=== PATIENT | male | born 1960 | race Caucasian/White ===

== ENCOUNTER 2019-11-15 11:16 | Outpatient (CLI) | payer MEDICARE, SELFPAY ==
[2019-11-15 11:28] LABS: Basophils Absolute Auto 0.01 K/mm3 (0.00-0.10); Basophils Percent Auto 0.3 % (0.0-1.0); Eosinophils Absolute Auto 0.04 K/mm3 (0.02-0.50); Hematocrit 47.8 % (40.0-54.0); Hemoglobin 16.1 g/dL (14.0-18.0); Immature Granulocyte Absolute 0.01 K/mm3 (0.00-0.00); Immature Granulocyte Percent A 0.3 % (0.0-0.0); Lymphocytes Absolute Auto 0.57 K/mm3 (1.10-4.50); Lymphocytes Percent Auto 14.4 % (18.0-42.0); Mean Corpuscular HGB Conc 33.7 g/dL (32.0-36.0); Mean Corpuscular Hemoglobin 31.4 pg (27.0-31.0); Mean Corpuscular Volume 93.4 fL (78.0-102.0); Mean Platelet Volume 9.1 fl (8.7-11.0); Monocytes Absolute Auto 0.44 K/mm3 (0.10-0.90); Monocytes Percent Auto 11.1 % (2.0-11.0); Neutrophils Absolute Auto 2.9 K/mm3 (1.7-7.2); Neutrophils Percent Auto 72.9 % (50.0-70.0); Platelet Count Result 184 K/mm3 (150-420); Red Blood Count 5.12 M/mm3 (4.70-6.10)
[2019-11-15 12:29] LABS: Alanine Aminotransferase 46 U/L (16-63); Albumin Level 3.9 g/dL (3.4-5.0); Alkaline Phosphatase 82 U/L (46-116); Anion Gap 11.2 mmol/L (7-16); Aspartate Amino Transferase 26 U/L (15-37); Bilirubin,Total 1.8 mg/dL (0.00-1.00); Blood Urea Nitrogen 11 mg/dL (7-18); Calcium 8.7 mg/dL (8.5-10.1); Carbon Dioxide 30 mmol/L (21-32); Chloride 104 mmol/L (98-108); Estimated Glomerular Filt Rate > 60; Glucose 99 mg/dL (70-99); Osmolality Calculated 291 mOsm/kg (285-295); Potassium 4.2 mmol/L (3.5-5.1); Sodium 141 mmol/L (136-145); Total Protein 6.8 g/dL (6.4-8.2)
[2019-11-18 05:27] LABS: Carcinoembryonic Antigen 0.9 ng/mL (0.0-2.4)
== END 2019-11-15 11:17 | disposition home or self-care (01) ==
LOC: CHSLAB 11:19
PROVIDERS: Visit Provider Internal Medicine Hematology & Oncology
DX: C20 Malignant neoplasm of rectum (principal)
CPT/HCPCS: 36415; 80053; 82378; 85025

== ENCOUNTER 2020-07-09 08:11 | Outpatient (CLI) | payer MEDICARE, SELFPAY ==
[2020-07-09 08:22] LABS: Basophils Absolute Auto 0.01 K/mm3 (0.00-0.10); Basophils Percent Auto 0.2 % (0.0-1.0); Eosinophils Absolute Auto 0.05 K/mm3 (0.02-0.50); Eosinophils Percent Auto 1.1 % (1.0-6.0); Hematocrit 50.9 % (40.0-54.0); Hemoglobin 17.1 g/dL (14.0-18.0); Immature Granulocyte Absolute 0.01 K/mm3 (0.00-0.00); Immature Granulocyte Percent A 0.2 % (0.0-0.0); Lymphocytes Absolute Auto 0.65 K/mm3 (1.10-4.50); Lymphocytes Percent Auto 14.1 % (18.0-42.0); Mean Corpuscular HGB Conc 33.6 g/dL (32.0-36.0); Mean Corpuscular Hemoglobin 33.1 pg (27.0-31.0); Mean Corpuscular Volume 98.5 fL (78.0-102.0); Mean Platelet Volume 9.2 fl (8.7-11.0); Monocytes Absolute Auto 0.53 K/mm3 (0.10-0.90); Monocytes Percent Auto 11.5 % (2.0-11.0); Neutrophils Absolute Auto 3.4 K/mm3 (1.7-7.2); Neutrophils Percent Auto 72.9 % (50.0-70.0); Platelet Count Result 172 K/mm3 (150-420); Red Blood Count 5.17 M/mm3 (4.70-6.10); Red Cell Distribution Width 12.6 % (11.6-14.4); White Blood Count 4.6 K/mm3 (4.8-10.8)
[2020-07-09 10:07] LABS: Alanine Aminotransferase 42 U/L (16-63); Albumin Level 4.3 g/dL (3.4-5.0); Alkaline Phosphatase 84 U/L (46-116); Anion Gap 9 mmol/L (8-16); Aspartate Amino Transferase 25 U/L (15-37); Bilirubin,Total 2.7 mg/dL (0.00-1.00); Blood Urea Nitrogen 14 mg/dL (7-18); Carbon Dioxide 31 mmol/L (21-32); Chloride 101 mmol/L (98-108); Cholesterol 186 mg/dL (0-200); Estimated Glomerular Filt Rate > 60; Glucose 100 mg/dL (70-99); HDL Direct 74 mg/dL (40-60); LDL Cholesterol Calculated 100 mg/dL (<130); Osmolality Calculated 292 mOsm/kg (285-295); Potassium 3.8 mmol/L (3.5-5.1); Sodium 141 mmol/L (136-145); Total Protein 7.5 g/dL (6.4-8.2); Triglycerides 60 mg/dL (0-150)
[2020-07-09 10:14] LABS: Prostate Specific Antigen < 0.1 ng/mL (< OR = 4.0)
[2020-07-11 12:35] LABS: Carcinoembryonic Antigen 0.8 ng/mL (0.0-2.4)
== END 2020-07-09 08:12 | disposition home or self-care (01) ==
PROVIDERS: PCP Family Medicine; Visit Provider Internal Medicine Hematology & Oncology
DX: Z13.220 Encounter for screening for lipoid disorders (principal); Z12.5 Encounter for screening for malignant neoplasm of prostate; I10 Essential (primary) hypertension; C20 Malignant neoplasm of rectum
CPT/HCPCS: 36415; 80053; 80061; 82378; 84153; 85025; G0103

== ENCOUNTER 2021-02-11 11:27 | Outpatient (CLI) | payer MEDICARE, SELFPAY ==
[2021-02-11 11:37] LABS: Basophils Absolute Auto 0.01 K/mm3 (0.00-0.10); Basophils Percent Auto 0.2 % (0.0-1.0); Eosinophils Absolute Auto 0.03 K/mm3 (0.02-0.50); Eosinophils Percent Auto 0.7 % (1.0-6.0); Hematocrit 50.9 % (40.0-54.0); Immature Granulocyte Absolute 0.01 K/mm3 (0.00-0.00); Immature Granulocyte Percent A 0.2 % (0.0-0.0); Lymphocytes Absolute Auto 0.64 K/mm3 (1.10-4.50); Mean Corpuscular HGB Conc 33.4 g/dL (32.0-36.0); Mean Corpuscular Hemoglobin 32.3 pg (27.0-31.0); Mean Corpuscular Volume 96.6 fL (78.0-102.0); Mean Platelet Volume 9.2 fl (8.7-11.0); Monocytes Absolute Auto 0.49 K/mm3 (0.10-0.90); Monocytes Percent Auto 10.7 % (2.0-11.0); Neutrophils Absolute Auto 3.4 K/mm3 (1.7-7.2); Neutrophils Percent Auto 74.2 % (50.0-70.0); Platelet Count Result 169 K/mm3 (150-420); Red Blood Count 5.27 M/mm3 (4.70-6.10); Red Cell Distribution Width 12.5 % (11.6-14.4); White Blood Count 4.6 K/mm3 (4.8-10.8)
[2021-02-11 12:16] LABS: Alanine Aminotransferase 47 U/L (16-63); Albumin Level 3.9 g/dL (3.4-5.0); Alkaline Phosphatase 94 U/L (46-116); Anion Gap 5 mmol/L (8-16); Aspartate Amino Transferase 23 U/L (15-37); Blood Urea Nitrogen 17 mg/dL (7-18); Calcium 8.8 mg/dL (8.5-10.1); Carbon Dioxide 34 mmol/L (21-32); Chloride 101 mmol/L (98-108); Estimated Glomerular Filt Rate > 60; Glucose 94 mg/dL (70-99); Osmolality Calculated 291 mOsm/kg (285-295); Potassium 4.1 mmol/L (3.5-5.1); Sodium 140 mmol/L (136-145); Total Protein 6.8 g/dL (6.4-8.2)
[2021-02-14 10:26] LABS: Carcinoembryonic Antigen 1.3 ng/mL (0.0-2.4)
== END 2021-02-11 11:28 | disposition home or self-care (01) ==
LOC: CHSLAB 11:29
PROVIDERS: PCP Family Medicine; Visit Provider Internal Medicine Hematology & Oncology
DX: C20 Malignant neoplasm of rectum (principal)
CPT/HCPCS: 36415; 80053; 82378; 85025

== ENCOUNTER 2022-12-07 11:21 | Outpatient (CLI) | payer MEDICARE, SELFPAY ==
[2022-12-07 11:42] LABS: Basophils Absolute Auto 0.01 K/mm3 (0.00-0.10); Basophils Percent Auto 0.2 % (0.0-1.0); Eosinophils Absolute Auto 0.03 K/mm3 (0.02-0.50); Eosinophils Percent Auto 0.6 % (1.0-6.0); Hematocrit 51.5 % (40.0-54.0); Hemoglobin 16.9 g/dL (14.0-18.0); Immature Granulocyte Absolute 0.01 K/mm3 (0.00-0.00); Immature Granulocyte Percent A 0.2 % (0.0-0.0); Lymphocytes Absolute Auto 0.69 K/mm3 (1.10-4.50); Lymphocytes Percent Auto 13.2 % (18.0-42.0); Mean Corpuscular HGB Conc 32.8 g/dL (32.0-36.0); Mean Corpuscular Hemoglobin 31.6 pg (27.0-31.0); Mean Corpuscular Volume 96.3 fL (78.0-102.0); Mean Platelet Volume 9.3 fl (8.7-11.0); Monocytes Absolute Auto 0.53 K/mm3 (0.10-0.90); Monocytes Percent Auto 10.2 % (2.0-11.0); Neutrophils Percent Auto 75.6 % (50.0-70.0); Platelet Count Result 181 K/mm3 (150-420); Red Blood Count 5.35 M/mm3 (4.70-6.10); Red Cell Distribution Width 12.7 % (11.6-14.4); White Blood Count 5.2 K/mm3 (4.8-10.8)
[2022-12-07 12:24] LABS: Alanine Aminotransferase 40 U/L (16-63); Albumin Level 3.9 g/dL (3.4-5.0); Alkaline Phosphatase 97 U/L (46-116); Anion Gap 5 mmol/L (8-16); Aspartate Amino Transferase 21 U/L (15-37); Bilirubin,Total 1.8 mg/dL (0.00-1.00); Blood Urea Nitrogen 13 mg/dL (7-18); Calcium 8.5 mg/dL (8.5-10.1); Carbon Dioxide 36 mmol/L (21-32); Chloride 101 mmol/L (98-108); Estimated Glomerular Filt Rate > 60; Glucose 90 mg/dL (70-99); Osmolality Calculated 294 mOsm/kg (285-295); Potassium 4.2 mmol/L (3.5-5.1); Sodium 142 mmol/L (136-145); Total Protein 6.8 g/dL (6.4-8.2)
[2022-12-10 04:37] LABS: Carcinoembryonic Antigen <2.0 ng/mL (0.0-2.4)
== END 2022-12-07 11:22 | disposition home or self-care (01) ==
LOC: CHSLAB 11:24
PROVIDERS: PCP Family Medicine; Visit Provider Internal Medicine Hematology & Oncology
DX: C20 Malignant neoplasm of rectum (principal); C77.2 Secondary and unspecified malignant neoplasm of intra-abdominal lymph nodes
CPT/HCPCS: 36415; 80053; 82378; 85025

== ENCOUNTER 2024-11-28 12:31 | Inpatient (IN) | payer MEDICARE, OTHER, SELFPAY ==
[2024-11-28] VITALS (49 sets, daily range): BP systolic 128–173; BP diastolic 67–108; PULSE 77–111; RESP 14–22; TEMP 36.1–36.9; O2SAT 85–97; BMI 32.8
--- NOTE | ~2024-11-28 | XR_ITS ---
EXAMINATION: XR chest 1V portable DATE: 11/28/2024 13:24 INDICATION: Shortness of breath TECHNIQUE: frontal view of the chest was obtained. COMPARISON: Chest radiograph dated 12/02/2017 FINDINGS: Small lung volume with increasing elevation the right hemidiaphragm. Airspace opacity medial right lo wer lung zone which could represent atelectasis or pneumonia. Linear opacity left lung base consisten t with discoid atelectasis. No pulmonary edema, pleural effusion or pneumothorax. Heart size is withi n normal limits for AP technique. Moderate cervical thoracic dextroscoliosis and thoracal lumbar levo scoliosis. Again seen is a fractured Sampson dawit along the right side of the thoracolumbar spine w ith proximal laminar hook. IMPRESSION: 1. Elevation the right hemidiaphragm with decreased right lung volume and focal opacity at the medial right lower lung zone which could represent associated atelectasis although differential includes pn eumonia. Reviewed, dictated and finalized at location A. ADER OPERATOR AUTOMATIC IMPRESSION: 1. Elevation the right hemidiaphragm with decreased right lung volume and focal opacity at the medial right lower lung zone which could represent associated a telectasis although differential includes pneumonia.
--- NOTE | ~2024-11-28 | CT_ITS ---
Non-contrast Head CT History: Confusion Technique: Axial non-contrast imaging of the brain was performed. Dose reduction technique was used on this scan by utilizing automated exposure control and iterative reconstruction technique. The dose -length product (DLP) was 681.00 mGy-cm. Findings: There is no evidence of intracranial hemorrhage, mass lesion, or acute infarct. Brain par enchyma appears normal. The ventricles and subarachnoid spaces are normal in size. The calvarium ap pears normal. The visualized paranasal sinuses and mastoid air cells are clear. Impression: No significant abnormality seen. Reviewed, dictated and finalized at location . MAKER EXPERIMENTAL Impression: No significant abnormality seen.
--- NOTE | 2024-11-28 12:35 | ED_ITS ---
HPI - SOB/Dyspnea General Chief Complaint: Shortness of Breath/Dyspnea Stated Complaint: S.O.B. Time Seen by Provider: 11/28/24 12:33 Source: patient Mode of arrival: ambulatory Limitations: no limitations History of Present Illness HPI Narrative: 64-year-old male with a history of rectal cancer status post resection with ostomy, severe kyphoscoliosis status post surgery, adult onset asthma, presents to the ED with a 2 week history of -- shortness of breath/ chest congestion. hypoxic on presentation. -- cough which is productive of mucopurulent sputum -- fever-- which is intermittent MD elicited complaint: shortness of breath and cough Pertinent past history: asthma Onset (ago): week(s) ( Two weeks) Timing: constant Severity: severe Exacerbating factors: nothing Relieving factors: nothing Known history of: asthma Associated symptoms: denies other symptoms and fever Treatment prior to arrival: none Related Data Home Medications ?Medication ?Instructions ?Recorded ?Confirmed ?Last Taken ?Type No Home Medications 11/28/24 11/28/24 Unknown History Allergies Allergy/AdvReac Type Severity Reaction Status Date / Time Sulfa (Sulfonamide Allergy Intermediate Rash Verified 11/28/24 13:08 Antibiotics) Review of Systems 2 Review of Systems: All systems reviewed & are unremarkable except as noted in HPI and below Constitutional: Constitutional: Reports as per HPI, Reports no additional constitutional complaints and Reports fever(s) Eyes: Eyes: Reports as per HPI and Reports no additional eye complaints ENT: Reports system reviewed and no additional complaints, except as documented and Reports as per HPI Cardiovascular: Cardiovascular: Reports as per HPI and Reports no additional cardiovascular complaints Respiratory: Respiratory: Reports as per HPI, Reports no additional respiratory complaints, Reports chest congestion, Reports cough, Reports dyspnea and Reports wheezing Gastrointestinal: Gastrointestinal: Reports as per HPI and Reports no additional gastrointestinal complaints Comments: ostomy is functioning Genitourinary: Genitourinary: Reports no additional male genitourinary complaints and Reports as per HPI Musculoskeletal: Musculoskeletal: Reports no additional musculoskeletal complaints and Reports as per HPI Integumentary/Breasts: Skin/Breast: Reports system reviewed and no additional complaints, except as docu and Reports as per HPI Neurologic: Reports system reviewed and no additional complaints, except as documented and Reports as per HPI Psychiatric: Psychiatric: Reports no additional psychiatric complaints and Reports as per HPI Endocrine: Endocrine: Reports no additional endocrine complaints and Reports as per HPI Hematologic/Lymphatic: Hematologic/Lymphatic: Reports no additional hematologic/lymphatic complaints and Reports as per HPI Allergic/Immunologic: Allergic/Immunologic: Reports no additional allergic/immunologic complaints and Reports as per HPI [facility] Past Medical History Medical History (Updated 11/28/24 @ 16:35 by Goyo Treviño MD) Kyphoscoliosis Asthma Family History Family History Father Family history of cardiovascular disease Social History Social History Smoking status: Former smoker Smoking end date: 10/10/86 Alcohol intake: current Exam 2 Narrative: hypoxic on presentation. Currently on 2 L of O2 with an oxygen saturation of 93% afebrile. Const: Orientation/consciousness: patient oriented x3 Limitations: no limitations HENMT: Head: normal to inspection Ears: external ears normal F itz/Nose/Sinus: Normal external nose present Face and sinus: normal facial exam Mouth: Yes Normal oral and palatal mucosa present Throat: posterior oropharynx normal Eyes: Conjunctivae: conjunctivae normal Pupils: Equal, round and reactive pupils present EOM: EOMs intact bilaterally Direct Ophthalmoscopy: no photophobia Neck: Neck: normal visual inspection, no lymphadenopathy and no meningeal signs Chest: Chest palpation & inspection: normal inspection of the chest Resp: Effort & Inspection: labored Other: Bilateral wheezing rales left base Cardio: Rate: regular rate Rhythm: regular rhythm GI: GI Palp: Yes Soft to palpation Auscultation: normal bowel sounds O ther: no tenderness/ rigidity / rebound. Ostomy is functioning : General: Yes no CVA tenderness Back/Spine/Pelvis: Back: no CVA tenderness Other: back scar from surgery for kyphoscoliosis. Skin: General skin exam: normal color Rashes: no rashes Wounds: no wounds Neuro: General: patient oriented x3, moves all extremities, no meningeal signs, no focal motor deficits and CN's II-XI intact bilaterally Cranial nerves: Yes Nystagmus not present Speech: normal speech Gait exam (Neuro): Normal gait present Extrem: General: normal to inspection and no clubbing, cyanosis or edema Psych: Mental Status: mental status grossly normal Affect: normal affect Attitude: cooperative Course Course Emergency Course: Acute hypoxic hypercarbic respiratory failure secondary to asthma exacerbation/ influenza a/ right mid lobe infiltrate/atelectasis kyphoscoliosis elevated troponin-- Troponin was noted to be 79. Repeat troponin was 85.5. EKG does not show any acute findings. Vital Signs Vital signs: Vital Signs Pulse Oximetry 85 L 11/28/24 12:31 Oxygen Delivery Room Air 11/28/24 12:31 Temperature 36.9 C 11/28/24 12:33 Pulse Rate 91 11/28/24 14:46 Respiratory Rate 16 11/28/24 14:46 Blood Pressure 132/77 11/28/24 14:46 Pulse Oximetry 92 11/28/24 14:31 Oxygen Delivery Nasal Cannula 11/28/24 14:46 Oxygen Flow Rate 2 11/28/24 14:46 MDM - SOB/Dyspnea MDM Narrative Medical decision making narrative: Acute hypoxic hypercarbic respiratory failure secondary to influenza a, asthma exacerbation, kyphoscoliosis Differential Diagnosis Differential diagnosis: Likely acute exacerbation of chronic obstructive airways disease, community acquired pneumonia and pulmonary embolism Medical Records Attestation: I reviewed the patient's medical records. Lab Data Attestation: I reviewed the patient's lab results. 11/28/24 13:12 11/28/24 13:12 Labs: Lab Results 11/28/24 11/28/24 11/28/24 Range/Units 12:56 13:12 15:29 WBC 8.3 (4.8-10.8) K/mm3 RBC 5.80 (4.70-6.10) M/mm3 Hgb 16.0 (14.0-18.0) g/dL Hct 53.1 (40.0-54.0) % MCV 91.6 (78.0-102.0) fL MCH 27.6 (27.0-31.0) pg MCHC 30.1 L (32-36) g/dL RDW 17.7 H (11.6-14.4) % Plt Count 279 (150-420) K/mm3 MPV 9.4 (8.7-11.0) fl Immature Gran % (Auto) Not Reportable Neut % (Auto) Not Reportable Lymph % (Auto) Not Reportable Rincon % (Auto) Not Reportable Eos % (Auto) Not Reportable Baso % (Auto) Not Reportable Lymph # (Auto) Not Reportable Rincon # (Auto) Not Reportable Eos # (Auto) Not Reportable Baso # (Auto) Not Reportable Abs Immat Gran (auto) Not Reportable Absolute Neuts (auto) Not Reportable Absolute Nucleated RBC Not Reportable Total Counted 100 Neutrophils % (Manual) 84 H (46-73) % Band Neutrophils % 0 (0-6) % Lymphocytes % (Manual) 8 L (18-44) % Monocytes % (Manual) 8 (3-9) % Nucleated RBC % Not Reportable Abs Neuts (Manual) 6.97 H (1.3-6.7) K/mm3 Abs Lymphs (Manual) 0.66 L (1.1-4.5) K/mm3 Abs Monocytes (Manual) 0.66 (0.1-0.90) K/mm3 Nucleated RBCs 1 % Platelet Estimate Adequate (Adequate) Schistocytes Not Reportable PT 11.7 (9.50-12.1) Seconds INR 1.1 APTT 26.7 (23.9-30.70) Sec D-Dimer 0.36 (0.19-0.50) mg/L Sodium 140 (136-145) mmol/L Potassium 4.0 (3.5-5.1) mmol/L Chloride 98 (98-108) mmol/L Carbon Dioxide 40 H (21-32) mmol/L Anion Gap 2 L (4-12) mmol/L BUN 34 H (7-18) mg/dL Creatinine 0.96 (0.70-1.30) mg/dL Estim Creat Clear Calc 75 ml/min Estimated GFR > 60 (59 - ) Glucose 114 H (70-99) mg/dL Calculated Osmolality 298 H (285-295) mOsm/kg Lactic Acid 1.5 (0.4-2.0) mmol/L Calcium 8.6 (8.5-10.1) mg/dL Total Bilirubin 1.7 H (0.00-1.00) mg/dL AST 34 (15-37) U/L ALT 75 H (16-63) U/L Alkaline Phosphatase 156 H (46-116) U/L Troponin I 78.9 H* 85.5 H* (0.00-60.4) ng/L NT-Pro-B Natriuret Pep 4042 H (0-125) pg/mL Total Protein 7.1 (6.4-8.2) g/dL Albumin 3.1 L (3.4-5.0) g/dL Lipase 37 (16-77) U/L TSH 1.95 (0.36-3.74) uIU/mL Influenza A (RT-PCR) Positive A (Negative) Influenza B (RT-PCR) Negative (Negative) RSV (RT-PCR) Negative (Negative) SARS-CoV-2 RNA (RT-PCR) Negative (Negative) ABG Data ABG results: 11/28/24 13:35 Puncture Site Right radial ABG pH 7.33 L ABG pCO2 51.8 H ABG pO2 58.5 L ABG HCO3 26.9 ABG O2 Saturation 87.8 L ABG Base Excess 0.1 Oxyhemoglobin 86.0 L O2 Delivery Device Nasal cannula O2 Liters/Min 2.0 ECG Data EKG #1: ECG completion date: 11/28/24 ECG completion time: 13:02 Interpretation: Normal sinus rhythm. Normal axis. Left ventricular hypertrophy. T inversion in inferolateral leads. No ST elevation. Discharge Plan Discharge Clinical Impression: Kyphoscoliosis Respiratory failure with hypoxia and hypercapnia Qualifiers: Chronicity: acute Qualified Code(s): J96.01 - Acute respiratory failure with hypoxia Asthma exacerbation Qualifiers: Asthma severity: moderate Asthma persistence: persistent Qualified Code(s): J 45.41 - Moderate persistent asthma with (acute) exacerbation Patient Disposition: [facility] Condition: Stable Patient Language: Fijian Prescriptions: No Action No Home Medications Follow-up/Referrals: UNKNOWN,DOCTOR [Primary Care Provider] - Time of Disposition: 16:49
--- OUTSIDE RECORDS SUMMARY | 2024-11-28 12:35 | XMS_ITS | Clinical Summary ---
Author Organization [facility] Address [address] [place] [id number] Care Team Providers Care Snack Bar Cashier Name Role Phone Celi Falk SHERLEY Primary Care Provider +1- [phone] Allergies Active Allergy Reactions Criticality Noted Date Comments Pentoxifylline Nausea Only,Dizziness 03/18/2021 Abdominal pain Sulfa Antibiotics Hives 03/18/2021 Medications No known medications Active Problems Problem Noted Date Diagnosed Date Primary hypertension 12/13/2022 Rectal cancer metastasized t o intra-abdominal lymph node ([facility]) 03/18/2021 Social History Tobacco Use Types Packs/Day Years Used Date Smoking Tobacco: Never Smokeless Tobacco: Never Tobacco Cessation:Counseling Given: Not Answered Sex and Gender Information Value Date Recorded Sex Assigned at Not on file Legal Sex Male 5:47 PM PROFESSIONAL HOUSING CONSULTANT Gender Identity Not on file Sexual Orientation Not on file Last Filed Vital Signs Vital Sign Reading Time Taken Comments Blood Pressure 198/121 12/13/2022 2:01 PM PROFESSIONAL HOUSING CONSULTANT Pulse 113 12/13/2022 2:01 PM PROFESSIONAL HOUSING CONSULTANT Temperature 36.2 C (97.2 F) 12/13/2022 2:01 PM PROFESSIONAL HOUSING CONSULTANT Respiratory Rate 22 11/18/2021 11:45 AM PROFESSIONAL HOUSING CONSULTANT Oxygen Saturation 96% 11/18/2021 11:45 AM PROFESSIONAL HOUSING CONSULTANT Inhaled Oxygen Concentration - - Weight 94.4 kg (208 lb 3.2 oz) 12/13/2022 2:01 P M PROFESSIONAL HOUSING CONSULTANT Height - - Body Mass Index - - Plan of Treatment Health Maintenance Due Date Last Done Comments Annual Physical 1963 Hepatitis C 1978 DTaP, Tdap and Td Vaccines ( 1 - Tdap) 1979 Zoster Vaccines (1 of 2) 2010 COVID-19 Vaccine (2023-2 5 season) 2024 Influenza Adult (#1) 2024 RSV Immunization or 60+ Years (1 - 1-dose 75+ series) 2035 Meningococcal B Vaccine Aged Out No l onger eligible based on patient's age to complete this topic Meningococcal Vaccine Aged Out No diane sisi eligible based on patient's age to complete this topic Pneumococcal Vaccine: Pediat rics (0 to 5 Years) and At-Risk Patients (6 to 64 Years) Aged Out No longer eligible b ased on patient's age to complete this topic RSV Immunizations Under 20 Months Aged Out No longer eligible based on patient's age to complete this topic Insurance MEDICARE [facility] COMMERCIAL PAYER Care Teams Snack Bar Cashier Relationship Specialty Start Date End Date Celi Falk FNP PCP - General NURSE PRACTITIONER 7/19/19
--- OUTSIDE RECORDS SUMMARY | 2024-11-28 12:35 | XMS_ITS | Encounter Summary ---
Author Organization [facility] Address [address] [place] [address] Care Team Providers Care Power Plant Inspector Name Role Phone Celi Falk SHERLEY Primary Care Provider +1- [phone] Reason for Referral * Imaging (Routine) - Closed Specialty Diagnoses / Procedures Referred By Contac t Referred To Contact RADIOLOGY Diagnoses Rectal cancer ([facility]/HCC [facility]/HCC) Procedures CT CHEST+ABD+PEL W CON Juliano Mustafa MD Phone: tel: fax: Referral ID Status Reason Start Date Expiration Date Visits Re quested Visits Authorized [id number] Closed 10/17/2019 11/17/2020 1 1 GRAPH REPEATER TECHNICIAN Encounter Details Date Type Department Care Team (Late st Contact Info) Description 10/17/2019 Community Orders [facility] EPICCARE LINK Juliano Mustafa MD [address] [place] [id number] Social History Tobacco Use Types Packs/Day Years Used Date Smoking Tobacco: Never Assessed Sex and Gender Information Value Date Recorded Sex Assigned at Not on file Legal Sex Male 5:47 PM TELEGRAPH REPEATER TECHNICIAN Gender Identity Not on file Sexual Orientation Not on file documented as of this encounter Plan of Treatment Not on file documented as of this encounter Results * CT CHEST+ABD+PEL W CON (11/13/2019 10:41 AM TELEGRAPH REPEATER TECHNICIAN) Anatomical Region Laterality Modality Chest, Abdomen, Pelvis Computed Tomography 11/14/2019 1:44 PM TELEGRAPH REPEATER TECHNICIAN Impressions 11/14/2019 1:55 PM TELEGRAPH REPEATER TECHNICIAN Impression: 1. Stable postsurgical changes of the colon with no definite signs of recurrent neoplasm. 2. No evidence of metastatic disease within the chest, abdomen or pelvis. 3. Stable soft tissue density in the presacral space, favored to represent posttreatment changes. Interpreted By: Obey Fierro MD, 11/14/2019 1:44 PM Narrative 11/14/2019 1:55 PM TELEGRAPH REPEATER TECHNICIAN Examination: CT chest, abdomen and pelvis with IV contrast. Clinical Information: History of rectal cancer status post resection and chemotherapy. Surveillance examination. Comparison:CT 05/09/2019 and 11/06/2018. Technique: IV contrast: 98 mL Isovue 370. Oral contrast: Oral contrast was utilized. Technical comments: Standard technique. Dose reduction: This CT exam was performed using one or more of the following dose reduction techniques: Automated exposure control, adjustment of the mA and/or kV according to patient size, and/or use of iterative reconstruction technique. Findings: MEDIASTINUM Support tubes and lines: None. Base of neck/thyroid: Negative. Heart: Normal in size. No pericardial effusion. Lymph nodes: No supraclavicular, axillary, internal mammary, mediastinal, or hilar adenopathy. LUNGS AND PLEURA Lungs: Clear without focal or diffuse abnormality. Pleura: No pleural effusion, thickening, or calcification. UPPER ABDOMEN Liver and bile ducts: No focal liver lesion. Portal vein and hepatic veins are patent. No biliary dilatation. Gallbladder: Gallbladder in situ. No gallbladder wall thickening or pericholecystic fluid. Pancreas: Normal. Spleen: Normal. RETROPERITONEUM Adrenals: Normal. Kidneys: Normal. Lymph nodes: No lymphadenopathy in the abdomen or pelvis. BOWEL AND PERITONEUM Bowel: Postsurgical changes of colon resection with left lower quadrant colostomy. Soft tissue thickening and stranding is seen in the presacral space, presumed to be related to postradiation changes. No suspicious wall thickening or definite recurrent neoplasm is identified. A few scattered colonic diverticula are noted. No wall thickening or inflammatory changes. No bowel obstruction is seen. Free air or fluid: None. VASCULATURE The abdominal aorta is normal in caliber. PELVIS The prostate seminal vesicles appear unremarkable. The urinary bladder appears unremarkable. BONES/SOFT TISSUES Severe levoscoliosis of the lumbar spine. Surgical changes of the thoracolumbar spine noted. Significant fusion of numerous lumbar vertebral bodies and spinous processes. No suspicious osseous lesion noted. Procedure Note Obey Fierro MD - 11/14/2019 Examination: CT chest, abdomen and pelvis with IV contrast. Clinical Information: History of rectal cancer status post resection andchemotherapy. Surveillance examination. Comparison:CT 05/09/2019 and 11/06/2018. Technique: IV contrast: 98 mL Isovue 370. Oral contrast: Oral contrast was utilized. Technical comments: Standard technique. Dose reduction: This CT exam was performed using one or more of thefollowing dose reduction techniques: Automated exposure control,adjustment of the mA and/or kV according to patient size, and/or use ofiterative reconstruction technique. Findings: MEDIASTINUM Support tubes and lines: None. Base of neck/thyroid: Negative. Heart: Normal in size. No pericardial effusion. Lymph nodes: No supraclavicular, axillary, internal mammary, mediastinal,or hilar adenopathy. LUNGS AND PLEURA Lungs: Clear without focal or diffuse abnormality. Pleura: No pleural effusion, thickening, or calcification. UPPER ABDOMEN Liver and bile ducts: No focal liver lesion. Portal vein and hepaticveins are patent. No biliary dilatation. Gallbladder: Gallbladder in situ. No gallbladder wall thickening orpericholecystic fluid. Pancreas: Normal. Spleen: Normal. RETROPERITONEUM Adrenals: Normal. Kidneys: Normal. Lymph nodes: No lymphadenopathy in the abdomen or pelvis. BOWEL AND PERITONEUM Bowel: Postsurgical changes of colon resection with left lower quadrantcolostomy. Soft tissue thickening and stranding is seen in the presacralspace, presumed to be related to postradiation changes. No suspiciouswall thickening or definite recurrent neoplasm is identified. A fewscattered colonic diverticula are noted. No wall thickening orinflammatory changes. No bowel obstruction is seen. Free air or fluid: None. VASCULATURE The abdominal aorta is normal in caliber. PELVIS The prostate seminal vesicles appear unremarkable. The urinary bladderappears unremarkable. BONES/SOFT TISSUES Severe levoscoliosis of the lumbar spine. Surgical changes of thethoracolumbar spine noted. Significant fusion of numerous lumbarvertebral bodies and spinous processes. No suspicious osseous lesionnoted. Impression: 1. Stable postsurgical changes of the colon with no definite signs ofrecurrent neoplasm. 2. No evidence of metastatic disease within the chest, abdomen orpelvis. 3. Stable soft tissue density in the presacral space, favored torepresent posttreatment changes. Interpreted By: Obey Fierro MD, 11/14/2019 1:44 PM Juliano Erik Mustafa MD CT Final Result documented in this encounter Visit Diagnoses Diagnosis Rectal cancer (CMS/HCC HHS/HCC)- Primary Malignant neoplasm of rectum Rectal cancer (CMS/HCC HHS/HCC) Malignant neoplasm of rectum documented in this encounter Care Teams Power Plant Inspector Relationship Specialty Start Date End Date Celi Falk FNP PCP - General NURSE PRACTITIONER 04/27/19 documented as of this encounter
--- NOTE | 2024-11-28 12:51 | ECG_ITS ---
Test Date: 2024-11-28 13:02:56 Measurements Intervals [place] Rate: 82 P: 17 NJ: 142 QRS: 81 QRSD: 101 T: -42 QT: 378 QTc: 444 Interpretive Statements SINUS RHYTHM WITH ATRIAL PREMATURE COMPLEX LEFT VENTRICULAR HYPERTROPHY WITH ST-T CHANGE BORDERLINE R WAVE PROGRESSION, ANTERIOR LEADS MINIMAL Q WAVES- INF/HIGH LAT LEADS ST-T WAVE ABNORMALITY IN INFERIOR LEADS- CONSIDER ISCHEMIA ABNORMAL ECG No previous ECG available for comparison Electronically Signed On 11-28-2024 13:36:23 [employer]REBRICK LAYER by Johnnie Lux D.O.
--- NOTE | 2024-11-28 13:03 | PC.NURSE ---
Covid Culture sent to lab
[2024-11-28] MEDS: IPRATROPIUM 0.5 MG/ALBUTEROL SULFATE 2.5 MG AMPUL.NEB 3 ML INHALATION (13:11)
[2024-11-28 13:21] LABS: Hematocrit 53.1 % (40.0-54.0); Mean Corpuscular HGB Conc 30.1 g/dL (32-36); Mean Corpuscular Hemoglobin 27.6 pg (27.0-31.0); Mean Corpuscular Volume 91.6 fL (78.0-102.0); Mean Platelet Volume 9.4 fl (8.7-11.0); Platelet Count Result 279 K/mm3 (150-420); Red Cell Distribution Width 17.7 % (11.6-14.4); White Blood Count 8.3 K/mm3 (4.8-10.8)
[2024-11-28] MEDS: methylPREDNISolone SOD SUCC 125 MG VIAL IM (13:24)
--- OUTSIDE RECORDS SUMMARY | 2024-11-28 13:24 | XMS_ITS | Encounter Summary ---
Author Organization [facility] Address [address] [place] [address] Care Team Providers Care Warehouse Delivery Manager Name Role Phone Celi Falk SHERLEY Primary Care Provider +1- [phone] Reason for Referral * Imaging (Routine) - Closed Specialty Diagnoses / Procedures Referred By Contac t Referred To Contact RADIOLOGY Diagnoses Rectal cancer ([facility]/HCC [facility]/HCC) Procedures CT CHEST+ABD+PEL W CON Juliano Mustafa MD Phone: tel: fax: Referral ID Status Reason Start Date Expiration Date Visits Re quested Visits Authorized [id number] Closed 10/17/2019 11/17/2020 1 1 SCRAPER Encounter Details Date Type Department Care Team (Late st Contact Info) Description 10/17/2019 Community Orders [facility] EPICCARE LINK Juliano Mustafa MD [address] [place] [id number] Social History Tobacco Use Types Packs/Day Years Used Date Smoking Tobacco: Never Assessed Sex and Gender Information Value Date Recorded Sex Assigned at Not on file Legal Sex Male 5:47 PM SOLE SCRAPER Gender Identity Not on file Sexual Orientation Not on file documented as of this encounter Plan of Treatment Not on file documented as of this encounter Results * CT CHEST+ABD+PEL W CON (11/13/2019 10:41 AM SOLE SCRAPER) Anatomical Region Laterality Modality Chest, Abdomen, Pelvis Computed Tomography 11/14/2019 1:44 PM SOLE SCRAPER Impressions 11/14/2019 1:55 PM SOLE SCRAPER Impression: 1. Stable postsurgical changes of the colon with no definite signs of recurrent neoplasm. 2. No evidence of metastatic disease within the chest, abdomen or pelvis. 3. Stable soft tissue density in the presacral space, favored to represent posttreatment changes. Interpreted By: Obey Fierro MD, 11/14/2019 1:44 PM Narrative 11/14/2019 1:55 PM SOLE SCRAPER Examination: CT chest, abdomen and pelvis with [...] rectum documented in this encounter Care Teams Warehouse Delivery Manager Relationship Specialty Start Date End Date Celi Falk FNP PCP - General NURSE PRACTITIONER 04/27/19 documented as of this encounter
--- OUTSIDE RECORDS SUMMARY | 2024-11-28 13:24 | XMS_ITS | Clinical Summary ---
Author Organization [facility] Address [address] [place] [id number] Care Team Providers Care Screen Examiner Name Role Phone Celi Falk SHERLEY Primary Care Provider +1- [phone] Allergies Active Allergy Reactions Criticality Noted Date Comments Pentoxifylline Nausea Only,Dizziness 03/18/2021 Abdominal pain Sulfa Antibiotics Hives 03/18/2021 Medications No known medications Active Problems Problem Noted Date Diagnosed Date Primary hypertension 12/13/2022 Rectal cancer metastasized t o intra-abdominal lymph node ([facility]) 03/18/2021 Social History Tobacco Use Types Packs/Day Years Used Date Smoking Tobacco: Never Smokeless Tobacco: Never Tobacco Cessation:Counseling Given: Not Answered Sex and Gender Information Value Date Recorded Sex Assigned at Not on file Legal Sex Male 5:47 PM TRANSPORT ASSISTANT Gender Identity Not on file Sexual Orientation Not on file Last Filed Vital Signs Vital Sign Reading Time Taken Comments Blood Pressure 198/121 12/13/2022 2:01 PM TRANSPORT ASSISTANT Pulse 113 12/13/2022 2:01 PM TRANSPORT ASSISTANT Temperature 36.2 C (97.2 F) 12/13/2022 2:01 PM TRANSPORT ASSISTANT Respiratory Rate 22 11/18/2021 11:45 AM TRANSPORT ASSISTANT Oxygen Saturation 96% 11/18/2021 11:45 AM TRANSPORT ASSISTANT Inhaled Oxygen Concentration - - Weight 94.4 kg (208 lb 3.2 oz) 12/13/2022 2:01 P M TRANSPORT ASSISTANT Height - - Body Mass Index - [...] age to complete this topic Insurance MEDICARE [facility] COMMERCIAL PAYER Care Teams Screen Examiner Relationship Specialty Start Date End Date Celi Falk FNP PCP - General NURSE PRACTITIONER 7/19/19
[2024-11-28 13:36] LABS: Band Neutrophils Percent 0 % (0-6); D Dimer 0.36 mg/L (0.19-0.50); INR 1.1; Lymphocytes Absolute Manual 0.66 K/mm3 (1.1-4.5); Lymphocytes Percent Manual 8 % (18-44); Monocytes Absolute Manual 0.66 K/mm3 (0.1-0.90); Monocytes Percent Manual 8 % (3-9); Neutrophils Absolute Manual 6.97 K/mm3 (1.3-6.7); Neutrophils Percent Manual 84 % (46-73); Nucleated Red Blood Cells 1 %; Partial Thromboplastin Time 26.7 Sec (23.9-30.70); Platelet Estimate Adequate (Adequate); Prothrombin Time 11.7 Seconds (9.50-12.1); Total Cells Counted 100
[2024-11-28 13:38] LABS: Base Excess ABG 0.1 mmol/L (0-2); HCO3 ABG 26.9 mmol/L (23-29); Oxygen Saturation ABG 87.8 % (95-97); PCO2 ABG 51.8 mmHg (35-45); PO2 ABG 58.5 mmHg (80-90); pH ABG 7.33 (7.35-7.45)
[2024-11-28 13:40] LABS: Lactic Acid Reflex 1.5 mmol/L (0.4-2.0)
[2024-11-28 13:41] LABS: Device NASAL CANNULA; Modified Allen's Test Pass; Site Drawn RIGHT RADIAL
[2024-11-28 13:41] LABS: Influenza A QL RT-PCR Positive (Negative); Influenza B QL RT-PCR Negative (Negative); RSV RNA, RT-PCR Negative (Negative); SARS-CoV-2 RNA PCR Negative (Negative)
[2024-11-28 13:47] LABS: Alanine Aminotransferase 75 U/L (16-63); Albumin Level 3.1 g/dL (3.4-5.0); Alkaline Phosphatase 156 U/L (46-116); Anion Gap 2 mmol/L (4-12); Aspartate Amino Transferase 34 U/L (15-37); Bilirubin,Total 1.7 mg/dL (0.00-1.00); Blood Urea Nitrogen 34 mg/dL (7-18); Calcium 8.6 mg/dL (8.5-10.1); Carbon Dioxide 40 mmol/L (21-32); Chloride 98 mmol/L (98-108); Estimated CRCL calculation 75 ml/min; Estimated Glomerular Filt Rate > 60; Glucose 114 mg/dL (70-99); Lipase 37 U/L (16-77); NT Pro B Type Natriuretic Pept 4042 pg/mL (0-125); Osmolality Calculated 298 mOsm/kg (285-295); Sodium 140 mmol/L (136-145); Thyroid Stimulating Hormone 1.95 uIU/mL (0.36-3.74); Total Protein 7.1 g/dL (6.4-8.2)
[2024-11-28 13:50] LABS: Troponin I 78.9 ng/L (0.00-60.4)
[2024-11-28] MEDS: OSELTAMIVIR PHOSPHATE 75 MG CAPSULE PO ×2 (14:38→21:57)
[2024-11-28] MEDS: AZITHROMYCIN 500 MG/NS 250 ML 500 MG/250 ML BAG 250 MG IVPB (14:50)
[2024-11-28 15:53] LABS: Troponin I 85.5 ng/L (0.00-60.4)
--- NOTE | 2024-11-28 17:37 | ADMGEN ---
This patient, Ricky Lovell, was admitted to 2nd Floor Room 210-1. Patient/family oriented to hospital policies and general routines including ID bracelet, bed and alarms, visiting hours, pain management, procedures, bathroom and other care routines, personal items, smoking policy, room service/diet, and visiting hours. Information on how to activate the Rapid Response Team has been discussed. Patient/Family are encouraged to report perceived risks to care and to ask questions if they do not understand what they are told or what they should do.
[2024-11-28 20:11] LABS: Troponin I 66.4 ng/L (0.00-60.4)
[2024-11-28 20:12] LABS: Thyroid Stimulating Hormone 0.77 uIU/mL (0.36-3.74)
[2024-11-28 20:34] LABS: Glucose Point of Care 138 mg/dl (65-105)
[2024-11-28] MEDS: guaiFENesin 12 HR 600 MG TABCR PO (20:34)
[2024-11-28] MEDS: ACETAMINOPHEN 325 MG TABLET 650 MG PO (20:37)
--- NOTE | 2024-11-28 22:58 | PC.NURSE ---
Zakia Roach NP, notified of patient's status. No new orders at this time.
[2024-11-29] VITALS (19 sets, daily range): BP systolic 118–206; BP diastolic 72–114; PULSE 68–96; RESP 16–24; TEMP 35.7–36.6; O2SAT 87–98
[2024-11-29] MEDS: IPRATROPIUM 0.5 MG/ALBUTEROL SULFATE 2.5 MG AMPUL.NEB 3 ML INHALATION ×4 (00:35→16:32)
--- NOTE | 2024-11-29 00:35 | PC.NURSE ---
Pt sleeping upon rounding and is hard to awaken. He awakens to verbal and touch and when awakened pt has blank stare and is unable to answer questions appropriately. He has nonsensicle speech and slightly garbled. He cannot answer place or year. Noted BP is 206/114 in Lt arm and 201/125 in Rt arm. Pt will follow simple commands when asked and is currently on 7L high flow NC w/ spo2 maintaining at 96%.
--- NOTE | 2024-11-29 00:56 | PC.NURSE ---
C all placed to ALEXIS Pike and message left to give her pt update status during rounding.
[2024-11-29 01:20] LABS: Base Excess ABG 0.6 mmol/L (0-2); HCO3 ABG 31.6 mmol/L (23-29); Oxygen Saturation ABG 89.6 % (95-97); Oxyhemoglobin 88.2 % (94-100); PO2 ABG 66.3 mmHg (80-90); pH ABG 7.21 (7.35-7.45)
[2024-11-29 01:23] LABS: Modified Allen's Test Pass; PCO2 ABG 81.5 mmHg (35-45); Site Drawn LEFT RADIAL
[2024-11-29 01:24] LABS: Device HIGH FLOW NASAL CANN
--- NOTE | 2024-11-29 01:25 | PC.NURSE ---
Zakia Roach NP notified of pt's altered mental status; New orders received and noted for CT of the head and ABG.
--- NOTE | 2024-11-29 01:40 | PC.NURSE ---
Pt back from CT scan, neuro status improving, pt still noted SOB w/ exertion SPO2 86% on high flow w/ exertion. Pt assisted back to bed, Bp starting to improve and noted 168/96. Pt allowed to rest and SPO2 will come back up to 94%. Orders received from AELXIS Pike per milk driverZO [place] to place pt on bipap.
--- NOTE | 2024-11-29 01:49 | PC.NURSE ---
Pt neuro status is improving, he is able to answer simple questions at this time and follow commands, no noted speech difficulty and A&O x2-3. Continuing to monitor and await for resp to start bipap.
--- NOTE | 2024-11-29 02:24 | PC.NURSE ---
Pt has bipap in place and resting comfortably, VSS at this time w/ SPO2 at 94%. Continuing to monitor. Pts notified per his request and updates given.
--- NOTE | 2024-11-29 02:27 | PCRCNOTE ---
I spoke to Dr. Treviño about patients ABG and changed bipap setting per [place]. RN is also aware of changes.
[2024-11-29 05:58] LABS: Hematocrit 52.3 % (40.0-54.0); Mean Corpuscular HGB Conc 28.7 g/dL (32-36); Mean Corpuscular Volume 94.1 fL (78.0-102.0); Mean Platelet Volume 9.6 fl (8.7-11.0); Platelet Count Result 285 K/mm3 (150-420); Red Blood Count 5.56 M/mm3 (4.70-6.10); Red Cell Distribution Width 17.2 % (11.6-14.4); White Blood Count 7.7 K/mm3 (4.8-10.8)
[2024-11-29 06:14] LABS: Alanine Aminotransferase 67 U/L (16-63); Albumin Level 2.9 g/dL (3.4-5.0); Alkaline Phosphatase 151 U/L (46-116); Anion Gap -2 mmol/L (4-12); Aspartate Amino Transferase 25 U/L (15-37); Blood Urea Nitrogen 27 mg/dL (7-18); Calcium 8.2 mg/dL (8.5-10.1); Carbon Dioxide 42 mmol/L (21-32); Chloride 101 mmol/L (98-108); Estimated CRCL calculation 71 ml/min; Estimated Glomerular Filt Rate > 60; Glucose 147 mg/dL (70-99); Magnesium 2.4 mg/dL (1.8-2.4); Osmolality Calculated 300 mOsm/kg (285-295); Potassium 5.1 mmol/L (3.5-5.1); Sodium 141 mmol/L (136-145); Total Protein 6.8 g/dL (6.4-8.2)
[2024-11-29 06:22] LABS: Total Cells Counted 100
[2024-11-29 06:23] LABS: Band Neutrophils Percent 2 % (0-6); Basophils Percent Manual 0 % (0-1); Eosinophils Percent Manual 0 % (1-6); Lymphocytes Absolute Manual 0.46 K/mm3 (1.1-4.5); Lymphocytes Percent Manual 6 % (18-44); Metamyelocytes Percent 1 %; Monocytes Absolute Manual 0.15 K/mm3 (0.1-0.90); Monocytes Percent Manual 2 % (3-9); Neutrophils Percent Manual 89 % (46-73); Platelet Estimate Adequate (Adequate)
[2024-11-29 06:38] LABS: Base Excess ABG 7.7 mmol/L (0-2); HCO3 ABG 39.3 mmol/L (23-29); Oxyhemoglobin 91.7 % (94-100); PO2 ABG 73.7 mmHg (80-90); pH ABG 7.25 (7.35-7.45)
[2024-11-29 06:40] LABS: Modified Allen's Test Pass; PCO2 ABG 91.4 mmHg (35-45); Site Drawn RIGHT RADIAL
[2024-11-29 06:41] LABS: Device BIPAP; Expiratory Pressure 7 cmH2O; Inspiratory Pressure 14 cmH2O
--- NOTE | 2024-11-29 06:47 | PC.NURSE ---
Pt is alert, watching TV and wanting curtain opened, he denies any pain, VS rechecked and BP noted 135/76. D/T new lab results Aliyah Cooper called Air Conditioning Manager Glendy Roach w/ results and wanted Dr Treviño ERP notified to eval pt. Dr Treviño coming up to see pt.
--- NOTE | 2024-11-29 06:50 | PC.NURSE ---
Dr. Treviño here to see patient; Adjustments were made to the Bipap by Dr. Treviño; New settings are tidal volume-300; 16/8; FIO2-25% and a rate of 24. He also requested an arterial blood gas in one hour (0800)
--- NOTE | 2024-11-29 07:02 | PC.NURSE ---
Dr Treviño up to evaluate pt. and changes made to bipap settings. Pt is alert and answers questions appropriately. New setting changed to 16/8, FiO2 25%, rate of 24 and to maintain TV over 300. ABG's need to be reordered in 1 hr around 0800. optical effects line up person Holly informed.
[2024-11-29 08:19] LABS: Base Excess ABG 10.2 mmol/L (0-2); HCO3 ABG 41.2 mmol/L (23-29); Oxygen Saturation ABG 82.4 % (95-97); Oxyhemoglobin 81.1 % (94-100); PO2 ABG 48.6 mmHg (80-90); pH ABG 7.29 (7.35-7.45)
[2024-11-29 08:26] LABS: Device BIPAP; Expiratory Pressure 8 cmH2O; Inspiratory Pressure 16 cmH2O; Modified Allen's Test Pass; PCO2 ABG 88.1 mmHg (35-45); Site Drawn RIGHT RADIAL
[2024-11-29] MEDS: AZITHROMYCIN 250 MG TABLET 500 MG PO (08:43)
[2024-11-29] MEDS: ENOXAPARIN 40 MG/0.4 ML SYRINGE SUB-Q (08:43)
[2024-11-29] MEDS: OSELTAMIVIR PHOSPHATE 75 MG CAPSULE PO ×2 (08:44→20:24)
[2024-11-29] MEDS: lisinopriL 20 MG TABLET PO (08:44)
[2024-11-29] MEDS: guaiFENesin 12 HR 600 MG TABCR PO ×2 (08:44→20:24)
[2024-11-29 11:18] LABS: Base Excess ABG 8.8 mmol/L (0-2); HCO3 ABG 38.2 mmol/L (23-29); Oxygen Saturation ABG 92.6 % (95-97); Oxyhemoglobin 91.4 % (94-100); PO2 ABG 67.4 mmHg (80-90); pH ABG 7.32 (7.35-7.45)
[2024-11-29 11:23] LABS: PCO2 ABG 75.7 mmHg (35-45)
[2024-11-29 11:24] LABS: Modified Allen's Test Pass; Site Drawn LEFT RADIAL
[2024-11-29 11:26] LABS: Device BIPAP
[2024-11-29 11:28] LABS: Expiratory Pressure 6 cmH2O; Inspiratory Pressure 16 cmH2O
--- NOTE | 2024-11-29 11:36 | PC.NURSE ---
Discussed ABG with provider, keep bipap settings at this time, no change, will evaluate and order another ABG for later today.
[2024-11-29 15:30] LABS: Base Excess ABG 9.6 mmol/L (0-2); HCO3 ABG 37.8 mmol/L (23-29); Oxygen Saturation ABG 93.5 % (95-97); Oxyhemoglobin 92.3 % (94-100); PCO2 ABG 66.5 mmHg (35-45); PO2 ABG 66.6 mmHg (80-90); pH ABG 7.37 (7.35-7.45)
[2024-11-29 15:33] LABS: Device BIPAP; Modified Allen's Test Pass; Site Drawn LEFT RADIAL
[2024-11-29 15:34] LABS: Expiratory Pressure 6 cmH2O; Inspiratory Pressure 16 cmH2O
[2024-11-29] MEDS: methylPREDNISolone SOD SUCC 125 MG VIAL 60 MG IV PUSH ×2 (17:16→23:16)
--- NOTE | 2024-11-29 17:32 | PC.NURSE ---
Patient changed to inpatient status.
--- NOTE | 2024-11-29 17:57 | P.HP_ITS ---
H&P: HPI History of Present Illness Date/Time: 11/29/24 17:57 Chief Complaint: shortness of breath/dyspnea Narrative: This is a 64 year old male with a significant past medical history with kyphoscoliosis, rectal cancer status post resection with ostomy, and adult onset asthma who presented with a 2 week history of shortness of breath and dyspnea. Work up in the hospital included a chest x-ray which shown elevation of the right hemidiaphragm with decreased right lung volume and focal opacity at the medial right lower lung zone which could represent atelectasis although differential includes pneumonia. Initial labs shown a normal WBC of 8.3, bicarb 40, BG 114-138, total bili 1.7, ALT 75, alkaline phosphatase 156, Troponin 85.8>66.4, BNP 4052, TSH 1.95. Respiratory panel was positive for Influenza A. Blood cultures obtained and pending. EKG shown NSR with atrial premature complex, rate of 82, QTc 444. Patient was started on Rocephin, Azithromycin, Tamiflu, and given a dose of Solumedrol 125mg while in the ER. . Review of Systems Review of Systems: All systems reviewed & are unremarkable except as noted in HPI and below PMFSH Past Medical History Medical History (Updated 11/29/24 @ 18:22 by Glendy Roach APRN) Kyphoscoliosis Asthma Family History Family History Father Family history of cardiovascular disease Social History Social History Smoking status: Never smoker Smoking end date: 10/10/86 Alcohol intake: current Drinks per week: 1 Substance use: current Substance use type: marijuana Last use: 2 weeks ago Do You Feel Safe in your Home?: Yes Lack of Transportation: No Lack of Food: Never True Current Housing: I Have Housing Concerned About Future Housing: No Difficulty Paying Gas/Electric Bills: No Difficulty Paying for Meds: No Currently Unemployed: No Education: Trade/Vocational Certificate Difficulty w/ Childcare or Family Care: No Spiritual care concerns: No Meds Home Medications and Allergies Home Medications ?Medication ?Instructions ?Recorded ?Confirmed ?Type lisinopril 20 mg tablet 20 mg PO DAILY 11/29/24 11/29/24 History Allergies Allergy/AdvReac Type Severity Reaction Status Date / Time Sulfa (Sulfonamide Allergy Intermediate Rash Verified 11/28/24 13:08 Antibiotics) Vital Signs Vital Signs - 24 hr 11/28/24 18:34 11/28/24 18:54 11/28/24 19:00 Temperature 97.0 F L Pulse Rate 92 92 92 Respiratory Rate 20 22 H Blood Pressure 136/82 Pulse Oximetry 90 88 L Oxygen Delivery Nasal Cannula Nasal Cannula Oxygen Flow Rate 5 5 Fraction of Inspired Oxygen 11/28/24 19:17 11/28/24 20:00 11/28/24 20:00 Temperature 97.3 F L Pulse Rate 100 98 77 Respiratory Rate 20 16 20 Blood Pressure 173/99 H Pulse Oximetry 89 L 96 97 Oxygen Delivery High Flow Nasal Cannula High Flow Nasal Cannula High Flow Nasal Cannula Oxygen Flow Rate 7 7 7 Fraction of Inspired Oxygen 11/29/24 00:35 11/29/24 00:40 11/29/24 01:14 Temperature 97.6 F Pulse Rate 96 92 Respiratory Rate 20 20 20 Blood Pressure 206/114 H Pulse Oximetry 96 96 96 Oxygen Delivery High Flow Nasal Cannula Oxygen Flow Rate 7 7 7 Fraction of Inspired Oxygen 11/29/24 02:00 11/29/24 04:00 11/29/24 04:00 Temperature 96.3 F L Pulse Rate 77 80 82 Respiratory Rate 16 16 Blood Pressure 177/112 H Pulse Oximetry 92 97 Oxygen Delivery BiPAP BiPAP Oxygen Flow Rate Fraction of Inspired Oxygen 50 11/29/24 05:45 11/29/24 05:50 11/29/24 06:09 Temperature Pulse Rate 79 79 80 Respiratory Rate 18 18 18 Blood Pressure Pulse Oximetry 94 94 98 Oxygen Delivery BiPAP Oxygen Flow Rate Fraction of Inspired Oxygen 11/29/24 06:45 11/29/24 07:27 11/29/24 08:00 Temperature Pulse Rate 84 80 Respiratory Rate 18 Blood Pressure 135/76 Pulse Oximetry 97 87 L Oxygen Delivery BiPAP BiPAP Oxygen Flow Rate Fraction of Inspired Oxygen 50 11/29/24 08:00 11/29/24 08:59 11/29/24 10:13 Temperature 97.8 F Pulse Rate 80 Respiratory Rate 22 H 24 H Blood Pressure 132/76 Pulse Oximetry 88 L 94 Oxygen Delivery BiPAP BiPAP BiPAP Oxygen Flow Rate Fraction of Inspired Oxygen 11/29/24 11:49 11/29/24 12:00 11/29/24 12:00 Temperature 97.6 F Pulse Rate 77 68 72 Respiratory Rate 24 H 18 Blood Pressure 118/74 Pulse Oximetry 91 92 Oxygen Delivery BiPAP Oxygen Flow Rate Fraction of Inspired Oxygen 11/29/24 12:03 11/29/24 14:30 11/29/24 16:35 Temperature Pulse Rate 82 78 82 Respiratory Rate 24 H 24 H 24 H Blood Pressure Pulse Oximetry 93 93 93 Oxygen Delivery BiPAP BiPAP Oxygen Flow Rate Fraction of Inspired Oxygen Exam Narrative: General: In no acute distress, well nourished Head: atraumatic, no encephalopathy Eyes: PERRLA, sclera clear ENT: moist mucous membranes, nasal passages clear Neck: supple, no JVD, no adenopathy, trachea midline Cardiac: Normal S1 and S2. No murmur, gallops or friction rubs, peripheral pulses intact. Respiratory: Wheezing bilaterally, no adventitious lung sounds, currently on continuous bipap Gastrointestinal: soft, non-distended, non-tender, normoactive bowel sounds. : voiding without difficulty. Extremities: moves all extremities well, no edema Skin: clean, dry, intact. No wounds or lesions. Neuro: Alert and oriented x4, cranial nerves intact, no neuro deficits. Psych: normal mood, normal affect, interactive H&P: Results Labs Labs: Short CBC 11/29/24 Range/Units 05:47 WBC 7.7 (4.8-10.8) K/mm3 Hgb 15.0 (14.0-18.0) g/dL Hct 52.3 (40.0-54.0) % Plt Count 285 (150-420) K/mm3 [facility] 11/29/24 05:47 Sodium 141 Potassium 5.1 Chloride 101 Carbon Dioxide 42 H BUN 27 H Creatinine 1.02 Glucose 147 H Calcium 8.2 L Cardiac Enzymes 11/28/24 Range/Units 19:39 Troponin I 66.4 H* (0.00-60.4) ng/L Liver Function 11/29/24 Range/Units 05:47 Total Bilirubin 1.0 (0.00-1.00) mg/dL AST 25 (15-37) U/L ALT 67 H (16-63) U/L Alkaline Phosphatase 151 H (46-116) U/L Albumin 2.9 L (3.4-5.0) g/dL Imaging Chest x-ray: Radiologist's impression: EXAMINATION: XR chest 1V portable DATE: 11/28/2024 13:24 INDICATION: Shortness of breath TECHNIQUE: frontal view of the chest was obtained. COMPARISON: Chest radiograph dated 12/02/2017 FINDINGS: Small lung volume with increasing elevation the right hemidiaphragm. Airspace opacity medial right lower lung zone which could represent atelectasis or pneumonia. Linear opacity left lung base consistent with discoid atelectasis. No pulmonary edema, pleural effusion or pneumothorax. Heart size is within normal limits for AP technique. Moderate cervical thoracic dextroscoliosis and thoracal lumbar levoscoliosis. Again seen is a fractured Sampson dawit along the right side of the thoracolumbar spine with proximal laminar hook. IMPRESSION: 1. Elevation the right hemidiaphragm with decreased right lung volume and focal opacity at the medial right lower lung zone which could represent associated atelectasis although differential includes pneumonia. Reviewed, dictated and finalized at location A. OR UI WEB DEVELOPER CT scan - head: Radiologist's impression: Non-contrast Head CT History: Confusion Technique: Axial non-contrast imaging of the brain was performed. Dose reduction technique was used on this scan by utilizing automated exposure control and iterative reconstruction technique. The dose-length product (DLP) was 681.00 mGy-cm. Findings: There is no evidence of intracranial hemorrhage, mass lesion, or acute infarct. Brain parenchyma appears normal. The ventricles and subarachnoid spaces are normal in size. The calvarium appears normal. The visualized paranasal sinuses and mastoid air cells are clear. Impression: No significant abnormality seen. Reviewed, dictated and finalized at location M. OR UI WEB DEVELOPER Assessment and Plan Assessment and plan (1) Respiratory failure with hypoxia and hypercapnia: Qualifiers: Chronicity: acute Qualified Code(s): J96.01 - Acute respiratory failure with hypoxia; J96.02 - Acute respiratory failure with hypercapnia Code(s): J96.91 - Respiratory failure, unspecified with hypoxia; J96.92 - Respiratory failure, unspecified with hypercapnia Status: Acute Assessment and Plan: * Overnight patient became altered and order was placed for ABG which shown a pH 7.21, pCO2 81.5, pO2 66.3, HCO3 31.6. He was started on continuous Bipap. Repeat ABG this morning shown worsening pCO2 and adjustments were made * Asthma exacerbation complicated by Influenza A and Kyphoscoliosis. * continue duonebs * Will check another ABG at 8 pm tonight * Transfer to [place] when bed IMU bed is available. * Continue solu-medrol 60 mg q6h considering worsening gas exchange * CXR- shown elevation of the right hemidiaphragm with decreased right lung volume and focal opacity at the medial right lower lung zone which could represent associated atelectasis although differential includes pneumonia * Respiratory panel positive for Influenza A * Blood cultures obtained and pending * Continue Rocephin, azithromycin, and Tamiflu * Echo ordered * Continue Guaifenesin * continue incentive spirometry (2) Pneumonia: Code(s): J18.9 - Pneumonia, unspecified organism Status: Acute Assessment and Plan: * see above (3) Asthma exacerbation: Qualifiers: Asthma persistence: persistent Asthma severity: moderate Qualified Code(s): J45.41 - Moderate persistent asthma with (acute) exacerbation Code(s): J45.901 - Unspecified asthma with (acute) exacerbation Status: Acute Assessment and Plan: * see above (4) Kyphoscoliosis: Code(s): M41.9 - Scoliosis, unspecified Status: Acute Assessment and Plan: * see above Quality VTE Prophylaxis VTE prophylaxis: pharmacologic ordered Hospitalist [facility] Advance Care Plan I have confirmed that the patient's Advanced Care Plan is present, code status is documented, or surrogate decision maker is listed in patient medical record.: Yes Medication Reconciliation I have utilized all available resources to obtain, update and review the patients current medications (includes all prescriptions, OTC, herbals, cannabis, and nutritional supplements).: Yes
--- NOTE | 2024-11-29 19:06 | PC.NURSE ---
1200 talked with toy painter. claims we are leaving setting on bi pap 16/6 and FIO2 40% and we will repeat abg at 1500. patient sleeping at this time. sr on tele. spo2 93%. at bedside. patient remains alert and orient. 1400 dozes in and out this afternoon. spo2 92-96%. aware of not aloud to to eat at this time. 1500 lab draws a new abg. 1600 toy painter aware and wants to change bipap [id number] andFIO2 50%. he can now have supper and only take bipap off for a short break. 1700 sits on side of bed for supper. o2 @ 6 lpm per nc for supper. tolerated well. denies any sob increased. sr on tele. spo2 92% at this time. 1750 done with supper bipap back on. denies any up sob. lungs remain diminished. 98% spo2. 1830 rests quietly.
[2024-11-29] MEDS: ACETAMINOPHEN 325 MG TABLET 650 MG PO (20:24)
[2024-11-29 21:01] LABS: Base Excess ABG 9.7 mmol/L (0-2); HCO3 ABG 39.8 mmol/L (23-29); Oxygen Saturation ABG 96.2 % (95-97); Oxyhemoglobin 95.4 % (94-100); PO2 ABG 92.7 mmHg (80-90); pH ABG 7.31 (7.35-7.45)
[2024-11-29 21:03] LABS: PCO2 ABG 81.2 mmHg (35-45); Site Drawn LEFT RADIAL
[2024-11-29 21:04] LABS: Device BIPAP; Modified Allen's Test Pass
--- NOTE | 2024-11-29 21:32 | PC.NURSE ---
Zakia Roach NP, notified of current ABG results. Orders to make sure mask is on tight and he has very limited time to sip fluids.
[2024-11-29 22:13] LABS: Expiratory Pressure 6 cmH2O; Inspiratory Pressure 16 cmH2O
[2024-11-30] VITALS (11 sets, daily range): BP systolic 111–143; BP diastolic 74–89; PULSE 59–90; RESP 20–24; TEMP 36.1–36.6; O2SAT 91–97
[2024-11-30] MEDS: methylPREDNISolone SOD SUCC 125 MG VIAL 60 MG IV PUSH ×2 (05:05→13:32)
[2024-11-30] MEDS: IPRATROPIUM 0.5 MG/ALBUTEROL SULFATE 2.5 MG AMPUL.NEB 3 ML INHALATION ×2 (05:34→13:15)
[2024-11-30 06:58] LABS: Base Excess ABG 8.4 mmol/L (0-2); Device BIPAP; HCO3 ABG 35.2 mmol/L (23-29); Modified Allen's Test Pass; Oxygen Saturation ABG 95.4 % (95-97); Oxyhemoglobin 94.4 % (94-100); PCO2 ABG 56.9 mmHg (35-45); PO2 ABG 75.9 mmHg (80-90); Site Drawn LEFT RADIAL; pH ABG 7.41 (7.35-7.45)
[2024-11-30 06:59] LABS: Basophils Absolute Auto 0.01 K/mm3 (0.00-0.10); Basophils Percent Auto 0.1 % (0.0-1.0); Eosinophils Absolute Auto 0.08 K/mm3 (0.02-0.50); Eosinophils Percent Auto 0.8 % (1.0-6.0); Hematocrit 49.3 % (40.0-54.0); Hemoglobin 14.4 g/dL (14.0-18.0); Immature Granulocyte Absolute 0.07 K/mm3 (0.00-0.00); Immature Granulocyte Percent A 0.7 % (0.0-0.0); Lymphocytes Absolute Auto 0.13 K/mm3 (1.10-4.50); Lymphocytes Percent Auto 1.3 % (18.0-42.0); Mean Corpuscular HGB Conc 29.2 g/dL (32-36); Mean Corpuscular Hemoglobin 26.9 pg (27.0-31.0); Mean Platelet Volume 9.5 fl (8.7-11.0); Neutrophils Absolute Auto 9.69 K/mm3 (1.70-7.20); Neutrophils Percent Auto 96.1 % (50.0-70.0); Nucleated Red Blood Cells Absolute Auto 0.05 K/mm3 (0.00-0.00); Nucleated Red Blood Cells Perc 0.5 % (0-0.0); Platelet Count Result 279 K/mm3 (150-420); Red Blood Count 5.36 M/mm3 (4.70-6.10); White Blood Count 10.1 K/mm3 (4.8-10.8)
[2024-11-30 07:00] LABS: Inspiratory Pressure 16 cmH2O
[2024-11-30 07:01] LABS: Expiratory Pressure 6 cmH2O
[2024-11-30 07:15] LABS: Alanine Aminotransferase 48 U/L (16-63); Albumin Level 2.8 g/dL (3.4-5.0); Alkaline Phosphatase 121 U/L (46-116); Anion Gap -11 mmol/L (4-12); Aspartate Amino Transferase 14 U/L (15-37); Blood Urea Nitrogen 32 mg/dL (7-18); Calcium 8.1 mg/dL (8.5-10.1); Carbon Dioxide 41 mmol/L (21-32); Chloride 91 mmol/L (98-108); Estimated CRCL calculation 74 ml/min; Estimated Glomerular Filt Rate > 60; Glucose 147 mg/dL (70-99); Magnesium 2.6 mg/dL (1.8-2.4); Osmolality Calculated 261 mOsm/kg (285-295); Potassium 4.5 mmol/L (3.5-5.1); Sodium 121 mmol/L (136-145); Total Protein 6.3 g/dL (6.4-8.2)
[2024-11-30] MEDS: ENOXAPARIN 40 MG/0.4 ML SYRINGE SUB-Q (10:13)
[2024-11-30] MEDS: lisinopriL 20 MG TABLET PO (10:14)
[2024-11-30] MEDS: guaiFENesin 12 HR 600 MG TABCR PO (10:14)
[2024-11-30] MEDS: OSELTAMIVIR PHOSPHATE 75 MG CAPSULE PO (10:14)
[2024-11-30] MEDS: AZITHROMYCIN 250 MG TABLET 500 MG PO (10:14)
--- NOTE | 2024-11-30 14:25 | P.TS_ITS ---
Transfer Discharge Sum: Prov Provider Date of admission: 11/29/24 16:28 Primary care physician: Celi Falk, GLUER Admitting clinician: Fredrick Bundy MD Attending physician on discharge: Jacoby Bundy Discharging clinician: Glendy Roach Anticipated date of transfer: 11/30/24 [facility]: Admitting Diagnosis Discharge Date 11/30/24 Admitting Diagnosis respiratory failure with hypoxia and hypercapnia pneumonia asthma influenza a kyphoscoliosis DS: Discharge Diagnosis Discharge Diagnosis (1) Respiratory failure with hypoxia and hypercapnia: Qualifiers: Chronicity: acute Qualified Code(s): J96.01 - Acute respiratory failure with hypoxia; J96.02 - Acute respiratory failure with hypercapnia Code(s): J96.91 - Respiratory failure, unspecified with hypoxia; J96.92 - Respiratory failure, unspecified with hypercapnia Status: Acute Assessment and Plan: * Overnight patient became altered and order was placed for ABG which shown a pH 7.21, pCO2 81.5, pO2 66.3, HCO3 31.6. He was started on continuous Bipap. Repeat ABG this morning shown worsening pCO2 and adjustments were made * Asthma exacerbation complicated by Influenza A and Kyphoscoliosis. * continue duonebs * Will check another ABG at 8 pm tonight * Transfer to [place] when bed IMU bed is available. * Continue solu-medrol 60 mg q6h considering worsening gas exchange * CXR- shown elevation of the right hemidiaphragm with decreased right lung volume and focal opacity at the medial right lower lung zone which could represent associated atelectasis although differential includes pneumonia * Respiratory panel positive for Influenza A * Blood cultures obtained and pending * Continue Rocephin, azithromycin, and Tamiflu * Echo ordered * Continue Guaifenesin * continue incentive spirometry (2) Pneumonia: Code(s): J18.9 - Pneumonia, unspecified organism Status: Acute Assessment and Plan: * see above (3) Asthma exacerbation: Qualifiers: Asthma persistence: persistent Asthma severity: moderate Qualified Code(s): J45.41 - Moderate persistent asthma with (acute) exacerbation Code(s): J45.901 - Unspecified asthma with (acute) exacerbation Status: Acute Assessment and Plan: * see above (4) Kyphoscoliosis: Code(s): M41.9 - Scoliosis, unspecified Status: Acute Assessment and Plan: * see above Transfer Discharge Sum: Med Medications Active and Home Medications: Home Medications lisinopril 20 mg tablet 20 mg PO DAILY 11/29/24 [History Confirmed 11/29/24] Active Medications Acetaminophen (Acetaminophen 325 Mg Tablet) 650 mg PO Q4H PRN PRN Reason: Mild Pain (1-3) or Fever Last Admin: 11/29/24 20:24 Dose: 650 mg Albuterol/Ipratropium (Ipratropium 0.5 Mg/Albuterol Sulfate 2.5 Mg Ampul.Neb 3 Ml) 3 ml INHALATION Q6HRT [facility] Last Admin: 11/30/24 13:15 Dose: 3 ml Azithromycin (Azithromycin 250 Mg Tablet) 500 mg PO DAILY [facility] Last Admin: 11/30/24 10:14 Dose: 500 mg Enoxaparin Sodium (Enoxaparin 40 Mg/0.4 Ml Syringe) 40 mg SUB-Q DAILY [facility] Last Admin: 11/30/24 10:13 Dose: 40 mg Guaifenesin (Guaifenesin 12 Hr 600 Mg Tabcr) 600 mg PO Q12HR [facility] Last Admin: 11/30/24 10:14 Dose: 600 mg Hydralazine HCl (Hydralazine Hcl 20 Mg/Ml Vial) 10 mg IV PUSH Q8H PRN PRN Reason: Blood Pressure - High Ceftriaxone Sodium (Rocephin 1 Gm/Ns 50 Ml) 1 gm in 50 mls @ 100 mls/hr IVPB Q24H [facility] Last Admin: 11/30/24 13:33 Dose: 100 mls/hr Lisinopril (Lisinopril 20 Mg Tablet) 20 mg PO DAILY [facility] Last Admin: 11/30/24 10:14 Dose: 20 mg Methylprednisolone Sodium Succinate (Methylprednisolone Sod Succ 125 Mg Vial) 60 mg IV PUSH Q6HR [facility] Last Admin: 11/30/24 13:32 Dose: 60 mg Ondansetron HCl (Ondansetron Inj 4 Mg/2 Ml Vial) 4 mg IV PUSH Q6H PRN PRN Reason: Nausea And Vomiting Oseltamivir Phosphate (Oseltamivir Phosphate 75 Mg Capsule) 75 mg PO Q12HR [facility] Stop: 12/03/24 21:59 Last Admin: 11/30/24 10:14 Dose: 75 mg Perflutren Lipid Microsphere (Perflutren Lipid Microspheres 1.5 Ml Vial Diluted To 10 Ml Total Volume) 0 ml IV PUSH ONCE PRN; Protocol PRN Reason: adequate visualization Stop: 12/01/24 18:52 Transfer Discharge Sum: Hosp Hospital Course Hospital course: This is a 64 year old male with a significant past medical history with kyphoscoliosis, rectal cancer status post resection with ostomy, and adult onset asthma who presented with a 2 week history of shortness of breath and dyspnea. Work up in the hospital included a chest x-ray which shown elevation of the right hemidiaphragm with decreased right lung volume and focal opacity at the medial right lower lung zone which could represent atelectasis although differential includes pneumonia. Initial labs shown a normal WBC of 8.3, bicarb 40, BG 114-138, total bili 1.7, ALT 75, alkaline phosphatase 156, Troponin 85.8>66.4, BNP 4052, TSH 1.95. Respiratory panel was positive for Influenza A. Blood cultures obtained and pending. EKG shown NSR with atrial premature complex, rate of 82, QTc 444. Patient was started on Rocephin, Azithromycin, Tamiflu, and given a dose of Solumedrol 125mg while in the ER. Patient was on continuous BiPAP overnight with improvement in his pH and CO2. His ABG this morning showed a pH of 7.41, pCO2 56.9, PO2 75.9, bicarb 35.2. Patient was started on Solu-Medrol 60 mg q.6 hours yesterday Considering his history of asthma. The use of steroids was discussed with Dr. Bundy and he agrees with its use in this situation. Patient states that he is feeling much better today. Labs today showed sodium of 121, chloride 91. This is likely due to him not being able to eat and drink on continuous BiPAP. He was switched to 2 hours on and 2 hours off of BiPAP therapy today considering we now are back to his baseline. His CO2 levels at baseline are 56.9-66.5. we did initiate transfer on him yesterday however there were new beds at [place] or at [facility]. Today we are able to get him transferred to [facility] and he will be admitted to IMU. He will need a pulmonology consult and an echocardiogram. He is stable for transfer at this time. Vital signs are stable, he is afebrile, he is currently on 4 L nasal cannula when off of the BiPAP. final diagnosis: acute respiratory failure with hypoxia and hypercapnia, pneumonia, influenza A, kyphoscoliosis condition: serious Time Spent with Patient Time attestation: Total time spent providing and/or coordinating transfer services: Exam Narrative: General: In no acute distress, well nourished Cardiac: Normal S1 and S2. No murmur, gallops or friction rubs, peripheral pulses intact. Respiratory: Wheezing right > left, no adventitious lung sounds, currently on BiPAP Gastrointestinal: soft, non-distended, non-tender, normoactive bowel sounds. : voiding without difficulty. Extremities: moves all extremities well, no edema Skin: bridge of nose red, blanchable-- Band-Aid in place Neuro: Alert and oriented x4 DS: Data Data Completed and Pending Completed studies during hospitalization: head CT chest x-ray Pending studies at discharge: blood cultures Labs on day of discharge: Labs from last 24 hours 11/30/24 11/30/24 11/29/24 06:52 06:46 20:58 WBC 10.1 RBC 5.36 Hgb 14.4 Hct 49.3 MCV 92.0 MCH 26.9 L MCHC 29.2 L RDW 17.0 H Plt Count 279 MPV 9.5 Immature Gran % (Auto) 0.7 H Neut % (Auto) 96.1 H Lymph % (Auto) 1.3 L [place] % (Auto) 1.0 L Eos % (Auto) 0.8 L Baso % (Auto) 0.1 Lymph # (Auto) 0.13 L [place] # (Auto) 0.10 Eos # (Auto) 0.08 Baso # (Auto) 0.01 Abs Immat Gran (auto) 0.07 H Absolute Neuts (auto) 9.69 H Absolute Nucleated RBC 0.05 H Nucleated RBC % 0.5 H Puncture Site Left radial Left radial ABG pH 7.41 7.31 L ABG pCO2 56.9 H 81.2 H* ABG pO2 75.9 L 92.7 H ABG HCO3 35.2 H 39.8 H ABG O2 Saturation 95.4 96.2 ABG Base Excess 8.4 H 9.7 H Oxyhemoglobin 94.4 95.4 O2 Delivery Device Bipap Bipap O2 Liters/Min 40.0 40.0 Expiratory Pressure 6 6 Inspiratory Pressure 16 16 Sodium 121 L Potassium 4.5 Chloride 91 L Carbon Dioxide 41 H Anion Gap -11 L BUN 32 H Creatinine 0.98 Estim Creat Clear Calc 74 Estimated GFR > 60 Glucose 147 H Calculated Osmolality 261 L Calcium 8.1 L Magnesium 2.6 H Total Bilirubin 1.0 AST 14 L ALT 48 Alkaline Phosphatase 121 H Total Protein 6.3 L Albumin 2.8 L 11/29/24 11/29/24 15:26 11:13 WBC RBC Hgb Hct MCV MCH MCHC RDW Plt Count MPV Immature Gran % (Auto) Neut % (Auto) Lymph % (Auto) [place] % (Auto) Eos % (Auto) Baso % (Auto) Lymph # (Auto) [place] # (Auto) Eos # (Auto) Baso # (Auto) Abs Immat Gran (auto) Absolute Neuts (auto) Absolute Nucleated RBC Nucleated RBC % Puncture Site Left radial ABG pH 7.37 ABG pCO2 66.5 H ABG pO2 66.6 L ABG HCO3 37.8 H ABG O2 Saturation 93.5 L ABG Base Excess 9.6 H Oxyhemoglobin 92.3 L O2 Delivery Device Bipap O2 Liters/Min 40.0 40.0 Expiratory Pressure 6 Inspiratory Pressure 16 Sodium Potassium Chloride Carbon Dioxide Anion Gap BUN Creatinine Estim Creat Clear Calc Estimated GFR Glucose Calculated Osmolality Calcium Magnesium Total Bilirubin AST ALT Alkaline Phosphatase Total Protein Albumin Preliminary micro results at discharge 11/28/24 17:17 Blood Culture - Preliminary Blood 11/28/24 17:13 Blood Culture - Preliminary Blood Procedures/Treatments: none
--- NOTE | 2024-11-30 20:02 | PC.NURSE ---
0840 bipap off per flare stitcher and o2 per nc @ 6l. 1000 bipap returned at this time per flare stitcher. wants it off for 2 hr spans. tolerated well. denies any up sob. spo2 remains 92-94%. bipap setting are 16/6 and FIO2 40%. 1200 dozed off and on this am. her. no c/o. O2 changed over to nc @ 6lpm. sits on side of bed tolerating well. 1400 tolerated nc but as flare stitcher wanting bipap back on every two hours. reapplied and setting 16/6. FIO2 40%. in and out. 1500 reported given to [facility]. saas aware of transfer need and als. 1545 saas here. patient loaded, report given to emt, and care turned over.
== END 2024-11-30 15:45 | disposition short-term general hospital (02) | DRG 189 ==
LOC: CHSED 16:49 → CHS2ND 17:11
PROVIDERS: Nurse Practitioner Acute Care; Admitting Provider Internal Medicine; Emergency Provider Internal Medicine Critical Care Medicine; PCP Nurse Practitioner; Visit Provider Internal Medicine
DX: J96.01 Acute respiratory failure with hypoxia (principal); J18.9 Pneumonia, unspecified organism; J45.41 Moderate persistent asthma with (acute) exacerbation; J96.02 Acute respiratory failure with hypercapnia; J10.1 Influenza due to other identified influenza virus with other respiratory manifestations; M41.9 Scoliosis, unspecified; Z85.048 Personal history of other malignant neoplasm of rectum, rectosigmoid junction, and anus; Z87.891 Personal history of nicotine dependence
CPT/HCPCS: 36415; 36600; 70450; 71045; 80053; 82805; 82948; 83605; 83690; 83735; 83880; 84443; 84484; 85025; 85380; 85610; 85730; 87040; 87637; 93005; 94640; 94667; 96365; 96368; 96372; 96375; 96376; 99285; A9270; G0378; J0456; J0696; J1650; J2919

== ENCOUNTER 2024-11-30 16:36 | Inpatient (IN) | payer MEDICARE, SELFPAY ==
[2024-11-30] VITALS (9 sets, daily range): BP systolic 130–159; BP diastolic 71–80; PULSE 63–109; RESP 20–24; TEMP 36.9; O2SAT 90–96; BMI 32.1
--- NOTE | ~2024-11-30 | XR_ITS ---
Portable chest x-ray Comparison: 11/28/2024 Clinical History: Pneumonia Findings: There are probable small to moderate bilateral pleural effusions with moderate pulmonary e shaji pattern. Cardiomediastinal silhouette is stable. Stable scoliosis. Impression: [id number] bilateral pleural effusions with moderate pulmonary edema pattern. Correlate clinic ally for infection. Reviewed, dictated and finalized at [facility]. E PRODUCTS MAKER Impression: [id number] bilateral pleural effusions with moderate pulmonary edema pat tern. Correlate clinically for infection.
--- NOTE | ~2024-11-30 | XR_ITS ---
Clinical Indication: Pleural effusions, atelectasis PA and lateral views of the chest: Comparison: 12/03/2024 Findings: There is central congestive change and probable minimal bibasilar pulmonary edema. Low lung volumes are present.. Cardiomediastinal silhouette is within normal limits. There is severe scolios is with spinal fixation dawit present. Suspected fracture of the dawit.. Impression: Central congestive change and mild bibasilar pulmonary edema. Reviewed, dictated and finalized at location M. [employer] JOU[employer] Impression: Central congestive change and mild bibasilar pulmonary edema.
--- NOTE | ~2024-11-30 | CT_ITS ---
EXAMINATION: CT diagnostic chest wo con DATE: 12/03/2024 11:08 INDICATION: Pleural effusions, ? pneumonia, kyphoscoliosis TECHNIQUE: Computed tomography (CT) of the chest was performed without intravenous contrast. Addition al 3D reconstructions utilizing coronal maximum intensity projection (MIP) were performed. Automated exposure control and iterative reconstruction technique were employed. The dose-length product was 39 7.59 mGy-cm. COMPARISON: None FINDINGS: Complete collapse of the right middle and lower lobes. Partial left lower lobar collapse. Trace bilat eral pleural effusions. No evident pneumonia, pulmonary edema or other pulmonary infarct in the aerat ed portions the lungs. Heart size is normal. No pericardial effusion. Thoracic aorta is normal in teressa iber. There is enlargement of the central pulmonary arteries consistent with pulmonary arterial hyper tension. Calcified left upper lobe nodule and calcified left hilar lymph nodes consistent with old gr anulomatous disease. No pathologically enlarged thoracic lymphadenopathy. Multiple small hepatic and splenic calcifications consistent with old granulomatous disease. There ar e segmentation anomalies in the thoracic spine with left-sided hemivertebrae fuse between C7 and T1, a right-sided T2 hemivertebrae fuse between T1 and T3, a left-sided T6 hemivertebra pleural fused to T5. There is severe kyphosis and levorotoscoliosis centered at the upper lumbar spine. This is spanne d by a partially visualized Sampson dawit with laminar hook on the right at the level of T9 and whic h extends beyond the inferior margin of the field of imaging. There is a chronic fracture of the Erasmo ington dawit. There is anterior and posterior spinal fusion in the visualized mid to upper lumbar spine . IMPRESSION: 1. Complete collapse of the right middle and lower lobes and partial collapse of the left lower lobe without evident obstructing lesions. 2. Trace bilateral pleural effusions. 3. Enlargement of the central pulmonary arteries consistent with pulmonary arterial hypertension. 4. 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 Chronic fracture of a right-sided Sampson dawit for fixation of a partial ly visualized thoracolumbar posterior spinal fusion. Reviewed, dictated and finalized at location B. [employer] SU[employer] SPECIALIST IMPRESSION: 1. Complete collapse of the right middle and lower lobes and partial collapse o f the left lower lobe without evident obstructing lesions. 2. Trace bilateral pleural effusions. 3. Enlargement of the central pulmonary arteries consistent with pulmonary yadira rial hypertension. 4. 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 Chronic fracture of a right-si ded Sampson dawit for fixation of a partially visualized thoracolumbar posteri or spinal fusion.
--- OUTSIDE RECORDS SUMMARY | 2024-11-30 16:39 | XMS_ITS | Clinical Summary ---
Author Organization [facility] Address [address] [place] [id number] Care Team Providers Care Medart Operator Name Role Phone Celi Falk SHERLEY Primary Care Provider [phone]- [phone] Allergies Active Allergy Reactions Criticality Noted Date Comments Pentoxifylline Nausea Only,Dizziness 03/18/2021 Abdominal pain Sulfa Antibiotics Hives 03/18/2021 Medications No known medications Active Problems Problem Noted Date Diagnosed Date Primary hypertension 12/13/2022 Rectal cancer metastasized t o intra-abdominal lymph node ([facility]) 03/18/2021 Social History Tobacco Use Types Packs/Day Years Used Date Smoking Tobacco: Never Smokeless Tobacco: Never Tobacco Cessation:Counseling Given: Not Answered Sex and Gender Information Value Date Recorded Sex Assigned at Not on file Legal Sex 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 Gender Identity Not on file Sexual Orientation Not on file Last Filed Vital Signs Vital Sign Reading Time Taken Comments Blood Pressure 198/121 12/13/2022 2:01 PM FUR BLOWING MACHINE ATTENDANT Pulse 113 12/13/2022 2:01 PM FUR BLOWING MACHINE ATTENDANT Temperature 36.2 C (97.2 F) 12/13/2022 2:01 PM FUR BLOWING MACHINE ATTENDANT Respiratory Rate 22 11/18/2021 11:45 AM FUR BLOWING MACHINE ATTENDANT Oxygen Saturation 96% 11/18/2021 11:45 AM FUR BLOWING MACHINE ATTENDANT Inhaled Oxygen Concentration - - Weight 94.4 kg (208 lb 3.2 oz) 12/13/2022 2:01 P M FUR BLOWING MACHINE ATTENDANT Height - - Body Mass Index - [...] age to complete this topic Insurance MEDICARE [facility] [employer] Care Teams Medart Operator Relationship Specialty Start Date End Date Celi Falk FNP PCP - General NURSE PRACTITIONER 7/19/19
--- OUTSIDE RECORDS SUMMARY | 2024-11-30 16:39 | XMS_ITS | Encounter Summary ---
Author Organization [facility] Address [address] [place] [address] Care Team Providers Care Breakfast Manager Name Role Phone Celi Falk SHERLEY Primary Care Provider [phone]- [phone] Reason for Referral * Imaging (Routine) - Closed Specialty Diagnoses / Procedures Referred By Contac t Referred To Contact RADIOLOGY Diagnoses Rectal cancer ([facility]) Procedures CT CHEST+ABD+PEL W CON Juliano Mustafa MD Phone: tel: fax: Referral ID Status Reason Start Date Expiration Date Visits Re quested Visits Authorized [id number] Closed 10/17/2019 11/17/2020 1 1 R INSTALLER Encounter Details Date Type Department Care Team (Late st Contact Info) Description 10/17/2019 Community Orders [facility] Juliano Mustafa MD [address] [place] [id number] Social History Tobacco Use Types Packs/Day Years Used Date Smoking Tobacco: Never Assessed Sex and Gender Information Value Date Recorded Sex Assigned at Not on file Legal Sex Male 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 Stable postsurgical changes of the colon with no definite signs of recurrent neoplasm. 2. No evidence of metastatic disease within the chest, abdomen or pelvis. 3. Stable soft tissue density in the presacral space, favored to represent posttreatment changes. Interpreted By: Obey Fierro MD, 11/14/2019 1:44 PM Narrative 11/14/2019 1:55 PM MOTOR INSTALLER Examination: CT chest, abdomen and pelvis with [...] rectum documented in this encounter Care Teams Breakfast Manager Relationship Specialty Start Date End Date Celi Falk FNP PCP - General NURSE PRACTITIONER 04/27/19 documented as of this encounter
--- NOTE | 2024-11-30 16:44 | P.HP_ITS ---
H&P: HPI History of Present Illness Date/Time: 11/30/24 16:44 Chief Complaint: Shortness of Breath Narrative: 64 y/o M originally presented with shortness of breath with PMH of kyphosis, rectal cancer s/p resection with ostomy creation, and asthma. The patient presented to [place] [facility] on 11/28/24 for further evaluation of shortness of breath, chest congestion, fever and a productive cough that had been ongoing for 2 weeks.? He was found to be hypoxic at 85% on room air.? Initial chest x-ray showed elevation of the right hemidiaphragm and focal opacity in the medial right lower lung zone.? The patient tested positive for influenza A. ?He was admitted for further treatment of influenza and pneumonia with Tamiflu, Ceftriaxone, and Azithromycin. ?Post admission to the floor, the patient became altered on 11/29 which prompted an ABG and head CT.? ABG showed a CO2 of 81.[address] showed no significant abnormality. ?He was started on continuous BiPAP and repeat ABG showed worsening hypercapnia.? This prompted a transfer to [place] and the patient was started on Solu-Medrol.? He reports history of asthma. Denies hx of COPD or smoking. Initial VS at presentation: ?98.4? F, HR 111, R 22, 156/84, and 85% on room air.? Initially placed on NC with increase to 90-92% ED workup showed:? No leukocytosis, no anemia, normal coags, D-dimer 0.36, initial ABG showed a pH of 7.33/CO2 51.05/250.5/O2 saturation 97.8% on 2L, creatinine 0.96 and GFR >60, high sensitivity troponin 78.9-> 85.5-> 66.4, TSH 1.95, and patient tested positive for flu A.? CXR showed elevation of the right hemidiaphragm with decreased right lung volume an focal opacity in the medial right lower lung zone. Review of Systems Review of Systems: All systems reviewed & are unremarkable except as noted in HPI and below PMFSH Past Medical History Medical History Rectal cancer Kyphoscoliosis Asthma Surgical History Surgical History History of colostomy History of colectomy Family History Family History Father Family history of cardiovascular disease Social History Social History Smoking status: Never smoker Smoking end date: 10/10/86 Alcohol intake: current Drinks per week: 1 Substance use: current Substance use type: marijuana Last use: 2 weeks ago Do You Feel Safe in your Home?: Yes Lack of Transportation: No Lack of Food: Never True Current Housing: I Have Housing Concerned About Future Housing: No Difficulty Paying Gas/Electric Bills: No Difficulty Paying for Meds: No Currently Unemployed: No Education: Trade/Vocational Certificate Difficulty w/ Childcare or Family Care: No Spiritual care concerns: No Meds Home Medications and Allergies Home Medications ?Medication ?Instructions ?Recorded ?Confirmed ?Type lisinopril 20 mg tablet 20 mg PO DAILY 11/29/24 11/29/24 History Allergies Allergy/AdvReac Type Severity Reaction Status Date / Time Sulfa (Sulfonamide Allergy Intermediate Rash Verified 11/28/24 13:08 Antibiotics) Exam Const: General: comfortable and no acute distress Other: , male, mildly ill-appearing HENMT: Face/Nose/Sinus: Normal nares present Mouth: Yes dry mucous membranes Other: BiPAP in place Eyes: General: appearance normal, both eyes and all related structures Sclera: sclerae normal Pupils: Equal, round and reactive pupils present EOM: EOMs intact bilaterally Resp: Other: absent lung sounds in the right lower lobe, faint crackles in the left lower lobe. faint intermittent exp wheeze. Cardio: Rate: regular rate Rhythm: regular rhythm Other: +murmur and frequent ectopy. Skin: General skin exam: normal color and no rashes or lesions noted Wounds: no wounds Neuro: Speech: normal speech Motor exam (neuro): 5/5 motor strength present throughout Sensory Exam: normal sensation Other: A&O x4 Extrem: General: normal to inspection Psych: Mental Status: mental status grossly normal Affect: normal affect Other: Good insight and judgment, pleasant Assessment and Plan Assessment and plan (1) Respiratory failure with hypoxia and hypercapnia: Qualifiers: Chronicity: acute Qualified Code(s): J96.01 - Acute respiratory failure with hypoxia; J96.02 - Acute respiratory failure with hypercapnia Code(s): J96.91 - Respiratory failure, unspecified with hypoxia; J96.92 - Respiratory failure, unspecified with hypercapnia Status: Acute Assessment and Plan: - CXR: Elevation the right hemidiaphragm with decreased right lung volume and focal opacity at the medial right lower lung zone which could represent associated atelectasis although differential includes pneumonia. - EKG, initial:? Sinus rhythm with PACs, LVH with ST-T change, borderline R-wave progression anterior leads, minimal Q-waves inferior/high lateral leads, ST-T-wave abnormality in inferior leads consider ischemia. - flu A positive on 11/28 - ABG, most recent (11/30 at 0700):? pH 7.41, pCO2 56.9, pO2 75.9, HCO3 35.2, O2 sat 95.4 % on BiPAP. ? Peak CO2 at 91.4 on 11/29 ? Repeat this evening and in AM - pulmonary consulted - continue BiPAP, settings adjusted for this evening - DuoNeb and Solu-Medrol maría - continue Ceftriaxone, Azithromycin (2) Pneumonia: Qualifiers: Pneumonia type: due to influenza A virus Qualified Code(s): J10.00 - Influenza due to other identified influenza virus with unspecified type of pneumonia Code(s): J18.9 - Pneumonia, unspecified organism Status: Acute Assessment and Plan: - CXR c/f focal opacity of the medial right lower lung zone - risk factors and complicating factors:? Hypercapnia, Flu A, Kyphoscoliosis - started on CAP tx: ?ceftriaxone and azithromycin on 11/29 - MRSA PCR and sputum culture - currently requiring BiPAP for hypercapnia - supportive care (3) Hyponatremia: Code(s): E87.1 - Hypo-osmolality and hyponatremia Status: Acute Assessment and Plan: - Na 121, previously 141 on 11/29/24. - add serum osmolality, urine osmolality, urine sodium, protein to creatinine ratio, urine creatinine - repeat bmp now to verify, if accurate -> BMP and neurochecks Q2H - d/c Tamiflu, known rare SE of hyponatremia - trend (4) Elevated troponin: Code(s): R79.89 - Other specified abnormal findings of blood chemistry Status: Acute Assessment and Plan: - EKG, initial: Sinus rhythm with PACs, LVH with ST-T change, borderline R-wave progression anterior leads, minimal Q-waves inferior/high lateral leads, ST-T-wave abnormality in inferior leads consider ischemia. - Troponin, high sensitivity: 78.9-> 85.5-> 66.4, repeat troponin this evening. - BNP 4042 - SL nitro PRN - no echo or stress test on file, echo ordered - telemetry monitoring - DDx: elevated troponin secondary to hypoxia v new CHF v NSTEMI (5) Influenza A: Code(s): J10.1 - Influenza due to other identified influenza virus with other respiratory manifestations Status: Acute Assessment and Plan: - tested positive for influenza A on 11/28, however had symptoms since 11/21 - Tamiflu 75 mg BID, started on 11/28. d/c'd. - supportive care: ? Tylenol p.r.n. ? Mucinex maría ? DuoNeb p.r.n. ? Tessalon Perles p.r.n. ? Lozenge p.r.n - monitor WBC/CBC (6) Asthma: Qualifiers: Asthma complication type: with acute exacerbation Asthma persistence: intermittent Asthma severity: mild Qualified Code(s): J45.21 - Mild intermittent asthma with (acute) exacerbation Code(s): J45.909 - Unspecified asthma, uncomplicated Status: Acute Assessment and Plan: - longstanding history of very mild intermittent asthma with acute exacerbation secondary to influenza/pneumonia - pulmonology consulted - DuoNeb scheduled - Solu-Medrol 60 mg IV q.6 Plan Diet:? Heart healthy GI Prophylaxis: ?Not currently indicated DVT Prophylaxis: ?Lovenox SQ Lines: ?Peripheral Code Status:? Full code Quality VTE Prophylaxis VTE prophylaxis: pharmacologic ordered Hospitalist MIPS Advance Care Plan I have confirmed that the patient's Advanced Care Plan is present, code status is documented, or surrogate decision maker is listed in patient medical record.: Yes Medication Reconciliation I have utilized all available resources to obtain, update and review the patients current medications (includes all prescriptions, OTC, herbals, cannabis, and nutritional supplements).: Yes
[2024-11-30 17:33] LABS: Blood Urea Nitrogen 37 mg/dL (9-20); Calcium 8.2 mg/dL (8.4-10.2); Carbon Dioxide > 40 mmol/L (22-30); Chloride 92 mmol/L (98-107); Estimated CRCL calculation 94 ml/min; Estimated Glomerular Filt Rate > 60; Glucose 119 mg/dL (65-110); Potassium 4.4 mmol/L (3.4-5.0); Sodium 136 mmol/L (137-145)
[2024-11-30 18:15] LABS: Troponin I 0.019 ng/mL (0.000-0.034)
[2024-11-30 18:21] LABS: Alveolar/Arterial O2 Gradient 153.7 mmHg; Fractional Inspired Oxygen 40 %; HCO3 ABG 39.4 mEq/l (22.0-26.0); Oxygen Content ABG 19.6 %vol (16.0-22.0); Oxyhemoglobin 91.2 % THb (90.0-100.0); PO2 ABG 60.5 mmHg (80.0-100.0); PO2 FiO2 Ratio Arterial Blood 1.51 %; Total Hemoglobin 15.3 g/dL (12.0-18.0); pH ABG 7.423 (7.350-7.450)
[2024-11-30 18:33] LABS: Device BIPAP; Modified Allen's Test Pass; PCO2 ABG 61.7 mmHg (35.0-45.0); Site Drawn LEFT RADIAL
[2024-11-30 18:34] LABS: Expiratory Pressure 6 cmH2O; Inspiratory Pressure 16 cmH2O
[2024-11-30] MEDS: AZITHROMYCIN 500 MG/NS 250 ML 500 MG/250 ML BAG 250 MG IVPB (18:36)
[2024-11-30] MEDS: methylPREDNISolone SOD SUCC 125 MG VIAL 60 MG IV PUSH (18:38)
[2024-11-30 19:56] LABS: MRSA (PCR) NOT DETECTED (NOT DETECTE)
[2024-11-30] MEDS: IPRATROPIUM 0.5 MG/ALBUTEROL SULFATE 2.5 MG AMPUL.NEB 3 ML INHALATION (21:49)
[2024-11-30] MEDS: guaiFENesin 12 HR 600 MG TABCR PO (22:17)
[2024-12-01] VITALS (26 sets, daily range): BP systolic 131–159; BP diastolic 71–86; PULSE 63–89; RESP 18–28; TEMP 36.4–36.9; O2SAT 92–98
--- NOTE | 2024-12-01 | ECHO_ITS ---
Patient Info Name: Ricky Lovell Age: 64 years : 1960 Gender: Male Ht: 67 in Wt: 207 lbs BSA: 2.14 m2 HR: 81 bpm BP: 135 / 73 mmHg Technical Quality: Good Exam Date: 12/01/2024 12:11 PM Exam Location: Echo Lab Exam Room: [facility] Patient Status: Inpatient Admit Date: 11/30/2024 Staff Ordering Physician: Jayshree Merrill APRN Mill Machinist: Mary Jane Brandon RDCS Attending Provider: Héctor Cruz MD Referring Physician: Garfield FRANCO; Exam Type: CA echo doppler color flow Study Info Indications - Elevated troponin, BNP and SOB Complete two-dimensional, color flow and Doppler transthoracic echocardiogram is performed. Summary 1. Complete two-dimensional, color flow and Doppler transthoracic echocardiogram is performed. 2. Left ventricular chamber dimension is normal. 3. Left ventricular systolic function is normal, estimated at 60-65%. 4. There is mild concentric increased left ventricular wall thickness. 5. The left ventricular diastolic function is grade I diastolic dysfunction. 6. E/e' 10 is mildly elevated. 7. Left atrial chamber dimension is mildly enlarged. 8. There is trace mitral valve regurgitation. 9. No pulmonary hypertension, estimated pulmonary arterial systolic pressure is 29 mmHg. 10. There is trace pulmonic regurgitation. Left Ventricle E/e' 10 is mildly elevated. Left ventricular chamber dimension is normal. Left ventricular systolic function is normal, estimated at 60-65%. There is mild concentric increased left ventricular wall thickness. The left ventricular diastolic function is grade I diastolic dysfunction. Right Ventricle Right ventricular systolic function is normal and with normal TAPSE 2.7 cm. Right ventricular chamber dimension is normal. Left Atria Left atrial chamber dimension is mildly enlarged. Right Atria Right atrial chamber dimension is normal. Aortic Valve The aortic valve is trileaflet. There is no aortic valve stenosis. There is no aortic valve regurgitation. Pulmonic Valve There is trace pulmonic regurgitation. Mitral Valve There is no mitral valve stenosis. There is trace mitral valve regurgitation. Tricuspid Valve There is no tricuspid valve regurgitation. No pulmonary hypertension, estimated pulmonary arterial systolic pressure is 29 mmHg. Pericardium/Pleural There is no pericardial effusion. Inferior Vena Cava Normal inferior vena cava with >50% collapse upon inspiration consistent with normal right atrial pressure, 5 mmHg. Aorta The aortic root size at the sinus of Valsalva is normal. Left Ventricular Outflow Tract Name Value Normal LVOT 2D LVOT Diameter 2.4 cm LVOT Doppler LVOT Peak Gradient 8 mmHg LVOT Mean Gradient 4 mmHg LVOT VTI 30 cm LVOT VTI/AV VTI Ratio 0.9 LVOT Stroke Volume 135 ml LVOT CO 12.3 l/min LVOT CI 5.8 l/min/m2 Pulmonic Valve Name Value Normal PV Doppler PV Peak Gradient 6 mmHg Mitral Valve Name Value Normal MV Doppler MV Peak Gradient 11 mmHg MV Mean Gradient 4 mmHg MV Decel Mckenzie 563 cm/s2 MV PHT 49 ms MV Area (PHT) 4.5 cm2 4.0-5.0 MV Area (Cont Eq VTI) 3.8 cm2 MV Regurgitation Doppler MR Peak Gradient 94 mmHg MV Diastolic Function MV E Peak Velocity 95 cm/s MV A Peak Velocity 136 cm/s MV E/A 0.7 MV Decel Time 168 ms MV Annular TDI MV E/e' (Septal) 14.9 <=8.0 MV E/e' (Lateral) 8.7 <=8.0 MV E/e' (Average) 11.8 Tricuspid Valve Name Value Normal TV Regurgitation Doppler TR Peak Velocity 244 cm/s TR Peak Gradient 24 mmHg Estimated PAP/RSVP RA Pressure 5 mmHg <=5 PA Systolic Pressure 29 mmHg <36 RV Systolic Pressure 29 mmHg <36 Aortic Valve Name Value Normal AV Doppler AV Peak Velocity 194 cm/s AV Peak Gradient 12 mmHg AV Mean Gradient 7 mmHg AV VTI 34 cm AV Area (Cont Eq VTI) 4.0 cm2 >=3.0 AV Area (Cont Eq Russ) 3.3 cm2 AV Regurgitation 2D LVOT Area 4.5 cm2 Ventricles Name Value Normal LV Dimensions 2D/MM IVS Diastolic Thickness (2D) 1.3 cm 0.6-1.0 LVID Diastole (2D) 5.7 cm 4.2-5.8 LVIW Diastolic Thickness (2D) 1.2 cm 0.6-1.0 LVID Systole (2D) 3.7 cm 2.5-4.0 LVOT Diameter 2.4 cm LV Mass (2D Cubed) 304.27 g 88.00-224.00 LV Mass Index (2D Cubed) 142 g/m2 49-115 Relative Wall Thickness (2D) 0.44 LV Fractional Shortening/Ejection Fraction 2D/MM LV Fractional Shortening (2D) 34 % 25-43 LV EF (2D Teicholz) 62 % 52-72 LV Diastolic Volume (4C MOD) 142 ml LV EF (4C MOD) 60 % LV Diastolic Volume (2C MOD) 142 ml LV EF (2C MOD) 65 % LV Diastolic Volume (BP MOD) 144 ml 62-150 LV Diastolic Volume Index (BP MOD) 68 ml/m2 34-74 LV Systolic Volume (BP MOD) 55 ml 21-61 LV Systolic Volume Index (BP MOD) 26 ml/m2 11-31 LV EF (BP MOD) 62 % 52-72 LV Diastolic Length (4C) 8.7 cm LV Systolic Length (4C) 7.6 cm LV Stroke Volume (4C MOD) 85 ml Atria Name Value Normal LA Dimensions LA Volume (4C A-L) 47 ml LA Volume (BP A-L) 52 ml Report Signatures
[2024-12-01] MEDS: methylPREDNISolone SOD SUCC 125 MG VIAL 60 MG IV PUSH ×5 (00:15→23:55)
[2024-12-01] MEDS: IPRATROPIUM 0.5 MG/ALBUTEROL SULFATE 2.5 MG AMPUL.NEB 3 ML INHALATION ×4 (02:31→21:16)
[2024-12-01 05:47] LABS: Base Excess ABG 8.3 mEq/l (+/-2.0); Fractional Inspired Oxygen 35 %; HCO3 ABG 34.4 mEq/l (22.0-26.0); Oxygen Content ABG 19.1 %vol (16.0-22.0); Oxygen Saturation ABG 90.5 % (95.0-100.0); Oxyhemoglobin 91.4 % THb (90.0-100.0); PCO2 ABG 52.8 mmHg (35.0-45.0); PO2 ABG 58.2 mmHg (80.0-100.0); PO2 FiO2 Ratio Arterial Blood 1.66 %; Total Hemoglobin 14.9 g/dL (12.0-18.0); pH ABG 7.432 (7.350-7.450)
[2024-12-01 05:48] LABS: Basophils Percent Auto 0.1 % (0.2-1.2); Hematocrit 47.1 % (42.0-52.0); Hemoglobin 14.2 g/dL (14.0-18.0); Immature Granulocyte Absolute 0.06 K/mm3 (0.00-0.031); Immature Granulocyte Percent A 0.6 % (0-0.5); Lymphocytes Absolute Auto 0.11 K/mm3 (0.9-3.2); Lymphocytes Percent Auto 1.1 % (18.3-44.2); Mean Corpuscular HGB Conc 30.1 g/dl (32-36); Mean Corpuscular Hemoglobin 27.6 pg (26-34); Mean Corpuscular Volume 91.6 fl (80-100); Mean Platelet Volume 9.7 fl (7.4-10.4); Monocytes Absolute Auto 0.2 K/mm3 (0.1-0.6); Monocytes Percent Auto 1.6 % (2.6-8.5); Neutrophils Absolute Auto 9.3 K/mm3 (1.3-6.7); Neutrophils Percent Auto 96.6 % (45.5-73.1); Nucleated Red Blood Cells Perc 0.4 % (0.0-0.2); Platelet Count Result 246 k/mm3 (150-375); Red Blood Count 5.14 M/mm3 (4.6-6.20); Red Cell Distribution Width 16.8 % (11.5-14.5); White Blood Count 9.6 K/mm3 (4.5-10.0)
[2024-12-01 05:51] LABS: Device NON-INVASIVE VENT; Modified Allen's Test Pass; Site Drawn LEFT RADIAL
[2024-12-01 05:52] LABS: Non-Invasive Expiratory Pressure 6 CMH2O; Non-Invasive Inspiratory Pressure 16 CMH2O; Non-Invasive Vent Rate 24 /MIN
[2024-12-01 05:56] LABS: Alanine Aminotransferase 47 U/L (6-50); Albumin Level 3.2 g/dL (3.5-5.1); Alkaline Phosphatase 95 U/L (38-126); Anion Gap 7 mmol/L (4-12); Aspartate Amino Transferase 22 U/L (17-59); Bilirubin,Total 1.2 mg/dL (0.2-1.3); Blood Urea Nitrogen 36 mg/dL (9-20); Calcium 8.1 mg/dL (8.4-10.2); Carbon Dioxide 39 mmol/L (22-30); Chloride 90 mmol/L (98-107); Estimated CRCL calculation 84 ml/min; Estimated Glomerular Filt Rate > 60; Glucose 145 mg/dL (65-110); Magnesium 2.7 mg/dL (1.6-2.3); Phosphorus 3.4 mg/dL (2.5-4.5); Potassium 4.2 mmol/L (3.4-5.0); Sodium 136 mmol/L (137-145)
--- NOTE | 2024-12-01 08:34 | P.PNIM_ITS ---
Progress Note: A&P Assessment and Plan (1) Respiratory failure with hypoxia and hypercapnia: Qualifiers: Chronicity: acute Qualified Code(s): J96.01 - Acute respiratory failure with hypoxia; J96.02 - Acute respiratory failure with hypercapnia Code(s): J96.91 - Respiratory failure, unspecified with hypoxia; J96.92 - Respiratory failure, unspecified with hypercapnia Status: Acute Assessment and Plan: - CXR: Elevation the right hemidiaphragm with decreased right lung volume and focal opacity at the medial right lower lung zone which could represent associated atelectasis although differential includes pneumonia. - EKG, initial:? Sinus rhythm with PACs, LVH with ST-T change, borderline R-wave progression anterior leads, minimal Q-waves inferior/high lateral leads, ST-T-wave abnormality in inferior leads consider ischemia. - flu A positive on 11/28 - ABG, most recent (11/30 at 0700):? pH 7.41, pCO2 56.9, pO2 75.9, HCO3 35.2, O2 sat 95.4 % on BiPAP. ? Peak CO2 at 91.4 on 11/29 ? Repeat this evening and in AM - pulmonary consulted - continue BiPAP, settings adjusted. Repeat ABG 11/29 2:7.4 //34 - DuoNeb and Solu-Medrol maría - continue Ceftriaxone, Azithromycin Continue BiPAP at night (2) Pneumonia: Qualifiers: Pneumonia type: due to influenza A virus Qualified Code(s): J10.00 - Influenza due to other identified influenza virus with unspecified type of pneumonia Code(s): J18.9 - Pneumonia, unspecified organism Status: Acute Assessment and Plan: - CXR c/f focal opacity of the medial right lower lung zone - risk factors and complicating factors:? Hypercapnia, Flu A, Kyphoscoliosis - started on CAP tx: ?ceftriaxone and azithromycin on 11/29 - MRSA PCR negative and sputum culture pending - currently requiring BiPAP for hypercapnia - supportive care Pulmonary consulted (3) Hyponatremia: Code(s): E87.1 - Hypo-osmolality and hyponatremia Status: Acute Assessment and Plan: - Na 121, previously 141 on 11/29/24. - add serum osmolality, urine osmolality, urine sodium, protein to creatinine ratio, urine creatinine - repeat bmp was 136 unclear reason for 1 record of hyponatremia. - d/c Tamiflu, known rare SE of hyponatremia -sodium level continues to remain stable May resume Tamiflu and monitor (4) Elevated troponin: Code(s): R79.89 - Other specified abnormal findings of blood chemistry Status: Acute Assessment and Plan: - EKG, initial: Sinus rhythm with PACs, LVH with ST-T change, borderline R-wave progression anterior leads, minimal Q-waves inferior/high lateral leads, ST-T- wave abnormality in inferior leads consider ischemia. - Troponin, high sensitivity: 78.9-> 85.5-> 66.4, repeat troponin negative - BNP 4042 - SL nitro PRN - no echo or stress test on file, echo ordered - telemetry monitoring - DDx: elevated troponin secondary to hypoxia v new CHF v NSTEMI (5) Influenza A: Code(s): J10.1 - Influenza due to other identified influenza virus with other respiratory manifestations Status: Acute Assessment and Plan: - tested positive for influenza A on 11/28, however had symptoms since 11/21 - Tamiflu 75 mg BID, started on 11/28. d/c'd due to acute hyponatremia??. - supportive care: ? Tylenol p.r.n. ? Mucinex maría ? DuoNeb p.r.n. ? Lourdes Swannes p.r.n. ? Lozenge p.r.n - monitor WBC/CBC (6) Asthma: Qualifiers: Asthma complication type: with acute exacerbation Asthma persistence: intermittent Asthma severity: mild Qualified Code(s): J45.21 - Mild intermittent asthma with (acute) exacerbation Code(s): J45.909 - Unspecified asthma, uncomplicated Status: Acute Assessment and Plan: - longstanding history of very mild intermittent asthma with acute exacerbation secondary to influenza/pneumonia - pulmonology consulted - DuoNeb scheduled - Solu-Medrol 60 mg IV q.6 Plan Diet:? Heart healthy GI Prophylaxis: ?Not currently indicated DVT Prophylaxis: ?Lovenox SQ Lines: ?Peripheral Code Status:? Full code Subjective Date/time seen: 12/01/24 08:34 Interval history: HPI: 64 y/o M originally presented with shortness of breath with PMH of kyphosis, rectal cancer s/p resection with ostomy creation, and asthma. The patient presented to [place] [facility] on 11/28/24 for further evaluation of shortness of breath, chest congestion, fever and a productive cough that had been ongoing for 2 weeks.? He was found to be hypoxic at 85% on room air.? Initial chest x-ray showed elevation of the right hemidiaphragm and focal opacity in the medial right lower lung zone.? The patient tested positive for influenza A. ?He was admitted for further treatment of influenza and pneumonia with Tamiflu, Ceftriaxone, and Azithromycin. ?Post admission to the floor, the patient became altered on 11/29 which prompted an ABG and head CT.? ABG showed a CO2 of 81.[address] showed no significant abnormality. ?He was started on continuous BiPAP and repeat ABG showed worsening hypercapnia.? This prompted a transfer to [place] and the patient was started on Solu-Medrol.? He reports history of asthma. Denies hx of COPD or smoking. Initial VS at presentation: ?98.4? F, HR 111, R 22, 156/84, and 85% on room air.? Initially placed on NC with increase to 90-92% ED workup showed:? No leukocytosis, no anemia, normal coags, D-dimer 0.36, initial ABG showed a pH of 7.33/CO2 51.05/250.5/O2 saturation 97.8% on 2L, creatinine 0.96 and GFR >60, high sensitivity troponin 78.9-> 85.5-> 66.4, TSH 1.95, and patient tested positive for flu A.? CXR showed elevation of the right hemidiaphragm with decreased right lung volume an focal opacity in the medial right lower lung zone. Repeat ABG this a.m. 7.43/52/58/34. Nasal MRSA swab is negative No overnight events. Feels well. Used BiPAP overnight. Review of Systems Review of Systems: All systems reviewed & are unremarkable except as noted in HPI and below Exam Narrative: General: In no acute distress, well nourished alert and oriented x3 Cardiac: Normal S1 and S2. No murmur, gallops or friction rubs, peripheral pulses intact. Respiratory: Coarse breath sounds bilaterally no adventitious lung sounds Gastrointestinal: soft, non-distended, non-tender, normoactive bowel sounds. : voiding without difficulty. Extremities: moves all extremities well, no edema Skin: bridge of nose red, blanchable-- Band-Aid in place Neuro: Alert and oriented x4 Objective Data Vital Signs Vital Signs: Vital Signs - 24 hr 11/30/24 16:40 11/30/24 17:12 11/30/24 18:00 Temperature 98.4 F Pulse Rate 72 77 77 Respiratory Rate 24 H 22 H Blood Pressure 130/80 Pulse Oximetry 96 96 Oxygen Delivery BiPAP Oxygen Flow Rate Fraction of Inspired Oxygen 11/30/24 18:22 11/30/24 18:22 11/30/24 20:45 Temperature 98.4 F Pulse Rate 77 77 109 H Respiratory Rate 22 H 22 H Blood Pressure 155/76 H Pulse Oximetry 96 90 Oxygen Delivery BiPAP Oxygen Flow Rate Fraction of Inspired Oxygen 11/30/24 21:54 11/30/24 22:04 11/30/24 23:11 Temperature Pulse Rate 73 76 63 Respiratory Rate 20 20 22 H Blood Pressure Pulse Oximetry 95 Oxygen Delivery BiPAP Oxygen Flow Rate Fraction of Inspired Oxygen 40 11/30/24 23:33 12/01/24 00:00 12/01/24 00:00 Temperature 98.5 F Pulse Rate 68 68 63 Respiratory Rate 22 H 22 H Blood Pressure 159/71 H Pulse Oximetry 93 93 Oxygen Delivery BiPAP Oxygen Flow Rate Fraction of Inspired Oxygen 40 12/01/24 00:30 12/01/24 02:00 12/01/24 02:32 Temperature Pulse Rate 66 71 65 Respiratory Rate 24 H 24 H Blood Pressure Pulse Oximetry 98 Oxygen Delivery BiPAP Oxygen Flow Rate Fraction of Inspired Oxygen 12/01/24 04:00 12/01/24 04:00 12/01/24 04:23 Temperature 98.5 F Pulse Rate 63 63 67 Respiratory Rate 22 H 22 H Blood Pressure 140/73 Pulse Oximetry 92 92 Oxygen Delivery BiPAP Oxygen Flow Rate Fraction of Inspired Oxygen 40 12/01/24 04:35 12/01/24 05:52 12/01/24 05:52 Temperature Pulse Rate 68 74 67 Respiratory Rate 28 H 22 H Blood Pressure Pulse Oximetry 93 92 Oxygen Delivery BiPAP Nasal Cannula Oxygen Flow Rate 3 Fraction of Inspired Oxygen 12/01/24 08:14 Temperature 98.4 F Pulse Rate 74 Respiratory Rate 20 Blood Pressure 135/73 Pulse Oximetry 98 Oxygen Delivery Oxygen Flow Rate Fraction of Inspired Oxygen Intake/Output Intake/Output: Intake & Output 11/28/24 11/29/24 11/30/24 12/01/24 23:59 23:59 23:59 23:59 Intake Total 50 350 Output Total 400 Balance 50 -50 Meds/Results Medications: Active Medications Generic Name Dose Route Start Last Admin Trade Name Freq PRN Reason Stop Dose Admin Acetaminophen 650 mg 11/30/24 16:50 Acetaminophen 325 Mg Tablet PO Q4H PRN Mild Pain (1-3) or Fever Albuterol/Ipratropium 3 ml 11/30/24 20:00 12/01/24 02:31 Ipratropium 0.5 Mg/Albuterol Sulfate 2.5 Mg Ampul.Neb 3 Ml INHALATION 3 ml Q6HRT MARÍA Administration Benzocaine 1 lozenge 11/30/24 16:53 Benzocaine/Menthol (*Bkc) 18 Ea Lozenge PO PRN PRN Sore Throat Benzonatate 100 mg 11/30/24 16:53 Benzonatate 100 Mg Capsule PO TID PRN Cough Enoxaparin Sodium 40 mg 12/01/24 09:00 Enoxaparin 40 Mg/0.4 Ml Syringe SUB-Q DAILY MARÍA Guaifenesin 600 mg 11/30/24 21:00 11/30/24 22:17 Guaifenesin 12 Hr 600 Mg Tabcr PO 600 mg Q12HR MARÍA Administration Azithromycin 500 mg in 250 mls @ 250 mls/hr 11/30/24 17:00 11/30/24 18:36 Zithromax IVPB 250 mls/hr Q24H MARÍA Administration Ceftriaxone Sodium 1 gm in 50 mls @ 100 mls/hr 11/30/24 18:00 11/30/24 19:00 Rocephin 1 Gm/Ns 50 Ml IVPB Infused Q24H MARÍA Infusion Methylprednisolone Sodium Succinate 60 mg 11/30/24 18:00 12/01/24 06:59 Methylprednisolone Sod Succ 125 Mg Vial IV PUSH 12/04/24 17:59 60 mg Q6HR MARÍA Administration Nitroglycerin 0.4 mg 11/30/24 16:53 Nitroglycerin Sl 0.4 Mg Tablet SUBLINGUAL Q5MIN PRN Chest Pain Perflutren Lipid Microsphere 0 ml 11/30/24 16:53 Perflutren Lipid Microspheres 1.5 Ml Vial Diluted To 10 Ml Total Volume IV PUSH 12/03/24 16:54 ONCE PRN adequate visualization Protocol Labs Labs: Laboratory Results - last 24 hr 11/30/24 11/30/24 11/30/24 17:05 17:14 17:58 WBC RBC Hgb Hct MCV MCH MCHC RDW Plt Count MPV Immature Gran % (Auto) Neut % (Auto) Lymph % (Auto) [place] % (Auto) Eos % (Auto) Baso % (Auto) Lymph # (Auto) [place] # (Auto) Eos # (Auto) Baso # (Auto) Abs Immat Gran (auto) Absolute Neuts (auto) Absolute Nucleated RBC Nucleated RBC % Puncture Site ABG pH ABG pCO2 ABG pO2 ABG PO2/FiO2 Ratio ABG HCO3 ABG O2 Saturation ABG O2 Content ABG Base Excess A-a Gradient Oxyhemoglobin Total Hemoglobin O2 Delivery Device O2 Liters/Min Vent Rate FiO2 Expiratory Pressure Inspiratory Pressure Sodium 136 L Potassium 4.4 Chloride 92 L Carbon Dioxide > 40 H Anion Gap BUN 37 H Creatinine 0.75 Estim Creat Clear Calc 94 Estimated GFR > 60 Glucose 119 H Calcium 8.2 L Phosphorus Magnesium Total Bilirubin AST ALT Alkaline Phosphatase Troponin I 0.019 Total Protein Albumin Nasal MRSA (PCR) Not detected 11/30/24 12/01/24 12/01/24 18:10 05:13 05:30 WBC 9.6 RBC 5.14 Hgb 14.2 Hct 47.1 MCV 91.6 MCH 27.6 MCHC 30.1 L RDW 16.8 H Plt Count 246 MPV 9.7 Immature Gran % (Auto) 0.6 H Neut % (Auto) 96.6 H Lymph % (Auto) 1.1 L [place] % (Auto) 1.6 L Eos % (Auto) 0.0 Baso % (Auto) 0.1 L Lymph # (Auto) 0.11 L [place] # (Auto) 0.2 Eos # (Auto) 0.0 Baso # (Auto) 0.0 Abs Immat Gran (auto) 0.06 H Absolute Neuts (auto) 9.3 H Absolute Nucleated RBC 0.040 H Nucleated RBC % 0.4 H Puncture Site Left radial Left radial ABG pH 7.423 7.432 ABG pCO2 61.7 H* 52.8 H ABG pO2 60.5 L 58.2 L ABG PO2/FiO2 Ratio 1.51 1.66 ABG HCO3 39.4 H 34.4 H ABG O2 Saturation 91.0 L 90.5 L ABG O2 Content 19.6 19.1 ABG Base Excess 12.0 8.3 A-a Gradient 153.7 130.0 Oxyhemoglobin 91.2 91.4 Total Hemoglobin 15.3 14.9 O2 Delivery Device Bipap Non-invasive vent O2 Liters/Min Not Reportable Not Reportable Vent Rate 24 FiO2 40 35 Expiratory Pressure 6 6 Inspiratory Pressure 16 16 Sodium 136 L Potassium 4.2 Chloride 90 L Carbon Dioxide 39 H Anion Gap 7 BUN 36 H Creatinine 0.85 Estim Creat Clear Calc 84 Estimated GFR > 60 Glucose 145 H Calcium 8.1 L Phosphorus 3.4 Magnesium 2.7 H Total Bilirubin 1.2 AST 22 ALT 47 Alkaline Phosphatase 95 Troponin I Total Protein 6.0 L Albumin 3.2 L Nasal MRSA (PCR)
[2024-12-01] MEDS: guaiFENesin 12 HR 600 MG TABCR PO ×2 (09:21→20:26)
[2024-12-01] MEDS: ENOXAPARIN 40 MG/0.4 ML SYRINGE SUB-Q (09:21)
[2024-12-01] MEDS: AZITHROMYCIN 500 MG/NS 250 ML 500 MG/250 ML BAG 250 MG IVPB (18:07)
[2024-12-02] VITALS (23 sets, daily range): BP systolic 140–159; BP diastolic 69–89; PULSE 55–109; RESP 16–22; TEMP 36.4–36.8; O2SAT 94–99
[2024-12-02] MEDS: IPRATROPIUM 0.5 MG/ALBUTEROL SULFATE 2.5 MG AMPUL.NEB 3 ML INHALATION ×4 (02:39→20:53)
[2024-12-02 05:10] LABS: Basophils Percent Auto 0.1 % (0.2-1.2); Hematocrit 46.2 % (42.0-52.0); Hemoglobin 14.1 g/dL (14.0-18.0); Immature Granulocyte Absolute 0.07 K/mm3 (0.00-0.031); Immature Granulocyte Percent A 0.8 % (0-0.5); Lymphocytes Absolute Auto 0.14 K/mm3 (0.9-3.2); Lymphocytes Percent Auto 1.7 % (18.3-44.2); Mean Corpuscular HGB Conc 30.5 g/dl (32-36); Mean Corpuscular Hemoglobin 27.3 pg (26-34); Mean Corpuscular Volume 89.4 fl (80-100); Mean Platelet Volume 9.6 fl (7.4-10.4); Monocytes Absolute Auto 0.2 K/mm3 (0.1-0.6); Neutrophils Percent Auto 95.4 % (45.5-73.1); Nucleated Red Blood Cells Perc 0.2 % (0.0-0.2); Platelet Count Result 235 k/mm3 (150-375); Red Blood Count 5.17 M/mm3 (4.6-6.20); Red Cell Distribution Width 16.8 % (11.5-14.5); White Blood Count 8.4 K/mm3 (4.5-10.0)
[2024-12-02 05:34] LABS: Alanine Aminotransferase 50 U/L (6-50); Albumin Level 3.3 g/dL (3.5-5.1); Alkaline Phosphatase 82 U/L (38-126); Anion Gap 5 mmol/L (4-12); Aspartate Amino Transferase 26 U/L (17-59); Bilirubin,Total 1.6 mg/dL (0.2-1.3); Blood Urea Nitrogen 29 mg/dL (9-20); Calcium 8.3 mg/dL (8.4-10.2); Carbon Dioxide 38 mmol/L (22-30); Chloride 92 mmol/L (98-107); Estimated CRCL calculation 102 ml/min; Estimated Glomerular Filt Rate > 60; Glucose 145 mg/dL (65-110); Magnesium 2.6 mg/dL (1.6-2.3); Potassium 4.7 mmol/L (3.4-5.0); Sodium 135 mmol/L (137-145)
[2024-12-02] MEDS: methylPREDNISolone SOD SUCC 125 MG VIAL 60 MG IV PUSH (05:58)
[2024-12-02] MEDS: BENZONATATE 100 MG CAPSULE PO ×2 (09:34→20:46)
[2024-12-02] MEDS: guaiFENesin 12 HR 600 MG TABCR PO ×2 (09:35→20:47)
[2024-12-02] MEDS: ENOXAPARIN 40 MG/0.4 ML SYRINGE SUB-Q (09:35)
[2024-12-02] MEDS: BENZOCAINE/MENTHOL (*BKC) 18 EA LOZENGE 1 LOZENGE PO (09:35)
--- NOTE | 2024-12-02 11:55 | PM.IMPN ---
Progress Note: A&P Assessment and Plan (1) Respiratory failure with hypoxia and hypercapnia: Qualifiers: Chronicity: acute Qualified Code(s): J96.01 - Acute respiratory failure with hypoxia; J96.02 - Acute respiratory failure with hypercapnia Code(s): J96.91 - Respiratory failure, unspecified with hypoxia; J96.92 - Respiratory failure, unspecified with hypercapnia Status: Acute Assessment and Plan: - CXR: Elevation the right hemidiaphragm with decreased right lung volume and focal opacity at the medial right lower lung zone which could represent associated atelectasis although differential includes pneumonia. - EKG, initial:? Sinus rhythm with PACs, LVH with ST-T change, borderline R-wave progression anterior leads, minimal Q-waves inferior/high lateral leads, ST-T-wave abnormality in inferior leads consider ischemia. - flu A positive on 11/28 - ABG, most recent (11/30 at 0700):? pH 7.41, pCO2 56.9, pO2 75.9, HCO3 35.2, O2 sat 95.4 % on BiPAP. ? Peak CO2 at 91.4 on 11/29 ? Repeat this evening and in AM - pulmonary consulted - continue BiPAP, settings adjusted. Repeat ABG 11/29 2:7.4 //34 - DuoNeb and Solu-Medrol maría - continue Ceftriaxone, Azithromycin Continue BiPAP at night Recheck ABG in a.m. Lower steroid to once a day (2) Pneumonia: Qualifiers: Pneumonia type: due to influenza A virus Qualified Code(s): J10.00 - Influenza due to other identified influenza virus with unspecified type of pneumonia Code(s): J18.9 - Pneumonia, unspecified organism Status: Acute Assessment and Plan: - CXR c/f focal opacity of the medial right lower lung zone - risk factors and complicating factors:? Hypercapnia, Flu A, Kyphoscoliosis - started on CAP tx: ?ceftriaxone and azithromycin on 11/29 - MRSA PCR negative and sputum culture pending - currently requiring BiPAP for hypercapnia at night - supportive care Pulmonary consulted (3) Hyponatremia: Code(s): E87.1 - Hypo-osmolality and hyponatremia Status: Acute Assessment and Plan: - Na 121, previously 141 on 11/29/24. - add serum osmolality, urine osmolality, urine sodium, protein to creatinine ratio, urine creatinine - repeat bmp was 136 unclear reason for 1 record of hyponatremia. - d/c Tamiflu, known rare SE of hyponatremia -sodium level continues to remain stable Discussed resuming Tamiflu and patient agreeable (4) Elevated troponin: Code(s): R79.89 - Other specified abnormal findings of blood chemistry Status: Acute Assessment and Plan: - EKG, initial: Sinus rhythm with PACs, LVH with ST-T change, borderline R-wave progression anterior leads, minimal Q-waves inferior/high lateral leads, ST-T-wave abnormality in inferior leads consider ischemia. - Troponin, high sensitivity: 78.9-> 85.5-> 66.4, repeat troponin negative - BNP 4042 - SL nitro PRN - no echo or stress test on file, echo ordered - telemetry monitoring - DDx: elevated troponin secondary to hypoxia v new CHF v NSTEMI (5) Influenza A: Code(s): J10.1 - Influenza due to other identified influenza virus with other respiratory manifestations Status: Acute Assessment and Plan: - tested positive for influenza A on 11/28, however had symptoms since 11/21 - Tamiflu 75 mg BID, started on 11/28. d/c'd due to acute hyponatremia??. - supportive care: ? Tylenol p.r.n. ? Mucinex maría ? DuoNeb p.r.n. ? Lourdes Strickland p.r.n. ? Lozenge p.r.n - monitor WBC/CBC Restart Tamiflu will continue to monitor sodium level (6) Asthma: Qualifiers: Asthma severity: mild Asthma persistence: intermittent Asthma complication type: with acute exacerbation Qualified Code(s): J45.21 - Mild intermittent asthma with (acute) exacerbation Code(s): J45.909 - Unspecified asthma, uncomplicated Status: Acute Assessment and Plan: - longstanding history of very mild intermittent asthma with acute exacerbation secondary to influenza/pneumonia - pulmonology consulted - DuoNeb scheduled - Solu-Medrol 60 mg IV q.6 Lower steroid once a day Plan Diet:? Heart healthy GI Prophylaxis: ?Not currently indicated DVT Prophylaxis: ?Lovenox SQ Lines: ?Peripheral Code Status:? Full code Subjective Date/time seen: 12/02/24 11:55 Interval history: Feels well. Coughing up mucus now. Breathing is better no chest pain Review of Systems Review of Systems: All systems reviewed & are unremarkable except as noted in HPI and below Exam Narrative: General: In no acute distress, well nourished alert and oriented x3 Cardiac: Normal S1 and S2. No murmur, gallops or friction rubs, peripheral pulses intact. Respiratory: Coarse breath sounds bilaterally no adventitious lung sounds Gastrointestinal: soft, non-distended, non-tender, normoactive bowel sounds. : voiding without difficulty. Extremities: moves all extremities well, no edema Skin: bridge of nose red, blanchable-- Band-Aid in place Neuro: Alert and oriented x4 Objective Data Vital Signs Vital Signs: Vital Signs - 24 hr 12/01/24 12:00 12/01/24 12:00 12/01/24 12:42 Temperature Pulse Rate 87 87 87 Respiratory Rate 18 Blood Pressure Pulse Oximetry 94 Oxygen Delivery Nasal Cannula Oxygen Flow Rate 4 Fraction of Inspired Oxygen 40 12/01/24 13:10 12/01/24 14:35 12/01/24 14:35 Temperature Pulse Rate 84 84 84 Respiratory Rate 20 20 Blood Pressure Pulse Oximetry 94 Oxygen Delivery Nasal Cannula Oxygen Flow Rate 3 Fraction of Inspired Oxygen 12/01/24 15:12 12/01/24 18:00 12/01/24 19:32 Temperature 97.6 F 98.1 F Pulse Rate 89 89 81 Respiratory Rate 20 18 Blood Pressure 151/79 H 159/86 H Pulse Oximetry 97 96 Oxygen Delivery Oxygen Flow Rate Fraction of Inspired Oxygen 12/01/24 20:00 12/01/24 20:00 12/01/24 21:16 Temperature Pulse Rate 79 75 Respiratory Rate 20 Blood Pressure Pulse Oximetry 95 Oxygen Delivery Nasal Cannula Oxygen Flow Rate 3 Fraction of Inspired Oxygen 12/01/24 21:20 12/01/24 21:28 12/01/24 22:00 Temperature Pulse Rate 83 72 Respiratory Rate 20 Blood Pressure Pulse Oximetry 95 Oxygen Delivery Nasal Cannula Oxygen Flow Rate 3 Fraction of Inspired Oxygen 12/01/24 22:10 12/02/24 00:00 12/02/24 00:00 Temperature 97.6 F Pulse Rate 76 73 Respiratory Rate 27 H 18 Blood Pressure 149/89 H Pulse Oximetry 95 99 95 Oxygen Delivery BiPAP Nasal Cannula Oxygen Flow Rate 3 Fraction of Inspired Oxygen 12/02/24 00:00 12/02/24 02:00 12/02/24 02:40 Temperature Pulse Rate 86 80 55 L Respiratory Rate 20 Blood Pressure Pulse Oximetry Oxygen Delivery Oxygen Flow Rate Fraction of Inspired Oxygen 12/02/24 04:00 12/02/24 04:00 12/02/24 04:00 Temperature 98.0 F Pulse Rate 94 64 Respiratory Rate 18 Blood Pressure 140/77 Pulse Oximetry 96 96 Oxygen Delivery Nasal Cannula Oxygen Flow Rate 3 Fraction of Inspired Oxygen 12/02/24 06:00 12/02/24 07:05 12/02/24 07:05 Temperature Pulse Rate 62 87 87 Respiratory Rate 18 18 Blood Pressure Pulse Oximetry 96 Oxygen Delivery Nasal Cannula Oxygen Flow Rate 3 Fraction of Inspired Oxygen 12/02/24 07:15 12/02/24 07:37 12/02/24 08:00 Temperature 97.9 F Pulse Rate 84 72 Respiratory Rate 18 18 Blood Pressure 147/73 H Pulse Oximetry 94 96 Oxygen Delivery Nasal Cannula Oxygen Flow Rate 3 Fraction of Inspired Oxygen 12/02/24 08:00 12/02/24 10:00 Temperature Pulse Rate 98 88 Respiratory Rate Blood Pressure Pulse Oximetry Oxygen Delivery Oxygen Flow Rate Fraction of Inspired Oxygen Intake/Output Intake/Output: Intake & Output 11/29/24 11/30/24 12/01/24 12/02/24 23:59 23:59 23:59 23:59 Intake Total 300 1910 356 Output Total 700 375 Balance 300 1210 -19 Meds/Results Medications: Active Medications Generic Name Dose Route Start Last Admin Trade Name Freq PRN Reason Stop Dose Admin Acetaminophen 650 mg 11/30/24 16:50 Acetaminophen 325 Mg Tablet PO Q4H PRN Mild Pain (1-3) or Fever Albuterol/Ipratropium 3 ml 11/30/24 20:00 12/02/24 07:07 Ipratropium 0.5 Mg/Albuterol Sulfate 2.5 Mg Ampul.Neb 3 Ml INHALATION 3 ml Q6HRT MARÍA Administration Benzocaine 1 lozenge 11/30/24 16:53 12/02/24 09:35 Benzocaine/Menthol (*Bkc) 18 Ea Lozenge PO 1 lozenge PRN PRN Administration Sore Throat Benzonatate 100 mg 11/30/24 16:53 12/02/24 09:34 Benzonatate 100 Mg Capsule PO 100 mg TID PRN Administration Cough Enoxaparin Sodium 40 mg 12/01/24 09:00 12/02/24 09:35 Enoxaparin 40 Mg/0.4 Ml Syringe SUB-Q 40 mg DAILY MARÍA Administration Guaifenesin 600 mg 11/30/24 21:00 12/02/24 09:35 Guaifenesin 12 Hr 600 Mg Tabcr PO 600 mg Q12HR MARÍA Administration Azithromycin 500 mg in 250 mls @ 250 mls/hr 11/30/24 17:00 12/01/24 19:07 Zithromax IVPB Infused Q24H MARÍA Infusion Ceftriaxone Sodium 1 gm in 50 mls @ 100 mls/hr 11/30/24 18:00 12/01/24 18:07 Rocephin 1 Gm/Ns 50 Ml IVPB 100 mls/hr Q24H MARÍA Administration Methylprednisolone Sodium Succinate 60 mg 12/03/24 06:30 Methylprednisolone Sod Succ 125 Mg Vial IV PUSH DAILY@0630 MARÍA Nitroglycerin 0.4 mg 11/30/24 16:53 Nitroglycerin Sl 0.4 Mg Tablet SUBLINGUAL Q5MIN PRN Chest Pain Perflutren Lipid Microsphere 0 ml 11/30/24 16:53 Perflutren Lipid Microspheres 1.5 Ml Vial Diluted To 10 Ml Total Volume IV PUSH 12/03/24 16:54 ONCE PRN adequate visualization Protocol Labs Labs: Laboratory Results - last 24 hr 11/30/24 11/30/24 12/02/24 17:58 17:58 04:51 WBC RBC Hgb Hct MCV MCH MCHC RDW Plt Count MPV Immature Gran % (Auto) Neut % (Auto) Lymph % (Auto) [place] % (Auto) Eos % (Auto) Baso % (Auto) Lymph # (Auto) [place] # (Auto) Eos # (Auto) Baso # (Auto) Abs Immat Gran (auto) Absolute Neuts (auto) Absolute Nucleated RBC Nucleated RBC % Sodium 135 L Potassium 4.7 Chloride 92 L Carbon Dioxide 38 H Anion Gap 5 BUN 29 H Creatinine 0.69 L Estim Creat Clear Calc 102 Estimated GFR > 60 Glucose 145 H Calcium 8.3 L Magnesium 2.6 H Total Bilirubin 1.6 H AST 26 ALT 50 Alkaline Phosphatase 82 Total Protein 6.0 L Albumin 3.3 L Urine Osmolality Cancelled U Random Total Protein Cancelled Ur Random Sodium Cancelled Urine Creatinine Cancelled Cancelled Protein/Creat Ratio 2 Cancelled 12/02/24 04:58 WBC 8.4 RBC 5.17 Hgb 14.1 Hct 46.2 MCV 89.4 MCH 27.3 MCHC 30.5 L RDW 16.8 H Plt Count 235 MPV 9.6 Immature Gran % (Auto) 0.8 H Neut % (Auto) 95.4 H Lymph % (Auto) 1.7 L [place] % (Auto) 2.0 L Eos % (Auto) 0.0 Baso % (Auto) 0.1 L Lymph # (Auto) 0.14 L [place] # (Auto) 0.2 Eos # (Auto) 0.0 Baso # (Auto) 0.0 Abs Immat Gran (auto) 0.07 H Absolute Neuts (auto) 8.0 H Absolute Nucleated RBC 0.020 H Nucleated RBC % 0.2 Sodium Potassium Chloride Carbon Dioxide Anion Gap BUN Creatinine Estim Creat Clear Calc Estimated GFR Glucose Calcium Magnesium Total Bilirubin AST ALT Alkaline Phosphatase Total Protein Albumin Urine Osmolality U Random Total Protein Ur Random Sodium Urine Creatinine Protein/Creat Ratio 2
[2024-12-02] MEDS: AZITHROMYCIN 500 MG/NS 250 ML 500 MG/250 ML BAG 250 MG IVPB (17:20)
[2024-12-02] MEDS: ACETAMINOPHEN 325 MG TABLET 650 MG PO ×2 (17:31→23:56)
--- NOTE | 2024-12-02 18:02 | PM.CNPUL ---
Assessment and Plan Assessment and plan (1) Respiratory failure with hypoxia and hypercapnia: Qualifiers: Chronicity: acute Qualified Code(s): J96.01 - Acute respiratory failure with hypoxia; J96.02 - Acute respiratory failure with hypercapnia Code(s): J96.91 - Respiratory failure, unspecified with hypoxia; J96.92 - Respiratory failure, unspecified with hypercapnia Status: Acute Assessment and Plan: This patient, with a history of scoliosis and previous spinal corrective surgery involving dawit insertion, presented with shortness of breath due to an influenza A infection. He also experienced acute on chronic hypercapnic respiratory failure, which has responded well to noninvasive ventilatory support using BiPAP at pressures of 20/8, along with supplemental oxygen. An X-ray revealed small lungs bilaterally, with a possible right hemidiaphragm paralysis. However, the physical examination showed clear lungs. In addition to managing hypercapnic respiratory failure, the patient has been treated with steroids, likely for bronchitis or a possible asthma exacerbation. Plan: I agree with the current antibiotic regimen. We will hold Solu-Medrol for now, as there is no wheezing noted on physical examination, but may restart it if wheezing develops. A chest X-ray will be conducted in the morning to further assess the suspected right hemidiaphragm paralysis, despite both lungs appearing small on the initial X-ray. Continue with DVT prophylaxis and short-acting bronchodilator. I have adjusted the BiPAP pressures to improve the patient?s comfort during sleep, since his hypercapnia has been corrected. 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 I will continue to monitor the patient alongside you. (2) Influenza A: Code(s): J10.1 - Influenza due to other identified influenza virus with other respiratory manifestations Status: Acute (3) Kyphoscoliosis: Code(s): M41.9 - Scoliosis, unspecified Status: Acute (4) Asthma exacerbation: Qualifiers: Asthma persistence: persistent Asthma severity: moderate Qualified Code(s): J45.41 - Moderate persistent asthma with (acute) exacerbation Code(s): J45.901 - Unspecified asthma with (acute) exacerbation Status: Acute History of Present Illness History of Present Illness Consult date: 12/02/24 Chief complaint: asthma,flu a Narrative: This 64-year-old gentleman presented to [facility] five days ago with symptoms of shortness of breath and chest congestion. His medical history is notable for asthma and kyphoscoliosis, for which he underwent spinal corrective surgery in the past. He reported that he was in his usual state of health until several days before admission, when he began experiencing shortness of breath, chest congestion, and wheezing. He tested positive for influenza A. Two days following his admission to [facility], he was transferred to [facility], where he was diagnosed with acute on chronic hypercapnic respiratory failure, and imaging suggested a possible elevation of the right hemidiaphragm. The patient has been receiving treatment with BiPAP support at high pressures, supplemental oxygen, nebulized short-acting bronchodilators, and antibiotics for potential bacterial pneumonia. Currently, he is showing improvement; he has a mild cough with clear sputum but no wheezing. Upon further inquiry, the patient disclosed a history of chronic lower extremity edema but denied experiencing morning headaches or daytime somnolence. Although he has a history of kyphoscoliosis, he has not been evaluated for possible sleep-disordered breathing. Diagnosed with asthma, he uses a nebulizer no more than once or twice a month. He was a light smoker but quit many years ago. Additionally, his medical history includes rectal cancer, for which he underwent resection and now has a permanent ostomy. Review of Systems Review of Systems: All systems reviewed & are unremarkable except as noted in HPI and below (HPI and below) PMFSH Past Medical History Medical History Rectal cancer Kyphoscoliosis Asthma Surgical History Surgical History History of colostomy History of colectomy Family History Family History Father Family history of cardiovascular disease Social History Social History Smoking status: Never smoker Smoking end date: 10/10/86 Alcohol intake: current Drinks per week: 1 Substance use: current Substance use type: marijuana Last use: 2 weeks ago Do You Feel Safe in your Home?: Yes Lack of Transportation: No Lack of Food: Never True Current Housing: I Have Housing Concerned About Future Housing: No Difficulty Paying Gas/Electric Bills: No Difficulty Paying for Meds: No Currently Unemployed: No Education: Trade/Vocational Certificate Difficulty w/ Childcare or Family Care: No Spiritual care concerns: No Meds Home Medications and Allergies Home Medications ?Medication ?Instructions ?Recorded ?Confirmed ?Type lisinopril 20 mg tablet 20 mg PO DAILY 11/29/24 11/29/24 History Allergies Allergy/AdvReac Type Severity Reaction Status Date / Time Sulfa (Sulfonamide Allergy Intermediate Rash Verified 11/28/24 13:08 Antibiotics) Vital Signs Vital Signs - 24 hr 12/01/24 19:32 12/01/24 20:00 12/01/24 20:00 Temperature 36.7 C Pulse Rate 81 79 Respiratory Rate 18 Blood Pressure 159/86 H Pulse Oximetry 96 95 Oxygen Delivery Nasal Cannula Oxygen Flow Rate 3 12/01/24 21:16 12/01/24 21:20 12/01/24 21:28 Temperature Pulse Rate 75 83 Respiratory Rate 20 20 Blood Pressure Pulse Oximetry 95 Oxygen Delivery Nasal Cannula Oxygen Flow Rate 3 12/01/24 22:00 12/01/24 22:10 12/02/24 00:00 Temperature 36.4 C Pulse Rate 72 76 73 Respiratory Rate 27 H 18 Blood Pressure 149/89 H Pulse Oximetry 95 99 Oxygen Delivery BiPAP Oxygen Flow Rate 12/02/24 00:00 12/02/24 00:00 12/02/24 02:00 Temperature Pulse Rate 86 80 Respiratory Rate Blood Pressure Pulse Oximetry 95 Oxygen Delivery Nasal Cannula Oxygen Flow Rate 3 12/02/24 02:40 12/02/24 04:00 12/02/24 04:00 Temperature 36.7 C Pulse Rate 55 L 94 Respiratory Rate 20 18 Blood Pressure 140/77 Pulse Oximetry 96 96 Oxygen Delivery Nasal Cannula Oxygen Flow Rate 3 12/02/24 04:00 12/02/24 06:00 12/02/24 07:05 Temperature Pulse Rate 64 62 87 Respiratory Rate 18 Blood Pressure Pulse Oximetry 96 Oxygen Delivery Nasal Cannula Oxygen Flow Rate 3 12/02/24 07:05 12/02/24 07:15 12/02/24 07:37 Temperature 36.6 C Pulse Rate 87 84 72 Respiratory Rate 18 18 18 Blood Pressure 147/73 H Pulse Oximetry 94 Oxygen Delivery Oxygen Flow Rate 12/02/24 08:00 12/02/24 08:00 12/02/24 10:00 Temperature Pulse Rate 98 88 Respiratory Rate Blood Pressure Pulse Oximetry 96 Oxygen Delivery Nasal Cannula Oxygen Flow Rate 3 12/02/24 12:00 12/02/24 12:00 12/02/24 12:00 Temperature 36.8 C Pulse Rate 75 90 Respiratory Rate 16 Blood Pressure 159/83 H Pulse Oximetry 96 95 Oxygen Delivery Nasal Cannula Oxygen Flow Rate 3 12/02/24 13:10 12/02/24 13:20 12/02/24 14:00 Temperature Pulse Rate 92 91 109 H Respiratory Rate 20 20 Blood Pressure Pulse Oximetry Oxygen Delivery Oxygen Flow Rate 12/02/24 16:00 12/02/24 16:11 Temperature 36.7 C Pulse Rate 78 Respiratory Rate 20 Blood Pressure 150/77 H Pulse Oximetry 94 94 Oxygen Delivery Nasal Cannula Oxygen Flow Rate 3 Exam Narrative: GENERAL APPEARANCE: Well developed, well nourished, alert and cooperative, obese and appears to be in no acute distress while on supplemental oxygen via nasal cannula SKIN: Inspection of the skin reveals no rashes, ulcerations or petechiae. HEENT: Sclerae anicteric and conjunctivae pink and moist. Extraocular movements were intact and pupils were equal, round, and reactive to light. The oral mucosa, hard and soft palate, tongue and posterior pharynx were normal. NECK: Supple. JVD present There was no thyroid enlargement, and no tenderness, or masses were felt. CHEST: Posterior surgical wound scar for spinal corrective surgery LUNGS: Clear lungs bilaterally CARDIAC: There was a regular rate and rhythm without any murmurs, gallops, rubs. ABDOMEN: Soft and nontender with normal bowel sounds. There was no organomegaly. LYMPH NODES: No lymphadenopathy was appreciated in the neck. EXTREMITIES: No cyanosis, clubbing. Trace pedal edema some a whole is stasis dermatitis changes. NEUROLOGIC: Alert and oriented x 3. Normal affect. Results Laboratory Findings 12/02/24 04:58 12/02/24 04:51 ABG, PT/INR, D-dimer: ABG ABG pH 7.432 (7.350-7.450) 12/01/24 05:30 ABG pCO2 52.8 mmHg (35.0-45.0) H 12/01/24 05:30 ABG pO2 58.2 mmHg (80.0-100.0) L 12/01/24 05:30 ABG O2 Saturation 90.5 % (95.0-100.0) L 12/01/24 05:30 Abnormal lab findings: Abnormal Labs 11/30/24 11/30/24 12/01/24 17:14 18:10 05:13 MCHC 30.1 L RDW 16.8 H Immature Gran % (Auto) 0.6 H Neut % (Auto) 96.6 H Lymph % (Auto) 1.1 L [place] % (Auto) 1.6 L Baso % (Auto) 0.1 L Lymph # (Auto) 0.11 L Abs Immat Gran (auto) 0.06 H Absolute Neuts (auto) 9.3 H Absolute Nucleated RBC 0.040 H Nucleated RBC % 0.4 H ABG pCO2 61.7 H* ABG pO2 60.5 L ABG HCO3 39.4 H ABG O2 Saturation 91.0 L Sodium 136 L 136 L Chloride 92 L 90 L Carbon Dioxide > 40 H 39 H BUN 37 H 36 H Creatinine Glucose 119 H 145 H Calcium 8.2 L 8.1 L Magnesium 2.7 H Total Bilirubin Total Protein 6.0 L Albumin 3.2 L 12/01/24 12/02/24 12/02/24 05:30 04:51 04:58 MCHC 30.5 L RDW 16.8 H Immature Gran % (Auto) 0.8 H Neut % (Auto) 95.4 H Lymph % (Auto) 1.7 L [place] % (Auto) 2.0 L Baso % (Auto) 0.1 L Lymph # (Auto) 0.14 L Abs Immat Gran (auto) 0.07 H Absolute Neuts (auto) 8.0 H Absolute Nucleated RBC 0.020 H Nucleated RBC % ABG pCO2 52.8 H ABG pO2 58.2 L ABG HCO3 34.4 H ABG O2 Saturation 90.5 L Sodium 135 L Chloride 92 L Carbon Dioxide 38 H BUN 29 H Creatinine 0.69 L Glucose 145 H Calcium 8.3 L Magnesium 2.6 H Total Bilirubin 1.6 H Total Protein 6.0 L Albumin 3.3 L
[2024-12-03] VITALS (15 sets, daily range): BP systolic 150–169; BP diastolic 73–97; PULSE 57–94; RESP 14–20; TEMP 36.4–36.8; O2SAT 92–100
[2024-12-03] MEDS: IPRATROPIUM 0.5 MG/ALBUTEROL SULFATE 2.5 MG AMPUL.NEB 3 ML INHALATION ×3 (02:48→23:00)
[2024-12-03 04:54] LABS: Basophils Percent Auto 0.1 % (0.2-1.2); Hematocrit 48.4 % (42.0-52.0); Hemoglobin 14.5 g/dL (14.0-18.0); Immature Granulocyte Absolute 0.05 K/mm3 (0.00-0.031); Immature Granulocyte Percent A 0.6 % (0-0.5); Lymphocytes Absolute Auto 0.23 K/mm3 (0.9-3.2); Lymphocytes Percent Auto 2.5 % (18.3-44.2); Mean Corpuscular Hemoglobin 27.2 pg (26-34); Mean Corpuscular Volume 90.8 fl (80-100); Mean Platelet Volume 9.7 fl (7.4-10.4); Monocytes Absolute Auto 0.5 K/mm3 (0.1-0.6); Neutrophils Absolute Auto 8.2 K/mm3 (1.3-6.7); Neutrophils Percent Auto 90.8 % (45.5-73.1); Platelet Count Result 250 k/mm3 (150-375); Red Blood Count 5.33 M/mm3 (4.6-6.20); Red Cell Distribution Width 16.9 % (11.5-14.5)
[2024-12-03 05:05] LABS: Alanine Aminotransferase 74 U/L (6-50); Albumin Level 3.3 g/dL (3.5-5.1); Alkaline Phosphatase 79 U/L (38-126); Anion Gap 5 mmol/L (4-12); Aspartate Amino Transferase 38 U/L (17-59); Bilirubin,Total 1.5 mg/dL (0.2-1.3); Blood Urea Nitrogen 27 mg/dL (9-20); Calcium 8.2 mg/dL (8.4-10.2); Carbon Dioxide 36 mmol/L (22-30); Chloride 94 mmol/L (98-107); Estimated CRCL calculation 109 ml/min; Estimated Glomerular Filt Rate > 60; Glucose 115 mg/dL (65-110); Magnesium 2.7 mg/dL (1.6-2.3); Potassium 4.5 mmol/L (3.4-5.0); Sodium 135 mmol/L (137-145)
[2024-12-03 05:20] LABS: Alveolar/Arterial O2 Gradient 207.8 mmHg; Fractional Inspired Oxygen 50 %; HCO3 ABG 37.4 mEq/l (22.0-26.0); Oxygen Content ABG 19.5 %vol (16.0-22.0); Oxygen Saturation ABG 95.4 % (95.0-100.0); Oxyhemoglobin 94.4 % THb (90.0-100.0); PO2 ABG 79.1 mmHg (80.0-100.0); PO2 FiO2 Ratio Arterial Blood 1.58 %; Total Hemoglobin 14.7 g/dL (12.0-18.0); pH ABG 7.399 (7.350-7.450)
[2024-12-03 05:23] LABS: PCO2 ABG 61.9 mmHg (35.0-45.0)
[2024-12-03 05:24] LABS: Device NON-INVASIVE VENT; Modified Allen's Test Pass; Non-Invasive Vent Rate 14 /MIN; Site Drawn RIGHT RADIAL
[2024-12-03 05:25] LABS: Non-Invasive Expiratory Pressure 8 CMH2O; Non-Invasive Inspiratory Pressure 14 CMH2O
[2024-12-03] MEDS: guaiFENesin 12 HR 600 MG TABCR PO ×2 (08:49→22:08)
[2024-12-03] MEDS: ACETAMINOPHEN 325 MG TABLET 650 MG PO (08:50)
[2024-12-03] MEDS: ENOXAPARIN 40 MG/0.4 ML SYRINGE SUB-Q (08:50)
--- NOTE | 2024-12-03 10:10 | P.PNPL_ITS ---
Progress Note: A&P Assessment and Plan (1) Respiratory failure with hypoxia and hypercapnia: Qualifiers: Chronicity: acute Qualified Code(s): J96.01 - Acute respiratory failure with hypoxia; J96.02 - Acute respiratory failure with hypercapnia Code(s): J96.91 - Respiratory failure, unspecified with hypoxia; J96.92 - Respiratory failure, unspecified with hypercapnia Status: Acute Assessment and Plan: The patient's respiratory status has remained stable over the past 24 hours. He is tolerating BiPAP support with reduced pressure settings and maintains high alertness during the day with just supplemental oxygen via nasal cannula. A chest X-ray revealed bilateral effusions and scoliosis. The patient has a history of lower extremity edema, exertional dyspnea, and increasing somnolence for weeks to months prior to his hospitalization for a viral respiratory illness, suggesting chronic nocturnal hypoventilation related to his kyphoscoliosis. On physical examination, a loud P2 is noted, possibly indicative of elevated pulmonary artery systolic pressure. The presence of bilateral pleural effusions on the new chest X-ray also suggests chronic right ventricular dysfunction. Plan: Proceed with a chest CT to evaluate the extent of pleural effusions, potential pulmonary infiltrates, and the degree of kyphoscoliosis. Conduct an echocardiogram to assess for pulmonary hypertension. After these evaluations, record [facility] as the patient will likely need home ventilatory support for chronic hypercapnic respiratory failure related to his restrictive chest wall disease. Monitor cough and other respiratory symptoms. (2) Asthma exacerbation: Qualifiers: Asthma persistence: persistent Asthma severity: moderate Qualified Code(s): J45.41 - Moderate persistent asthma with (acute) exacerbation Code(s): J45.901 - Unspecified asthma with (acute) exacerbation Status: Acute (3) Influenza A: Code(s): J10.1 - Influenza due to other identified influenza virus with other respiratory manifestations Status: Acute (4) Kyphoscoliosis: Code(s): M41.9 - Scoliosis, unspecified Status: Acute Subjective Date/time seen: 12/03/24 10:10 Interval history: Patient has no new respiratory symptoms. He slept well last night while on BiPAP with a lower blood pressures. He has no wheezing or chest pain. Currently on supplemental oxygen via nasal cannula. Upon further questioning the patient admitted having some somnolence for the last few months especially the afternoon, taking naps more frequently than before. Also notice increasing shortness of breath with activities prior to influenza a viral infection. Review of Systems Review of Systems: All systems reviewed & are unremarkable except as noted in HPI and below (HPI and below) Exam Narrative: GENERAL APPEARANCE: Well developed, well nourished, alert and cooperative, obese and appears to be in no acute distress while on supplemental oxygen via nasal cannula SKIN: Inspection of the skin reveals no rashes, ulcerations or petechiae. HEENT: Sclerae anicteric and conjunctivae pink and moist. Extraocular movements were intact and pupils were equal, round, and reactive to light. The oral mucosa, hard and soft palate, tongue and posterior pharynx were normal. NECK: Supple. JVD present There was no thyroid enlargement, and no tenderness, or masses were felt. CHEST: Posterior surgical wound scar for spinal corrective surgery LUNGS: Clear lungs bilaterally CARDIAC: There was a regular rate and rhythm without any murmurs, gallops, rubs. ABDOMEN: Soft and nontender with normal bowel sounds. There was no organomegaly. LYMPH NODES: No lymphadenopathy was appreciated in the neck. EXTREMITIES: No cyanosis, clubbing. Trace pedal edema some a whole is stasis dermatitis changes. NEUROLOGIC: Alert and oriented x 3. Normal affect. Objective Data Vital Signs Vital Signs: Vital Signs - 24 hr 12/02/24 12:00 12/02/24 12:00 12/02/24 12:00 Temperature 36.8 C Pulse Rate 75 90 Respiratory Rate 16 Blood Pressure 159/83 H Pulse Oximetry 96 95 Oxygen Delivery Nasal Cannula Oxygen Flow Rate 3 Fraction of Inspired Oxygen 12/02/24 13:10 12/02/24 13:20 12/02/24 14:00 Temperature Pulse Rate 92 91 109 H Respiratory Rate 20 20 Blood Pressure Pulse Oximetry Oxygen Delivery Oxygen Flow Rate Fraction of Inspired Oxygen 12/02/24 16:00 12/02/24 16:00 12/02/24 16:11 Temperature 36.7 C Pulse Rate 70 78 Respiratory Rate 20 Blood Pressure 150/77 H Pulse Oximetry 94 94 Oxygen Delivery Nasal Cannula Oxygen Flow Rate 3 Fraction of Inspired Oxygen 12/02/24 18:00 12/02/24 20:00 12/02/24 20:00 Temperature 36.8 C Pulse Rate 69 80 Respiratory Rate 18 Blood Pressure 149/69 H Pulse Oximetry 94 96 Oxygen Delivery Nasal Cannula Oxygen Flow Rate 3 Fraction of Inspired Oxygen 12/02/24 20:00 12/02/24 20:54 12/02/24 20:55 Temperature Pulse Rate 74 84 Respiratory Rate 20 Blood Pressure Pulse Oximetry 96 Oxygen Delivery Nasal Cannula Oxygen Flow Rate 3 Fraction of Inspired Oxygen 12/02/24 21:07 12/02/24 22:00 12/02/24 23:24 Temperature Pulse Rate 91 76 86 Respiratory Rate 20 22 H Blood Pressure Pulse Oximetry 97 Oxygen Delivery BiPAP Oxygen Flow Rate Fraction of Inspired Oxygen 12/03/24 00:00 12/03/24 00:00 12/03/24 00:00 Temperature 36.4 C Pulse Rate 58 L 71 Respiratory Rate 18 Blood Pressure 152/97 H Pulse Oximetry 99 96 Oxygen Delivery BiPAP Oxygen Flow Rate Fraction of Inspired Oxygen 40 12/03/24 02:00 12/03/24 02:48 12/03/24 02:50 Temperature Pulse Rate 61 70 70 Respiratory Rate 18 18 Blood Pressure Pulse Oximetry 97 Oxygen Delivery BiPAP Oxygen Flow Rate Fraction of Inspired Oxygen 12/03/24 03:52 12/03/24 04:00 12/03/24 04:00 Temperature 36.4 C L Pulse Rate 65 74 Respiratory Rate 18 Blood Pressure 150/78 H Pulse Oximetry 96 96 Oxygen Delivery BiPAP Oxygen Flow Rate Fraction of Inspired Oxygen 40 12/03/24 05:53 12/03/24 07:45 12/03/24 08:21 Temperature 36.4 C Pulse Rate 57 L 81 Respiratory Rate 20 Blood Pressure 156/73 H Pulse Oximetry 100 96 Oxygen Delivery Nasal Cannula Oxygen Flow Rate 3 Fraction of Inspired Oxygen 12/03/24 08:21 Temperature Pulse Rate 73 Respiratory Rate 18 Blood Pressure Pulse Oximetry Oxygen Delivery Oxygen Flow Rate Fraction of Inspired Oxygen Intake/Output Intake/Output: Intake & Output 11/30/24 12/01/24 12/02/24 12/03/24 23:59 23:59 23:59 23:59 Intake Total 300 1960 1473 788 Output Total 700 1150 300 Balance 300 1260 758 488 Meds/Results Medications: Active Medications Generic Name Dose Route Start Last Admin Trade Name Freq PRN Reason Stop Dose Admin Acetaminophen 650 mg 11/30/24 16:50 12/03/24 08:50 Acetaminophen 325 Mg Tablet PO 650 mg Q4H PRN Administration Mild Pain (1-3) or Fever Albuterol/Ipratropium 3 ml 11/30/24 20:00 12/03/24 08:20 Ipratropium 0.5 Mg/Albuterol Sulfate 2.5 Mg Ampul.Neb 3 Ml INHALATION 3 ml Q6HRT JUAN ANTONIO Administration Benzocaine 1 lozenge 11/30/24 16:53 12/02/24 09:35 Benzocaine/Menthol (*Bkc) 18 Ea Lozenge PO 1 lozenge PRN PRN Administration Sore Throat Benzonatate 100 mg 11/30/24 16:53 12/02/24 20:46 Benzonatate 100 Mg Capsule PO 100 mg TID PRN Administration Cough Enoxaparin Sodium 40 mg 12/01/24 09:00 12/03/24 08:50 Enoxaparin 40 Mg/0.4 Ml Syringe SUB-Q 40 mg DAILY JUAN ANTONIO Administration Guaifenesin 600 mg 11/30/24 21:00 12/03/24 08:49 Guaifenesin 12 Hr 600 Mg Tabcr PO 600 mg Q12HR JUAN ANTONIO Administration Azithromycin 500 mg in 250 mls @ 250 mls/hr 11/30/24 17:00 12/02/24 18:20 Zithromax IVPB Infused Q24H JUAN ANTONIO Infusion Ceftriaxone Sodium 1 gm in 50 mls @ 100 mls/hr 11/30/24 18:00 12/02/24 17:50 Rocephin 1 Gm/Ns 50 Ml IVPB Infused Q24H JUAN ANTONIO Infusion Nitroglycerin 0.4 mg 11/30/24 16:53 Nitroglycerin Sl 0.4 Mg Tablet SUBLINGUAL Q5MIN PRN Chest Pain Perflutren Lipid Microsphere 0 ml 11/30/24 16:53 Perflutren Lipid Microspheres 1.5 Ml Vial Diluted To 10 Ml Total Volume IV PUSH 12/03/24 16:54 ONCE PRN adequate visualization Protocol Radiology Results: ITS Impressions Chest X-Ray 12/03/24 06:51 Impression: [id number] bilateral pleural effusions with moderate pulmonary edema pattern. Correlate clinically for infection. Labs Labs: Laboratory Results - last 24 hr 12/03/24 12/03/24 04:19 05:06 WBC 9.0 RBC 5.33 Hgb 14.5 Hct 48.4 MCV 90.8 MCH 27.2 MCHC 30.0 L RDW 16.9 H Plt Count 250 MPV 9.7 Immature Gran % (Auto) 0.6 H Neut % (Auto) 90.8 H Lymph % (Auto) 2.5 L [place] % (Auto) 6.0 Eos % (Auto) 0.0 Baso % (Auto) 0.1 L Lymph # (Auto) 0.23 L [place] # (Auto) 0.5 Eos # (Auto) 0.0 Baso # (Auto) 0.0 Abs Immat Gran (auto) 0.05 H Absolute Neuts (auto) 8.2 H Absolute Nucleated RBC 0.000 Nucleated RBC % 0.0 Puncture Site Right radial ABG pH 7.399 ABG pCO2 61.9 H* ABG pO2 79.1 L ABG PO2/FiO2 Ratio 1.58 ABG HCO3 37.4 H ABG O2 Saturation 95.4 ABG O2 Content 19.5 ABG Base Excess 10.0 A-a Gradient 207.8 Oxyhemoglobin 94.4 Total Hemoglobin 14.7 O2 Delivery Device Non-invasive vent O2 Liters/Min Not Reportable Vent Rate 14 FiO2 50 Expiratory Pressure 8 Inspiratory Pressure 14 Sodium 135 L Potassium 4.5 Chloride 94 L Carbon Dioxide 36 H Anion Gap 5 BUN 27 H Creatinine 0.64 L Estim Creat Clear Calc 109 Estimated GFR > 60 Glucose 115 H Calcium 8.2 L Magnesium 2.7 H Total Bilirubin 1.5 H AST 38 ALT 74 H Alkaline Phosphatase 79 Total Protein 6.0 L Albumin 3.3 L
--- NOTE | 2024-12-03 12:05 | PM.IMPN ---
Progress Note: A&P Assessment and Plan (1) Respiratory failure with hypoxia and hypercapnia: Qualifiers: Chronicity: acute Qualified Code(s): J96.01 - Acute respiratory failure with hypoxia; J96.02 - Acute respiratory failure with hypercapnia Code(s): J96.91 - Respiratory failure, unspecified with hypoxia; J96.92 - Respiratory failure, unspecified with hypercapnia Status: Acute Assessment and Plan: - CXR: Elevation the right hemidiaphragm with decreased right lung volume and focal opacity at the medial right lower lung zone which could represent associated atelectasis although differential includes pneumonia. - EKG, initial:? Sinus rhythm with PACs, LVH with ST-T change, borderline R-wave progression anterior leads, minimal Q-waves inferior/high lateral leads, ST-T-wave abnormality in inferior leads consider ischemia. - flu A positive on 11/28 - ABG, most recent (11/30 at 0700):? pH 7.41, pCO2 56.9, pO2 75.9, HCO3 35.2, O2 sat 95.4 % on BiPAP. ? Peak CO2 at 91.4 on 11/29 - pulmonary consulted - continue BiPAP, settings adjusted. Repeat ABG 11/29 2:7.4 3//34 - DuoNeb and Solu-Medrol maría - continue Ceftriaxone, Azithromycin Continue BiPAP at night Recheck ABG with pCO2 in 61 Lower steroid to once daily 12/02/2024 Stop steroid today as recommended by Pulmonary Suspected related to underlying restrictive lung disease from history of scoliosis (2) Pneumonia: Qualifiers: Pneumonia type: due to influenza A virus Qualified Code(s): J10.00 - Influenza due to other identified influenza virus with unspecified type of pneumonia Code(s): J18.9 - Pneumonia, unspecified organism Status: Acute Assessment and Plan: - CXR c/f focal opacity of the medial right lower lung zone - risk factors and complicating factors:? Hypercapnia, Flu A, Kyphoscoliosis - started on CAP tx: ?ceftriaxone and azithromycin on 11/29 - MRSA PCR negative and sputum culture pending - currently requiring BiPAP for hypercapnia at night - supportive care Pulmonary consulted Switch antibiotics to oral CT chest has been ordered (3) Hyponatremia: Code(s): E87.1 - Hypo-osmolality and hyponatremia Status: Acute Assessment and Plan: - Na 121, previously 141 on 11/29/24. - add serum osmolality, urine osmolality, urine sodium, protein to creatinine ratio, urine creatinine - repeat bmp was 136 unclear reason for 1 record of hyponatremia. - d/c Tamiflu, known rare SE of hyponatremia -sodium level continues to remain stable Discussed resuming Tamiflu and patient agreeable however later refused (4) Elevated troponin: Code(s): R79.89 - Other specified abnormal findings of blood chemistry Status: Acute Assessment and Plan: - EKG, initial: Sinus rhythm with PACs, LVH with ST-T change, borderline R-wave progression anterior leads, minimal Q-waves inferior/high lateral leads, ST-T-wave abnormality in inferior leads consider ischemia. - Troponin, high sensitivity: 78.9-> 85.5-> 66.4, repeat troponin negative - BNP 4042 - SL nitro PRN - no echo or stress test on file, echo ordered - telemetry monitoring - DDx: elevated troponin secondary to hypoxia v new CHF v NSTEMI (5) Influenza A: Code(s): J10.1 - Influenza due to other identified influenza virus with other respiratory manifestations Status: Acute Assessment and Plan: - tested positive for influenza A on 11/28, however had symptoms since 11/21 - Tamiflu 75 mg BID, started on 11/28. d/c'd due to acute hyponatremia??. - supportive care: ? Tylenol p.r.n. ? Mucinex maría ? DuoNeb p.r.n. ? [place] Perles p.r.n. ? Lozenge p.r.n - monitor WBC/CBC Restart Tamiflu will continue to monitor sodium level however patient refused (6) Asthma: Qualifiers: Asthma severity: mild Asthma persistence: intermittent Asthma complication type: with acute exacerbation Qualified Code(s): J45.21 - Mild intermittent asthma with (acute) exacerbation Code(s): J45.909 - Unspecified asthma, uncomplicated Status: Acute Assessment and Plan: - longstanding history of very mild intermittent asthma with acute exacerbation secondary to influenza/pneumonia - pulmonology consulted - Rachel scheduled - Solu-Medrol 60 mg IV q.6 Lower steroid once a day and now will be stopped Plan Diet:? Heart healthy GI Prophylaxis: ?Not currently indicated DVT Prophylaxis: ?Lovenox SQ Lines: ?Peripheral Code Status:? Full code Subjective Date/time seen: 12/03/24 12:05 Interval history: Seen by Pulmonary last night. BiPAP setting was changed. ABG reviewed. Discussed with Pulmonary. Not much cough. Breathing has improved. Review of Systems Review of Systems: All systems reviewed & are unremarkable except as noted in HPI and below Exam Narrative: General: In no acute distress, well nourished alert and oriented x3 Cardiac: Normal S1 and S2. No murmur, gallops or friction rubs, peripheral pulses intact. Respiratory: Coarse breath sounds bilaterally no adventitious lung sounds Gastrointestinal: soft, non-distended, non-tender, normoactive bowel sounds. : voiding without difficulty. Extremities: moves all extremities well, no edema Skin: bridge of nose red, blanchable-- Band-Aid in place Neuro: Alert and oriented x4 Objective Data Vital Signs Vital Signs: Vital Signs - 24 hr 12/02/24 13:10 12/02/24 13:20 12/02/24 14:00 Temperature Pulse Rate 92 91 109 H Respiratory Rate 20 20 Blood Pressure Pulse Oximetry Oxygen Delivery Oxygen Flow Rate Fraction of Inspired Oxygen 12/02/24 16:00 12/02/24 16:00 12/02/24 16:11 Temperature 98.1 F Pulse Rate 70 78 Respiratory Rate 20 Blood Pressure 150/77 H Pulse Oximetry 94 94 Oxygen Delivery Nasal Cannula Oxygen Flow Rate 3 Fraction of Inspired Oxygen 12/02/24 18:00 12/02/24 20:00 12/02/24 20:00 Temperature 98.3 F Pulse Rate 69 80 Respiratory Rate 18 Blood Pressure 149/69 H Pulse Oximetry 94 96 Oxygen Delivery Nasal Cannula Oxygen Flow Rate 3 Fraction of Inspired Oxygen 12/02/24 20:00 12/02/24 20:54 12/02/24 20:55 Temperature Pulse Rate 74 84 Respiratory Rate 20 Blood Pressure Pulse Oximetry 96 Oxygen Delivery Nasal Cannula Oxygen Flow Rate 3 Fraction of Inspired Oxygen 12/02/24 21:07 12/02/24 22:00 12/02/24 23:24 Temperature Pulse Rate 91 76 86 Respiratory Rate 20 22 H Blood Pressure Pulse Oximetry 97 Oxygen Delivery BiPAP Oxygen Flow Rate Fraction of Inspired Oxygen 12/03/24 00:00 12/03/24 00:00 12/03/24 00:00 Temperature 97.6 F Pulse Rate 58 L 71 Respiratory Rate 18 Blood Pressure 152/97 H Pulse Oximetry 99 96 Oxygen Delivery BiPAP Oxygen Flow Rate Fraction of Inspired Oxygen 40 12/03/24 02:00 12/03/24 02:48 12/03/24 02:50 Temperature Pulse Rate 61 70 70 Respiratory Rate 18 18 Blood Pressure Pulse Oximetry 97 Oxygen Delivery BiPAP Oxygen Flow Rate Fraction of Inspired Oxygen 12/03/24 03:52 12/03/24 04:00 12/03/24 04:00 Temperature 97.5 F L Pulse Rate 65 74 Respiratory Rate 18 Blood Pressure 150/78 H Pulse Oximetry 96 96 Oxygen Delivery BiPAP Oxygen Flow Rate Fraction of Inspired Oxygen 40 12/03/24 05:53 12/03/24 07:45 12/03/24 08:00 Temperature 97.6 F Pulse Rate 57 L 81 Respiratory Rate 20 Blood Pressure 156/73 H Pulse Oximetry 100 98 Oxygen Delivery Nasal Cannula Oxygen Flow Rate 3 Fraction of Inspired Oxygen 12/03/24 08:00 12/03/24 08:21 12/03/24 08:21 Temperature Pulse Rate 94 73 Respiratory Rate 18 Blood Pressure Pulse Oximetry 96 Oxygen Delivery Nasal Cannula Oxygen Flow Rate 3 Fraction of Inspired Oxygen 12/03/24 10:00 Temperature Pulse Rate 79 Respiratory Rate Blood Pressure Pulse Oximetry Oxygen Delivery Oxygen Flow Rate Fraction of Inspired Oxygen Intake/Output Intake/Output: Intake & Output 11/30/24 12/01/24 12/02/24 12/03/24 23:59 23:59 23:59 23:59 Intake Total 300 1960 1473 788 Output Total 700 1150 300 Balance 300 1260 323 488 Meds/Results Medications: Active Medications Generic Name Dose Route Start Last Admin Trade Name Freq PRN Reason Stop Dose Admin Acetaminophen 650 mg 11/30/24 16:50 12/03/24 08:50 Acetaminophen 325 Mg Tablet PO 650 mg Q4H PRN Administration Mild Pain (1-3) or Fever Albuterol/Ipratropium 3 ml 11/30/24 20:00 12/03/24 08:20 Ipratropium 0.5 Mg/Albuterol Sulfate 2.5 Mg Ampul.Neb 3 Ml INHALATION 3 ml Q6HRT MARÍA Administration Amoxicillin/Clavulanate Potassium 1 tablet 12/03/24 19:00 Amoxicillin/Clavulanate K 875-125 Mg Tab PO 12/05/24 09:01 Q12HR MARÍA Benzocaine 1 lozenge 11/30/24 16:53 12/02/24 09:35 Benzocaine/Menthol (*Bkc) 18 Ea Lozenge PO 1 lozenge PRN PRN Administration Sore Throat Benzonatate 100 mg 11/30/24 16:53 12/02/24 20:46 Benzonatate 100 Mg Capsule PO 100 mg TID PRN Administration Cough Enoxaparin Sodium 40 mg 12/01/24 09:00 12/03/24 08:50 Enoxaparin 40 Mg/0.4 Ml Syringe SUB-Q 40 mg DAILY MARÍA Administration Guaifenesin 600 mg 11/30/24 21:00 12/03/24 08:49 Guaifenesin 12 Hr 600 Mg Tabcr PO 600 mg Q12HR MARÍA Administration Nitroglycerin 0.4 mg 11/30/24 16:53 Nitroglycerin Sl 0.4 Mg Tablet SUBLINGUAL Q5MIN PRN Chest Pain Perflutren Lipid Microsphere 0 ml 11/30/24 16:53 Perflutren Lipid Microspheres 1.5 Ml Vial Diluted To 10 Ml Total Volume IV PUSH 12/03/24 16:54 ONCE PRN adequate visualization Protocol Perflutren Lipid Microsphere 0 ml 12/03/24 10:18 Perflutren Lipid Microspheres 1.5 Ml Vial Diluted To 10 Ml Total Volume IV PUSH 12/06/24 10:18 ONCE PRN adequate visualization Protocol Radiology Results: ITS Impressions Chest X-Ray 12/03/24 06:51 Impression: [id number] bilateral pleural effusions with moderate pulmonary edema pattern. Correlate clinically for infection. Labs Labs: Laboratory Results - last 24 hr 12/03/24 12/03/24 04:19 05:06 WBC 9.0 RBC 5.33 Hgb 14.5 Hct 48.4 MCV 90.8 MCH 27.2 MCHC 30.0 L RDW 16.9 H Plt Count 250 MPV 9.7 Immature Gran % (Auto) 0.6 H Neut % (Auto) 90.8 H Lymph % (Auto) 2.5 L [place] % (Auto) 6.0 Eos % (Auto) 0.0 Baso % (Auto) 0.1 L Lymph # (Auto) 0.23 L [place] # (Auto) 0.5 Eos # (Auto) 0.0 Baso # (Auto) 0.0 Abs Immat Gran (auto) 0.05 H Absolute Neuts (auto) 8.2 H Absolute Nucleated RBC 0.000 Nucleated RBC % 0.0 Puncture Site Right radial ABG pH 7.399 ABG pCO2 61.9 H* ABG pO2 79.1 L ABG PO2/FiO2 Ratio 1.58 ABG HCO3 37.4 H ABG O2 Saturation 95.4 ABG O2 Content 19.5 ABG Base Excess 10.0 A-a Gradient 207.8 Oxyhemoglobin 94.4 Total Hemoglobin 14.7 O2 Delivery Device Non-invasive vent O2 Liters/Min Not Reportable Vent Rate 14 FiO2 50 Expiratory Pressure 8 Inspiratory Pressure 14 Sodium 135 L Potassium 4.5 Chloride 94 L Carbon Dioxide 36 H Anion Gap 5 BUN 27 H Creatinine 0.64 L Estim Creat Clear Calc 109 Estimated GFR > 60 Glucose 115 H Calcium 8.2 L Magnesium 2.7 H Total Bilirubin 1.5 H AST 38 ALT 74 H Alkaline Phosphatase 79 Total Protein 6.0 L Albumin 3.3 L
--- NOTE | 2024-12-03 12:40 | PC.NURSE ---
This patient, Ricky Lovell, was received from [[id number]] on 12/03/24 at 1235. Patient/family oriented to unit policies and routines
--- NOTE | 2024-12-03 13:25 | PC.NURSE ---
Report given and patient transferred at approximately 1228 via bed. 3L NC, IV Saline locked. Personal belongings brought to new room and left at bedside.
--- NOTE | 2024-12-03 14:11 | PCRCNOTE ---
Home NIV order and paperwork faxed to [facility]. Dr. Ward would like the patient to be set-up in the hospital prior to discharge.
--- NOTE | 2024-12-03 15:29 | PCRCNOTE ---
Window of time for administration has passed. See next scheduled administration.
[2024-12-03] MEDS: AMOXICILLIN/CLAVULANATE K 875-125 MG TAB 1 TABLET PO (17:27)
[2024-12-03] MEDS: lisinopriL 20 MG TABLET PO (22:09)
[2024-12-03] MEDS: ACETYLCYSTEINE 20% INHAL SOLN 800 MG/4 ML VIAL 200 MG INHALATION (23:00)
[2024-12-04] VITALS (13 sets, daily range): BP systolic 152–163; BP diastolic 74–96; PULSE 79–114; RESP 14–20; TEMP 35.9–36.9; O2SAT 88–99
[2024-12-04] MEDS: IPRATROPIUM 0.5 MG/ALBUTEROL SULFATE 2.5 MG AMPUL.NEB 3 ML INHALATION ×4 (02:46→20:13)
[2024-12-04] MEDS: ACETYLCYSTEINE 20% INHAL SOLN 800 MG/4 ML VIAL 200 MG INHALATION ×4 (02:46→20:13)
[2024-12-04] MEDS: guaiFENesin 12 HR 600 MG TABCR PO ×2 (08:11→21:32)
[2024-12-04] MEDS: ENOXAPARIN 40 MG/0.4 ML SYRINGE SUB-Q (08:11)
[2024-12-04] MEDS: lisinopriL 20 MG TABLET PO (08:11)
[2024-12-04] MEDS: AMOXICILLIN/CLAVULANATE K 875-125 MG TAB 1 TABLET PO ×2 (08:11→21:32)
--- NOTE | 2024-12-04 09:23 | P.PNPL_ITS ---
Progress Note: A&P Assessment and Plan (1) Respiratory failure with hypoxia and hypercapnia: Qualifiers: Chronicity: acute Qualified Code(s): J96.01 - Acute respiratory failure with hypoxia; J96.02 - Acute respiratory failure with hypercapnia Code(s): J96.91 - Respiratory failure, unspecified with hypoxia; J96.92 - Respiratory failure, unspecified with hypercapnia Status: Acute Assessment and Plan: The patient's respiratory status has remained stable over the past 24 hours. He is tolerating BiPAP support with reduced pressure settings and maintains high alertness during the day with just supplemental oxygen via nasal cannula. A chest X-ray revealed bilateral effusions and scoliosis. Chest CT in addition to small pleural effusions and marked scoliosis showed lower lobe atelectasis bilaterally. The patient has a history of lower extremity edema, exertional dyspnea, and increasing somnolence for weeks to months prior to his hospitalization , suggesting chronic nocturnal hypoventilation related to his kyphoscoliosis. On physical examination, a loud P2 is noted, but recent echocardiogram showed no evidence of elevated pulmonary artery systolic pressure. The patient will benefit from home ventilatory support for his restrictive chest wall disease. He has exhibited signs indicative of chronic nocturnal hypoventilation, including somnolence, particularly in the early afternoon, fatigue, and lower extremity edema for several months prior to his current hospitalization. Although he responded well to BiPAP support for acute on chronic hypercapnic respiratory failure, he will require a home ventilator instead of BiPAP for ongoing home care. Home ventilators provide more comprehensive settings, allowing precise control over tidal volume, respiratory rate, and inspiratory/expiratory pressures. This level of control is especially beneficial for patients with restrictive chest wall disease who need finely tuned ventilation support to effectively manage chronic hypercapnia. Additionally, home ventilators offer higher levels of support and are often more suitable for patients with severe respiratory insufficiency who may not receive adequate support from BiPAP alone. Ideally, we would like to set up the ventilator while the patient is still in the hospital to conduct overnight oximetry measurements before discharging the patient home. The need for supplemental oxygen will also be evaluated prior to discharge. (2) Asthma exacerbation: Qualifiers: Asthma persistence: persistent Asthma severity: moderate Qualified Code(s): J45.41 - Moderate persistent asthma with (acute) exacerbation Code(s): J45.901 - Unspecified asthma with (acute) exacerbation Status: Acute (3) Influenza A: Code(s): J10.1 - Influenza due to other identified influenza virus with other respiratory manifestations Status: Acute (4) Kyphoscoliosis: Code(s): M41.9 - Scoliosis, unspecified Status: Acute Subjective Date/time seen: 12/04/24 09:23 Interval history: Patient stated he is doing better. He has no shortness of breath at rest and has been using incentive spirometry for lower lobe atelectasis. He is not febrile. Tolerating BiPAP support at night well. Review of Systems Review of Systems: All systems reviewed & are unremarkable except as noted in HPI and below (HPI and below) Exam Narrative: GENERAL APPEARANCE: Well developed, well nourished, alert and cooperative, obese and appears to be in no acute distress while on supplemental oxygen via nasal cannula SKIN: Inspection of the skin reveals no rashes, ulcerations or petechiae. HEENT: Sclerae anicteric and conjunctivae pink and moist. Extraocular movements were intact and pupils were equal, round, and reactive to light. The oral mucosa, hard and soft palate, tongue and posterior pharynx were normal. NECK: Supple. JVD present There was no thyroid enlargement, and no tenderness, or masses were felt. CHEST: Posterior surgical wound scar for spinal corrective surgery LUNGS: Clear lungs bilaterally CARDIAC: There was a regular rate and rhythm without any murmurs, gallops, rubs. ABDOMEN: Soft and nontender with normal bowel sounds. There was no organomegaly. LYMPH NODES: No lymphadenopathy was appreciated in the neck. EXTREMITIES: No cyanosis, clubbing. Trace pedal edema some a whole is stasis dermatitis changes. NEUROLOGIC: Alert and oriented x 3. Normal affect. Objective Data Vital Signs Vital Signs: Vital Signs - 24 hr 12/03/24 10:00 12/03/24 12:42 12/03/24 14:00 Temperature 36.8 C Pulse Rate 79 80 Respiratory Rate 16 Blood Pressure 156/83 H Pulse Oximetry 96 92 Oxygen Delivery Nasal Cannula Oxygen Flow Rate 3 12/03/24 20:00 12/03/24 20:00 12/03/24 23:04 Temperature 36.6 C Pulse Rate 71 Respiratory Rate 14 Blood Pressure 169/90 H Pulse Oximetry 92 94 94 Oxygen Delivery Nasal Cannula Nasal Cannula Oxygen Flow Rate 3 3 12/03/24 23:04 12/04/24 03:04 12/04/24 06:00 Temperature 36.3 C L Pulse Rate 72 79 101 H Respiratory Rate 18 14 18 Blood Pressure 163/96 H Pulse Oximetry 90 Oxygen Delivery Oxygen Flow Rate 12/04/24 08:00 Temperature Pulse Rate Respiratory Rate Blood Pressure Pulse Oximetry 90 Oxygen Delivery Nasal Cannula Oxygen Flow Rate 3 Intake/Output Intake/Output: Intake & Output 12/01/24 12/02/24 12/03/24 12/04/24 23:59 23:59 23:59 23:59 Intake Total 1960 1473 1148 240 Output Total 700 1150 525 Balance 1260 323 623 240 Meds/Results Medications: Active Medications Generic Name Dose Route Start Last Admin Trade Name Freq PRN Reason Stop Dose Admin Acetaminophen 650 mg 11/30/24 16:50 12/03/24 08:50 Acetaminophen 325 Mg Tablet PO 650 mg Q4H PRN Administration Mild Pain (1-3) or Fever Acetylcysteine 200 mg 12/03/24 14:00 12/04/24 09:22 Acetylcysteine 20% Inhal Soln 800 Mg/4 Ml Vial INHALATION 200 mg Q6HRT JUAN ANTONIO Administration Albuterol/Ipratropium 3 ml 11/30/24 20:00 12/04/24 09:22 Ipratropium 0.5 Mg/Albuterol Sulfate 2.5 Mg Ampul.Neb 3 Ml INHALATION 3 ml Q6HRT JUAN ANTONIO Administration Amoxicillin/Clavulanate Potassium 1 tablet 12/03/24 19:00 12/04/24 08:11 Amoxicillin/Clavulanate K 875-125 Mg Tab PO 12/05/24 09:01 1 tablet Q12HR JUAN ANTONIO Administration Benzocaine 1 lozenge 11/30/24 16:53 12/02/24 09:35 Benzocaine/Menthol (*Bkc) 18 Ea Lozenge PO 1 lozenge PRN PRN Administration Sore Throat Benzonatate 100 mg 11/30/24 16:53 12/02/24 20:46 Benzonatate 100 Mg Capsule PO 100 mg TID PRN Administration Cough Enoxaparin Sodium 40 mg 12/01/24 09:00 12/04/24 08:11 Enoxaparin 40 Mg/0.4 Ml Syringe SUB-Q 40 mg DAILY JUAN ANTONIO Administration Guaifenesin 600 mg 11/30/24 21:00 12/04/24 08:11 Guaifenesin 12 Hr 600 Mg Tabcr PO 600 mg Q12HR JUAN ANTONIO Administration Lisinopril 20 mg 12/04/24 09:00 12/04/24 08:11 Lisinopril 20 Mg Tablet PO 20 mg QAM JUAN ANTONIO Administration Nitroglycerin 0.4 mg 11/30/24 16:53 Nitroglycerin Sl 0.4 Mg Tablet SUBLINGUAL Q5MIN PRN Chest Pain Perflutren Lipid Microsphere 0 ml 12/03/24 10:18 Perflutren Lipid Microspheres 1.5 Ml Vial Diluted To 10 Ml Total Volume IV PUSH 12/06/24 10:18 ONCE PRN adequate visualization Protocol Radiology Results: ITS Impressions Chest X-Ray 12/03/24 06:51 Impression: [id number] bilateral pleural effusions with moderate pulmonary edema pattern. Correlate clinically for infection. Chest CT 12/03/24 12:08 IMPRESSION: 1. Complete collapse of the right middle and lower lobes and partial collapse of the left lower lobe without evident obstructing lesions. 2. Trace bilateral pleural effusions. 3. Enlargement of the central pulmonary arteries consistent with pulmonary arterial hypertension. 4. 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 Chronic fracture of a right- sided Sampson dawit for fixation of a partially visualized thoracolumbar posterior spinal fusion.
--- NOTE | 2024-12-04 12:54 | P.PNIM_ITS ---
Progress Note: A&P Assessment and Plan (1) Respiratory failure with hypoxia and hypercapnia: Qualifiers: Chronicity: acute Qualified Code(s): J96.01 - Acute respiratory failure with hypoxia; J96.02 - Acute respiratory failure with hypercapnia Code(s): J96.91 - Respiratory failure, unspecified with hypoxia; J96.92 - Respiratory failure, unspecified with hypercapnia Status: Acute Assessment and Plan: - CXR: Elevation the right hemidiaphragm with decreased right lung volume and focal opacity at the medial right lower lung zone which could represent associated atelectasis although differential includes pneumonia. - EKG, initial:? Sinus rhythm with PACs, LVH with ST-T change, borderline R-wave progression anterior leads, minimal Q-waves inferior/high lateral leads, ST-T-wave abnormality in inferior leads consider ischemia. - flu A positive on 11/28 - ABG, most recent (11/30 at 0700):? pH 7.41, pCO2 56.9, pO2 75.9, HCO3 35.2, O2 sat 95.4 % on BiPAP. ? Peak CO2 at 91.4 on 11/29 - pulmonary consulted - continue BiPAP, settings adjusted. Repeat ABG 11/29 2:7.4 3/58/34 - DuoNeb and Solu-Medrol maría - continue Ceftriaxone, Azithromycin Continue BiPAP at night Recheck ABG with pCO2 in 61 Lower steroid to once daily 12/02/2024 and now stopped Suspected related to underlying restrictive lung disease from history of scoliosis CT chest 12/03/2024 with complete collapse of the right middle and lower lobes and partial collapse of the left lower lobe without evident obstructing lesions. Trace bilateral pleural effusions. Plan for trilogy at discharge per Pulmonary (2) Pneumonia: Qualifiers: Pneumonia type: due to influenza A virus Qualified Code(s): J10.00 - Influenza due to other identified influenza virus with unspecified type of pneumonia Code(s): J18.9 - Pneumonia, unspecified organism Status: Acute Assessment and Plan: - CXR c/f focal opacity of the medial right lower lung zone - risk factors and complicating factors:? Hypercapnia, Flu A, Kyphoscoliosis - started on CAP tx: ?ceftriaxone and azithromycin on 11/29 - MRSA PCR negative and sputum culture pending - currently requiring BiPAP for hypercapnia at night - supportive care Pulmonary consulted Switch antibiotics to oral CT chest 12/03/2024 with complete collapse of the right middle and lower lobes and partial collapse of the left lower lobe without evident obstructing lesions. Trace bilateral (3) Hyponatremia: Code(s): E87.1 - Hypo-osmolality and hyponatremia Status: Acute Assessment and Plan: - Na 121, previously 141 on 11/29/24. - add serum osmolality, urine osmolality, urine sodium, protein to creatinine ratio, urine creatinine - repeat bmp was 136 unclear reason for 1 record of hyponatremia. - d/c Tamiflu, known rare SE of hyponatremia -sodium level continues to remain stable Discussed resuming Tamiflu and patient agreeable however later refused (4) Elevated troponin: Code(s): R79.89 - Other specified abnormal findings of blood chemistry Status: Acute Assessment and Plan: - EKG, initial: Sinus rhythm with PACs, LVH with ST-T change, borderline R-wave progression anterior leads, minimal Q-waves inferior/high lateral leads, ST-T-wave abnormality in inferior leads consider ischemia. - Troponin, high sensitivity: 78.9-> 85.5-> 66.4, repeat troponin negative - BNP 4042 - SL nitro PRN - no echo or stress test on file, echo ordered - telemetry monitoring - DDx: elevated troponin secondary to hypoxia v new CHF v NSTEMI (5) Influenza A: Code(s): J10.1 - Influenza due to other identified influenza virus with other respiratory manifestations Status: Acute Assessment and Plan: - tested positive for influenza A on 11/28, however had symptoms since 11/21 - Tamiflu 75 mg BID, started on 11/28. d/c'd due to acute hyponatremia??. - supportive care: ? Tylenol p.r.n. ? Mucinex maría ? DuoNeb p.r.n. ? Tessalon Perles p.r.n. ? Lozenge p.r.n - monitor WBC/CBC Restart Tamiflu will continue to monitor sodium level however patient refused (6) Asthma: Qualifiers: Asthma severity: mild Asthma persistence: intermittent Asthma complication type: with acute exacerbation Qualified Code(s): J45.21 - Mild intermittent asthma with (acute) exacerbation Code(s): J45.909 - Unspecified asthma, uncomplicated Status: Acute Assessment and Plan: - longstanding history of very mild intermittent asthma with acute exacerbation secondary to influenza/pneumonia - pulmonology consulted - Rachel scheduled - Solu-Medrol 60 mg IV q.6 Lower steroid once a day and now stopped Plan Diet:? Heart healthy GI Prophylaxis: ?Not currently indicated DVT Prophylaxis: ?Lovenox SQ Lines: ?Peripheral Code Status:? Full code Subjective Date/time seen: 12/04/24 12:54 Interval history: No new complaints. Discussed with Pulmonary. Denies any shortness of breath or chest pain. Still on 3 L oxygen. Review of Systems Review of Systems: All systems reviewed & are unremarkable except as noted in HPI and below Exam Narrative: General: In no acute distress, well nourished alert and oriented x3 Cardiac: Normal S1 and S2. No murmur, gallops or friction rubs, peripheral pulses intact. Respiratory: Coarse breath sounds bilaterally no adventitious lung sounds Gastrointestinal: soft, non-distended, non-tender, normoactive bowel sounds. : voiding without difficulty. Extremities: moves all extremities well, no edema Skin: No rash Neuro: Alert and oriented x4 Objective Data Vital Signs Vital Signs: Vital Signs - 24 hr 12/03/24 14:00 12/03/24 20:00 12/03/24 20:00 Temperature 98.3 F 97.8 F Pulse Rate 80 71 Respiratory Rate 16 14 Blood Pressure 156/83 H 169/90 H Pulse Oximetry 92 92 94 Oxygen Delivery Nasal Cannula Oxygen Flow Rate 3 12/03/24 23:04 12/03/24 23:04 12/04/24 03:04 Temperature Pulse Rate 72 79 Respiratory Rate 18 14 Blood Pressure Pulse Oximetry 94 Oxygen Delivery Nasal Cannula Oxygen Flow Rate 12/04/24 06:00 12/04/24 08:00 12/04/24 09:23 Temperature 97.4 F L Pulse Rate 101 H 109 H Respiratory Rate 18 20 Blood Pressure 163/96 H Pulse Oximetry 90 90 88 L Oxygen Delivery Nasal Cannula Room Air Oxygen Flow Rate 3 12/04/24 09:23 12/04/24 09:37 Temperature Pulse Rate 109 H 114 H Respiratory Rate 20 20 Blood Pressure Pulse Oximetry Oxygen Delivery Oxygen Flow Rate Intake/Output Intake/Output: Intake & Output 12/01/24 12/02/24 12/03/24 12/04/24 23:59 23:59 23:59 23:59 Intake Total 1960 1473 1148 480 Output Total 700 1150 525 Balance 1260 323 623 480 Meds/Results Medications: Active Medications Generic Name Dose Route Start Last Admin Trade Name Freq PRN Reason Stop Dose Admin Acetaminophen 650 mg 11/30/24 16:50 12/03/24 08:50 Acetaminophen 325 Mg Tablet PO 650 mg Q4H PRN Administration Mild Pain (1-3) or Fever Acetylcysteine 200 mg 12/03/24 14:00 12/04/24 09:22 Acetylcysteine 20% Inhal Soln 800 Mg/4 Ml Vial INHALATION 200 mg Q6HRT MARÍA Administration Albuterol/Ipratropium 3 ml 11/30/24 20:00 12/04/24 09:22 Ipratropium 0.5 Mg/Albuterol Sulfate 2.5 Mg Ampul.Neb 3 Ml INHALATION 3 ml Q6HRT MARÍA Administration Amoxicillin/Clavulanate Potassium 1 tablet 12/03/24 19:00 12/04/24 08:11 Amoxicillin/Clavulanate K 875-125 Mg Tab PO 12/05/24 09:01 1 tablet Q12HR MARÍA Administration Benzocaine 1 lozenge 11/30/24 16:53 12/02/24 09:35 Benzocaine/Menthol (*Bkc) 18 Ea Lozenge PO 1 lozenge PRN PRN Administration Sore Throat Benzonatate 100 mg 11/30/24 16:53 12/02/24 20:46 Benzonatate 100 Mg Capsule PO 100 mg TID PRN Administration Cough Enoxaparin Sodium 40 mg 12/01/24 09:00 12/04/24 08:11 Enoxaparin 40 Mg/0.4 Ml Syringe SUB-Q 40 mg DAILY MARÍA Administration Guaifenesin 600 mg 11/30/24 21:00 12/04/24 08:11 Guaifenesin 12 Hr 600 Mg Tabcr PO 600 mg Q12HR MARÍA Administration Lisinopril 20 mg 12/04/24 09:00 12/04/24 08:11 Lisinopril 20 Mg Tablet PO 20 mg QAM MARÍA Administration Nitroglycerin 0.4 mg 11/30/24 16:53 Nitroglycerin Sl 0.4 Mg Tablet SUBLINGUAL Q5MIN PRN Chest Pain Perflutren Lipid Microsphere 0 ml 12/03/24 10:18 Perflutren Lipid Microspheres 1.5 Ml Vial Diluted To 10 Ml Total Volume IV PUSH 12/06/24 10:18 ONCE PRN adequate visualization Protocol Radiology Results: ITS Impressions Chest X-Ray 12/03/24 06:51 Impression: [id number] bilateral pleural effusions with moderate pulmonary edema pattern. Correlate clinically for infection. Chest CT 12/03/24 12:08 IMPRESSION: 1. Complete collapse of the right middle and lower lobes and partial collapse of the left lower lobe without evident obstructing lesions. 2. Trace bilateral pleural effusions. 3. Enlargement of the central pulmonary arteries consistent with pulmonary arterial hypertension. 4. 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 Chronic fracture of a right- sided Sampson dawit for fixation of a partially visualized thoracolumbar posterior spinal fusion.
[2024-12-05] VITALS (13 sets, daily range): BP systolic 130–140; BP diastolic 80–90; PULSE 78–103; RESP 14–18; TEMP 36.3–36.5; O2SAT 87–97
--- NOTE | 2024-12-05 02:02 | PCRCNOTE ---
0200 neb tx was omitted due to oximetry study on home cpap unit
[2024-12-05] MEDS: ACETYLCYSTEINE 20% INHAL SOLN 800 MG/4 ML VIAL 200 MG INHALATION ×2 (06:45→12:45)
[2024-12-05] MEDS: IPRATROPIUM 0.5 MG/ALBUTEROL SULFATE 2.5 MG AMPUL.NEB 3 ML INHALATION ×2 (06:45→12:45)
[2024-12-05] MEDS: AMOXICILLIN/CLAVULANATE K 875-125 MG TAB 1 TABLET PO (07:55)
[2024-12-05] MEDS: guaiFENesin 12 HR 600 MG TABCR PO (07:55)
[2024-12-05] MEDS: ENOXAPARIN 40 MG/0.4 ML SYRINGE SUB-Q (07:55)
[2024-12-05] MEDS: lisinopriL 20 MG TABLET PO (07:55)
--- NOTE | 2024-12-05 08:16 | P.PNPL_ITS ---
Progress Note: A&P Assessment and Plan (1) Respiratory failure with hypoxia and hypercapnia: Qualifiers: Chronicity: acute Qualified Code(s): J96.01 - Acute respiratory failure with hypoxia; J96.02 - Acute respiratory failure with hypercapnia Code(s): J96.91 - Respiratory failure, unspecified with hypoxia; J96.92 - Respiratory failure, unspecified with hypercapnia Status: Acute Assessment and Plan: The patient's respiratory status has remained stable over the past 24 hours. He is tolerating BiPAP support with reduced pressure settings and maintains high alertness during the day with just supplemental oxygen via nasal cannula. A chest X-ray revealed bilateral effusions and scoliosis. Chest CT in addition to small pleural effusions and marked scoliosis showed lower lobe atelectasis bilaterally. The patient has a history of lower extremity edema, exertional dyspnea, and increasing somnolence for weeks to months prior to his hospitalization , suggesting chronic nocturnal hypoventilation related to his kyphoscoliosis. On physical examination, a loud P2 is noted, but recent echocardiogram showed no evidence of elevated pulmonary artery systolic pressure. The patient will benefit from home ventilatory support for his restrictive chest wall disease. He has exhibited signs indicative of chronic nocturnal hypoventilation, including somnolence, particularly in the early afternoon, fatigue, and lower extremity edema for several months prior to his current hospitalization. Although he responded well to BiPAP support for acute on chronic hypercapnic respiratory failure, he will require a home ventilator instead of BiPAP for ongoing home care. Home ventilator has been approved and used last night while the patient was undergoing ApneaLink monitoring. Patient slept well and ApneaLink showed mild oxyhemoglobin desaturation with the oxygen saturation less than 88 lasting less than 1% of entire sleep. Patient was on supplemental oxygen 1 liter/minute. Home ventilator settings were roughly as follows tidal volume 500, pressure support minimum 10 cm, pressure support maximum 30 cm, auto rate. Today's chest x-ray showed residual pleural effusions. Lungs otherwise were clear. Plan: The patient is cleared for discharge to home with a home ventilator set to current settings, supplemented by 2 liters/minute of oxygen at night. A home oxygen evaluation is necessary to assess oxygen needs at rest and during activities. The patient will continue using nebulized short-acting bronchodilators three times daily as needed, and should perform incentive spirometry three times a day for approximately one week. Antibiotics are not required at this time. A follow-up appointment at the pulmonary clinic is recommended in approximately 2-3 weeks. During this follow-up, repeat nocturnal oximetry should be conducted to evaluate the potential discontinuation of supplemental oxygen, as an improvement in cardiopulmonary status is anticipated within this period. Additionally, a repeat chest X-ray is needed to monitor the resolution of small pleural effusions noted on today?s X-ray, and pulmonary function tests should be performed to evaluate the restrictive respiratory defect associated with severe kyphoscoliosis. The patient has been given the pulmonary clinic's business card to schedule an appointment, and our scheduling racing secretary and handicapper has been informed. Please feel free to contact me with any questions. (2) Asthma exacerbation: Qualifiers: Asthma persistence: persistent Asthma severity: moderate Qualified Code(s): J45.41 - Moderate persistent asthma with (acute) exacerbation Code(s): J45.901 - Unspecified asthma with (acute) exacerbation Status: Acute (3) Influenza A: Code(s): J10.1 - Influenza due to other identified influenza virus with other respiratory manifestations Status: Acute (4) Kyphoscoliosis: Code(s): M41.9 - Scoliosis, unspecified Status: Acute Subjective Date/time seen: 12/05/24 08:16 Interval history: Patient doing better this a.m.. Fully alert this a.m., he had a very good night on the home ventilator. He stated that he slept well and he feels very refreshed. He has not slept that well for weeks prior to this intervention. He completed ApneaLink monitoring last night. Review of Systems Review of Systems: All systems reviewed & are unremarkable except as noted in HPI and below Exam Narrative: GENERAL APPEARANCE: Well developed, well nourished, alert and cooperative, obese and appears to be in no acute distress while on supplemental oxygen via nasal cannula SKIN: Inspection of the skin reveals no rashes, ulcerations or petechiae. HEENT: Sclerae anicteric and conjunctivae pink and moist. Extraocular movements were intact and pupils were equal, round, and reactive to light. The oral mucosa, hard and soft palate, tongue and posterior pharynx were normal. NECK: Supple. JVD present There was no thyroid enlargement, and no tenderness, or masses were felt. CHEST: Posterior surgical wound scar for spinal corrective surgery LUNGS: Clear lungs bilaterally CARDIAC: There was a regular rate and rhythm without any murmurs, gallops, rubs. ABDOMEN: Soft and nontender with normal bowel sounds. There was no organomegaly. LYMPH NODES: No lymphadenopathy was appreciated in the neck. EXTREMITIES: No cyanosis, clubbing. Trace pedal edema some a whole is stasis dermatitis changes. NEUROLOGIC: Alert and oriented x 3. Normal affect. Objective Data Vital Signs Vital Signs: Vital Signs - 24 hr 12/04/24 09:23 12/04/24 09:23 12/04/24 09:37 Temperature Pulse Rate 109 H 109 H 114 H Respiratory Rate 20 20 20 Blood Pressure Pulse Oximetry 88 L Oxygen Delivery Room Air Oxygen Flow Rate 12/04/24 14:00 12/04/24 15:18 12/04/24 15:28 Temperature 35.9 C L Pulse Rate 105 H 100 104 H Respiratory Rate 16 20 20 Blood Pressure 162/74 H Pulse Oximetry 95 Oxygen Delivery Oxygen Flow Rate 12/04/24 20:00 12/04/24 20:14 12/04/24 20:14 Temperature Pulse Rate 85 Respiratory Rate 20 Blood Pressure Pulse Oximetry 99 95 Oxygen Delivery Nasal Cannula Nasal Cannula Oxygen Flow Rate 3 2 12/04/24 20:32 12/04/24 21:30 12/04/24 22:00 Temperature 36.9 C Pulse Rate 91 98 Respiratory Rate 20 16 Blood Pressure 152/86 H Pulse Oximetry 99 93 Oxygen Delivery Oxygen Flow Rate 12/05/24 02:03 12/05/24 05:52 12/05/24 06:45 Temperature 36.5 C Pulse Rate 89 82 Respiratory Rate 14 18 Blood Pressure 130/80 Pulse Oximetry 93 95 91 Oxygen Delivery CPAP Nasal Cannula Oxygen Flow Rate 1 1 12/05/24 06:45 12/05/24 06:55 Temperature Pulse Rate 82 84 Respiratory Rate 18 18 Blood Pressure Pulse Oximetry Oxygen Delivery Oxygen Flow Rate Intake/Output Intake/Output: Intake & Output 12/02/24 12/03/24 12/04/24 12/05/24 23:59 23:59 23:59 23:59 Intake Total 1473 1148 720 500 Output Total 1150 525 Balance 323 623 720 500 Meds/Results Medications: Active Medications Generic Name Dose Route Start Last Admin Trade Name Freq PRN Reason Stop Dose Admin Acetaminophen 650 mg 11/30/24 16:50 12/03/24 08:50 Acetaminophen 325 Mg Tablet PO 650 mg Q4H PRN Administration Mild Pain (1-3) or Fever Acetylcysteine 200 mg 12/03/24 14:00 12/05/24 06:45 Acetylcysteine 20% Inhal Soln 800 Mg/4 Ml Vial INHALATION 200 mg Q6HRT JUAN ANTONIO Administration Albuterol/Ipratropium 3 ml 11/30/24 20:00 12/05/24 06:45 Ipratropium 0.5 Mg/Albuterol Sulfate 2.5 Mg Ampul.Neb 3 Ml INHALATION 3 ml Q6HRT JUAN ANTONIO Administration Amoxicillin/Clavulanate Potassium 1 tablet 12/03/24 19:00 12/05/24 07:55 Amoxicillin/Clavulanate K 875-125 Mg Tab PO 12/05/24 09:01 1 tablet Q12HR JUAN ANTONIO Administration Benzocaine 1 lozenge 11/30/24 16:53 12/02/24 09:35 Benzocaine/Menthol (*Bkc) 18 Ea Lozenge PO 1 lozenge PRN PRN Administration Sore Throat Benzonatate 100 mg 11/30/24 16:53 12/02/24 20:46 Benzonatate 100 Mg Capsule PO 100 mg TID PRN Administration Cough Enoxaparin Sodium 40 mg 12/01/24 09:00 12/05/24 07:55 Enoxaparin 40 Mg/0.4 Ml Syringe SUB-Q 40 mg DAILY JUAN ANTONIO Administration Guaifenesin 600 mg 11/30/24 21:00 12/05/24 07:55 Guaifenesin 12 Hr 600 Mg Tabcr PO 600 mg Q12HR JUAN ANTONIO Administration Lisinopril 20 mg 12/04/24 09:00 12/05/24 07:55 Lisinopril 20 Mg Tablet PO 20 mg QAM JUAN ANTONIO Administration Nitroglycerin 0.4 mg 11/30/24 16:53 Nitroglycerin Sl 0.4 Mg Tablet SUBLINGUAL Q5MIN PRN Chest Pain Perflutren Lipid Microsphere 0 ml 12/03/24 10:18 Perflutren Lipid Microspheres 1.5 Ml Vial Diluted To 10 Ml Total Volume IV PUSH 12/06/24 10:18 ONCE PRN adequate visualization Protocol Radiology Results: ITS Impressions Chest CT 12/03/24 12:08 IMPRESSION: 1. Complete collapse of the right middle and lower lobes and partial collapse of the left lower lobe without evident obstructing lesions. 2. Trace bilateral pleural effusions. 3. Enlargement of the central pulmonary arteries consistent with pulmonary arterial hypertension. 4. 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 Chronic fracture of a right- sided Sampson dawit for fixation of a partially visualized thoracolumbar posterior spinal fusion. Chest X-Ray 12/05/24 07:53 Impression: Central congestive change and mild bibasilar pulmonary edema.
--- NOTE | 2024-12-05 10:29 | PCRCNOTE ---
HOME O2 EVAL COMPLETE, 2L ACTIVITY AND NOCTURNAL. SET UP WITH [facility]. THEY WILL DELIVER PORTABLE CONCENTRATOR FOR DISCHARGE
--- NOTE | 2024-12-05 11:10 | P.DS_ITS ---
DS: Summary Time Spent with Patient Time attestation: Total time spent providing and/or coordinating discharge services: Discharge Plan Discharge Attending physician on discharge: Héctor Cruz Consulting providers: Leno Ward Discharging Clinician: Leon Talbot Patient Disposition: Home, Self-Care Activity: as tolerated Diet: heart healthy Discharge Instructions: Patient to follow discharge care instruction from his tamale maker and follow up as scheduled. patient is scheduled to be seen by the tamale maker in 2 weeks. patient to follow up with his primary care provider as soon as possible. patient is instructed if any symptoms worsen to go to nearest ER Patient Instructions: Antibiotic Form Patient Language: Greenlandic Stand Alone Forms: General Discharge Information Follow-up/Referrals: EvangelinaCeli, SUPPLY ANALYST [Primary Care Provider] - Leno Ward MD [Physician] - Discharge Medications: New ipratropium-albuterol 0.5 mg-3 mg(2.5 mg base)/3 mL Solution For Nebulization 3 ml inhalation Q6HRT Qty: 90 0RF Chloraseptic Sore Throat 6-10 mg Lozenge 1 barby PO PRN PRN (Reason: Sore Throat) Qty: 30 0RF guaifenesin [Mucus Relief ER] 600 mg Tablet Extended Release 12hr 600 mg PO Q12HR Qty: 60 0RF benzonatate 100 mg Capsule 100 mg PO TID PRN (Reason: Cough) Qty: 30 0RF nitroglycerin [Nitrostat] 0.4 mg Tablet, Sublingual 0.4 mg sublingual Q5MIN PRN (Reason: Chest Pain) Qty: 26 0RF Continued lisinopril 20 mg tablet 20 mg PO DAILY Qty: 30 1RF Date of admission: 11/30/24 17:39 Primary Care Provider: EvangelinaCeli Admitting Provider: Héctor Cruz Attending physician on admission: Héctor Cruz Condition: Stable
--- NOTE | 2024-12-05 11:10 | PM.DS ---
DS: Admitting Diagnosis Discharge Date 12/05/24 Admitting Diagnosis shortness of breath DS: Discharge Diagnosis Discharge Diagnosis (1) Respiratory failure with hypoxia and hypercapnia: Qualifiers: Chronicity: acute Qualified Code(s): J96.01 - Acute respiratory failure with hypoxia; J96.02 - Acute respiratory failure with hypercapnia Code(s): J96.91 - Respiratory failure, unspecified with hypoxia; J96.92 - Respiratory failure, unspecified with hypercapnia Status: Acute (2) Pneumonia: Qualifiers: Pneumonia type: due to influenza A virus Qualified Code(s): J10.00 - Influenza due to other identified influenza virus with unspecified type of pneumonia Code(s): J18.9 - Pneumonia, unspecified organism Status: Acute (3) Hyponatremia: Code(s): E87.1 - Hypo-osmolality and hyponatremia Status: Acute (4) Elevated troponin: Code(s): R79.89 - Other specified abnormal findings of blood chemistry Status: Acute (5) Influenza A: Code(s): J10.1 - Influenza due to other identified influenza virus with other respiratory manifestations Status: Acute (6) Asthma: Qualifiers: Asthma severity: mild Asthma persistence: intermittent Asthma complication type: with acute exacerbation Qualified Code(s): J45.21 - Mild intermittent asthma with (acute) exacerbation Code(s): J45.909 - Unspecified asthma, uncomplicated Status: Acute DS: Summary Hospital Course Hospital Course: 64 y/o presented with respiratory failure with hypoxia and hypercapnia was found to have pneumonia CXR: Elevation the right hemidiaphragm with decreased right lung volume and focal opacity at the medial right lower lung zone which could represent associated atelectasis although differential includes pneumonia. patient was treated for CAP with Ceftriaxone, Azithromycin, steroids, and DUO neb, for hypercapnia patient was seen by wire walker and recommended BIPAP as patient with history of scoliosis resulting hypoventilation, BIPAP will assist patient reduce pCO2 and will improve mentation and physical activities, patient tolerated the BIPAP, he is clinically stable, will discharge today. Time Spent with Patient Time attestation: Total time spent providing and/or coordinating discharge services: Discharge Plan Discharge Attending physician on discharge: Héctor Cruz Consulting providers: Leno Ward; Jayshree Merrill; Johnnie Lux; Boris Montero; Erik Christy; Jonatan Ashby Discharging Clinician: Leon Talbot Patient Disposition: Home, Self-Care Activity: as tolerated Diet: heart healthy Discharge Instructions: Patient to follow discharge care instruction from his wire walker and follow up as scheduled. patient is scheduled to be seen by the wire walker in 2 weeks. patient to follow up with his primary care provider as soon as possible. patient is instructed if any symptoms worsen to go to nearest ER Home ventilator settings were roughly as follows: tidal volume 500, pressure support minimum 10 cm, pressure support maximum 30 cm, auto rate. Plan: The patient is cleared for discharge to home with a home ventilator set to current settings, supplemented by 2 liters/minute of oxygen at night. A home oxygen evaluation showed results of room air at rest, 2L with activity, and 2L nocturnally. The patient will continue using nebulized short-acting bronchodilators three times daily as needed, and should perform incentive spirometry three times a day for approximately one week. Antibiotics are not required at this time. A follow-up appointment at the pulmonary clinic is recommended in approximately 2-3 weeks. The patient has been given the pulmonary clinic's business card to schedule an appointment, and our scheduling placement secretary has been informed. Please feel free to contact me with any questions. Patient Instructions: Ipratropium/Albuterol (By breathing), How to Use an Incentive Spirometer (DC), Influenza (DC), Pulmonary Function Tests (DC) Patient Language: Malay Stand Alone Forms: General Discharge Information Follow-up/Referrals: Dileep,Celi Underwood NP [Primary Care Provider] - Leno Ward MD [Physician] - Discharge Medications: New ipratropium-albuterol 0.5 mg-3 mg(2.5 mg base)/3 mL Solution For Nebulization 3 ml inhalation Q6HRT Qty: 90 0RF benzonatate 100 mg Capsule 100 mg PO TID PRN (Reason: Cough) Qty: 30 0RF nitroglycerin [Nitrostat] 0.4 mg Tablet, Sublingual 0.4 mg sublingual Q5MIN PRN (Reason: Chest Pain) Qty: 26 0RF Chloraseptic Sore Throat 6-10 mg Lozenge 1 barby PO PRN PRN (Reason: Sore Throat) Qty: 30 0RF guaifenesin [Mucus Relief ER] 600 mg Tablet Extended Release 12hr 600 mg PO Q12HR Qty: 60 0RF Continued lisinopril 20 mg tablet 20 mg PO DAILY Qty: 30 1RF Date of admission: 11/30/24 17:39 Primary Care Provider: DileepCeli Admitting Provider: Lit Oneill Attending physician on admission: Leon Talbot Condition: Stable
== END 2024-12-05 15:35 | disposition home or self-care (01) | DRG 193 ==
LOC: ANHIMU 16:38 → ANH3MEDSUR 12-04 12:18 → ANHIMU 12-07 11:33
PROVIDERS: Internal Medicine; Student in an Organized Health Care Education/Training Program; Admitting Provider General Practice; PCP Nurse Practitioner; Visit Provider Family Medicine
DX: J10.00 Influenza due to other identified influenza virus with unspecified type of pneumonia (principal); J96.01 Acute respiratory failure with hypoxia; J96.02 Acute respiratory failure with hypercapnia; J45.21 Mild intermittent asthma with (acute) exacerbation; E87.1 Hypo-osmolality and hyponatremia; J18.9 Pneumonia, unspecified organism; M40.209 Unspecified kyphosis, site unspecified; Z20.822 Contact with and (suspected) exposure to COVID-19; Z85.048 Personal history of other malignant neoplasm of rectum, rectosigmoid junction, and anus; Z93.3 Colostomy status; Z90.49 Acquired absence of other specified parts of digestive tract
CPT/HCPCS: 36415; 36600; 71045; 71046; 71250; 80048; 80053; 82805; 83735; 83930; 84100; 84484; 85018; 85025; 87641; 93306; 94002; 94003; 94618; 94640; 94762; A9270; G0378; J0456; J0696; J1650; J2919

== ENCOUNTER 2025-03-02 07:08 | Outpatient (CLI) | payer MEDICARE, SELFPAY ==
[2025-03-02 07:25] LABS: Basophils Absolute Auto 0.02 K/mm3 (0.00-0.10); Basophils Percent Auto 0.4 % (0.0-1.0); Eosinophils Absolute Auto 0.08 K/mm3 (0.02-0.50); Eosinophils Percent Auto 1.6 % (1.0-6.0); Hematocrit 45.3 % (40.0-54.0); Hemoglobin 14.8 g/dL (14.0-18.0); Immature Granulocyte Absolute 0.01 K/mm3 (0.00-0.00); Immature Granulocyte Percent A 0.2 % (0.0-0.0); Lymphocytes Absolute Auto 1.05 K/mm3 (1.10-4.50); Lymphocytes Percent Auto 20.9 % (18.0-42.0); Mean Corpuscular HGB Conc 32.7 g/dL (32-36); Mean Corpuscular Hemoglobin 28.7 pg (27.0-31.0); Mean Platelet Volume 9.7 fl (8.7-11.0); Monocytes Absolute Auto 0.52 K/mm3 (0.10-0.90); Monocytes Percent Auto 10.4 % (2.0-11.0); Neutrophils Absolute Auto 3.34 K/mm3 (1.70-7.20); Neutrophils Percent Auto 66.5 % (50.0-70.0); Platelet Count Result 214 K/mm3 (150-420); Red Blood Count 5.15 M/mm3 (4.70-6.10); Red Cell Distribution Width 13.4 % (11.6-14.4)
[2025-03-02 07:55] LABS: Alanine Aminotransferase 17 U/L (6-50); Alkaline Phosphatase 88 U/L (38-126); Anion Gap 3 mmol/L (4-12); Aspartate Amino Transferase 26 U/L (17-59); Blood Urea Nitrogen 20 mg/dL (9-20); Calcium 8.8 mg/dL (8.4-10.2); Carbon Dioxide 31 mmol/L (22-30); Chloride 106 mmol/L (98-107); Cholesterol 189 mg/dL (0-200); Estimated Glomerular Filt Rate > 60; Glucose 100 mg/dL (65-110); HDL Direct 52 mg/dL; LDL Cholesterol Calculated 117 mg/dL (<130); Osmolality Calculated 292 mOsm/kg (285-295); Potassium 3.9 mmol/L (3.4-5.0); Sodium 140 mmol/L (137-145); Total Protein 6.4 g/dL (6.3-8.2); Triglycerides 101 mg/dL (<150)
== END 2025-03-02 07:09 | disposition home or self-care (01) ==
LOC: CHSLAB 07:08
PROVIDERS: PCP Nurse Practitioner Family; Visit Provider Nurse Practitioner Family
DX: R73.9 Hyperglycemia, unspecified (principal); I10 Essential (primary) hypertension
CPT/HCPCS: 36415; 80053; 80061; 83036; 84443; 85025

== ENCOUNTER 2025-03-08 10:58 | Emergency (ER) | payer MEDICARE, SELFPAY ==
[2025-03-08] VITALS (26 sets, daily range): BP systolic 179–225; BP diastolic 95–126; PULSE 67–96; RESP 16–20; TEMP 37.2; O2SAT 93–98
--- NOTE | 2025-03-08 11:07 | ECG_ITS ---
Test Date: 2025-03-08 11:24:46 Measurements Intervals Keavy Rate: 80 P: 27 IN: 155 QRS: 16 QRSD: 101 T: 8 QT: 412 QTc: 477 Interpretive Statements SINUS RHYTHM LEFT VENTRICULAR HYPERTROPHY WITH ST-T CHANGE Compared to ECG 11/28/2024 13:02:56 NO SIGNIFICANT CHANGES Electronically Signed On 03-08-2025 15:01:43 CDT by Yareli Montes M.D.
--- NOTE | 2025-03-08 11:10 | ED_ITS ---
HPI - General Adult General Chief complaint: Unspecified Stated complaint: elevated blood pressure Source: patient Mode of arrival: ambulatory Limitations: no limitations History of Present Illness HPI narrative: patient is a 64-year-old male with elevated blood pressure at his primary care doctor today and recent adjustment to his medicine without success. He is on lisinopril 40 mg daily and is having a dry cough. No chest pain or shortness of breath. No headache or blurry vision. He is asymptomatic. Onset (ago): year(s) Radiation: non-radiation Severity: moderate Severity scale (1-10): 5 Quality: other ( Asymptomatic/no pain) Pain Consistency: constant Relieving factors: none and other ( recent adjustment of lisinopril has not been helpful and now has a cough) Exacerbating factors: none Associated symptoms: denies other symptoms Treatments prior to arrival: other ( BP medication) Related Data Allergies Allergy/AdvReac Type Severity Reaction Status Date / Time Sulfa (Sulfonamide Allergy Intermediate Rash Verified 03/08/25 11:05 Antibiotics) lisinopril Allergy Mild Cough Verified 03/08/25 14:17 Review of Systems 2 Review of Systems: All systems reviewed & are unremarkable except as noted in HPI and below Constitutional: Constitutional: Reports no additional constitutional complaints Eyes: Eyes: Reports no additional eye complaints ENT: Reports system reviewed and no additional complaints, except as documented Cardiovascular: Cardiovascular: Reports no additional cardiovascular complaints Respiratory: Respiratory: Reports no additional respiratory complaints Gastrointestinal: Gastrointestinal: Reports no additional gastrointestinal complaints Genitourinary: Genitourinary: Reports no additional male genitourinary complaints Musculoskeletal: Musculoskeletal: Reports no additional musculoskeletal complaints Integumentary/Breasts: Skin/Breast: Reports system reviewed and no additional complaints, except as docu Neurologic: Reports system reviewed and no additional complaints, except as documented Psychiatric: Psychiatric: Reports no additional psychiatric complaints Endocrine: Endocrine: Reports no additional endocrine complaints Hematologic/Lymphatic: Hematologic/Lymphatic: Reports no additional hematologic/lymphatic complaints Allergic/Immunologic: Allergic/Immunologic: Reports no additional allergic/immunologic complaints [facility] Past Medical History Medical History Rectal cancer Kyphoscoliosis Asthma Surgical History Surgical History History of colostomy History of colectomy Family History Family History Father Family history of cardiovascular disease Social History Social History Smoking status: Never smoker Smoking end date: 10/10/86 Alcohol intake: current Drinks per week: 1 Substance use: current Substance use type: marijuana Last use: 2 weeks ago Do You Feel Safe in your Home?: Yes Lack of Transportation: No Lack of Food: Never True Current Housing: I Have Housing Concerned About Future Housing: No Difficulty Paying Gas/Electric Bills: No Difficulty Paying for Meds: No Currently Unemployed: No Education: Trade/Vocational Certificate Difficulty w/ Childcare or Family Care: No Spiritual care concerns: No Exam 2 Const: General: cooperative, healthy appearing and comfortable HENMT: Head: normal to inspection, No palpable skull fracture present and normocephalic Eyes: General: appearance normal, both eyes and all related structures V isual Chopra: normal visual chopra by confrontation Alignment and Position: a lignment normal Neck: Neck: normal visual inspection, full ROM and no lymphadenopathy Chest: Chest palpation & inspection: normal inspection of the chest, normal palpation of entire chest wall and no localized rib tenderness Resp: Effort & Inspection: normal respiratory effort, able to speak in complete sentences and not labored Auscultation: clear to auscultation bilaterally Cardio: Jugular venous distension: no JVD Palpation: normal PMI Rate: r egular rate Rhythm: regular rhythm Heart sounds: S1 normal heart sound present and S2 normal heart sound present GI: Inspection: normal to inspection, no abdominal wall ecchymosis and no edema GI Palp: Yes Soft to palpation Auscultation: normal bowel sounds Back/Spine/Pelvis: Back: no CVA tenderness Skin: General skin exam: normal color, no rashes or lesions noted, elasticity normal and turgor normal Neuro: General: oriented to person, oriented to place, oriented to time, gait normal and moves all extremities Other: fast exam negative, NIH score 0, GCS is 15 Extrem: General: normal to inspection, full ROM and capillary refill normal Psych: Appearance: grossly normal, well kempt and not disheveled Mental Status: mental status grossly normal Course Vital Signs Vital signs: Vital Signs Temperature 37.2 C 03/08/25 10:58 Pulse Rate 96 03/08/25 10:58 Respiratory Rate 16 03/08/25 10:58 Blood Pressure 217/126 H 03/08/25 10:58 Pulse Oximetry 96 03/08/25 10:58 Oxygen Delivery Room Air 03/08/25 10:58 Temperature 37.2 C 03/08/25 10:58 Pulse Rate 72 03/08/25 13:30 Respiratory Rate 20 03/08/25 13:30 Blood Pressure 189/103 H 03/08/25 13:32 Pulse Oximetry 95 03/08/25 13:45 Oxygen Delivery Room Air 03/08/25 13:30 Medical Decision Making MDM Narrative Medical decision making narrative: patient is a 64-year-old male with chronic hypertension having continued elevated pressure today. Primary doctor sent her into the hospital for better evaluation and treatment of the blood pressure. We will treat accordingly. Will also stop lisinopril with the side effect of dry cough. Vital Signs Vital Signs: Vital Signs Temperature 37.2 C 03/08/25 10:58 Pulse Rate 96 03/08/25 10:58 Respiratory Rate 16 03/08/25 10:58 Blood Pressure 217/126 H 03/08/25 10:58 Pulse Oximetry 96 03/08/25 10:58 Oxygen Delivery Room Air 03/08/25 10:58 Temperature 37.2 C 03/08/25 10:58 Pulse Rate 72 03/08/25 13:30 Respiratory Rate 20 03/08/25 13:30 Blood Pressure 189/103 H 03/08/25 13:32 Pulse Oximetry 95 03/08/25 13:45 Oxygen Delivery Room Air 03/08/25 13:30 Lab Data Lab results reviewed: Yes I reviewed the patient's lab results. 03/08/25 11:17 03/08/25 11:17 Labs: Lab Results 03/08/25 Range/Units 11:17 WBC 5.5 (4.8-10.8) K/mm3 RBC 5.01 (4.70-6.10) M/mm3 Hgb 14.5 (14.0-18.0) g/dL Hct 43.5 (40.0-54.0) % MCV 86.8 (78.0-102.0) fL MCH 28.9 (27.0-31.0) pg MCHC 33.3 (32-36) g/dL RDW 13.1 (11.6-14.4) % Plt Count 189 (150-420) K/mm3 MPV 9.5 (8.7-11.0) fl Immature Gran % (Auto) 0.2 H (0.0-0.0) % Neut % (Auto) 73.5 H (50.0-70.0) % Lymph % (Auto) 15.5 L (18.0-42.0) % Wayne % (Auto) 9.5 (2.0-11.0) % Eos % (Auto) 1.1 (1.0-6.0) % Baso % (Auto) 0.2 (0.0-1.0) % Lymph # (Auto) 0.85 L (1.10-4.50) K/mm3 Wayne # (Auto) 0.52 (0.10-0.90) K/mm3 Eos # (Auto) 0.06 (0.02-0.50) K/mm3 Baso # (Auto) 0.01 (0.00-0.10) K/mm3 Abs Immat Gran (auto) 0.01 H (0.00-0.00) K/mm3 Absolute Neuts (auto) 4.05 (1.70-7.20) K/mm3 Absolute Nucleated RBC 0.00 (0.00-0.00) K/mm3 Nucleated RBC % 0.0 (0-0.0) % Sodium 137 (137-145) mmol/L Potassium 3.8 (3.4-5.0) mmol/L Chloride 104 (98-107) mmol/L Carbon Dioxide 29 (22-30) mmol/L Anion Gap 4 (4-12) mmol/L BUN 16 (9-20) mg/dL Creatinine 0.73 (0.7-1.3) mg/dL Estim Creat Clear Calc 97 ml/min Estimated GFR > 60 (59 - ) Glucose 102 (65-110) mg/dL Calculated Osmolality 285 (285-295) mOsm/kg Calcium 8.6 (8.4-10.2) mg/dL Total Bilirubin 1.6 H (0.2-1.3) mg/dL AST 30 (17-59) U/L ALT 21 (6-50) U/L Alkaline Phosphatase 94 (38-126) U/L Troponin I < 0.012 (0.000-0.034) ng/mL Total Protein 6.6 (6.3-8.2) g/dL Albumin 3.9 (3.5-5.1) g/dL ECG Data EKG #1: Attestation: I personally reviewed and interpreted this ECG as follows: ECG completion date: 03/08/25 ECG completion time: 12:14 EKG Interpretation: normal rate, sinus rhythm, no ectopy, no ST changes, normal QRS, normal QT and NL axis Discharge Plan Discharge Clinical Impression: Elevated blood pressure reading with diagnosis of hypertension Patient Disposition: Home Condition: Stable Instructions: Hypertension (ED) Additional Instructions: I have stopped your lisinopril due to cough. I have started losartan and Norvasc. Please take both of these medications at the same time once a day. Follow-up with your primary doctor in the next week to update them on the new medications as well as further changes needed of the medication to control blood pressure. Patient Language: Jordanian Prescriptions: New losartan 50 mg tablet 50 mg PO DAILY Qty: 30 0RF amlodipine [Norvasc] 5 mg tablet 5 mg PO DAILY Qty: 30 0RF No Action lisinopril 40 mg tablet 40 mg PO DAILY 30 Days Qty: 30 1RF Follow-up/Referrals: Dick Barker APRN [Primary Care Provider] - Time of Disposition: 14:15
[2025-03-08 11:21] LABS: Basophils Absolute Auto 0.01 K/mm3 (0.00-0.10); Basophils Percent Auto 0.2 % (0.0-1.0); Eosinophils Absolute Auto 0.06 K/mm3 (0.02-0.50); Eosinophils Percent Auto 1.1 % (1.0-6.0); Hematocrit 43.5 % (40.0-54.0); Hemoglobin 14.5 g/dL (14.0-18.0); Immature Granulocyte Absolute 0.01 K/mm3 (0.00-0.00); Immature Granulocyte Percent A 0.2 % (0.0-0.0); Lymphocytes Absolute Auto 0.85 K/mm3 (1.10-4.50); Lymphocytes Percent Auto 15.5 % (18.0-42.0); Mean Corpuscular HGB Conc 33.3 g/dL (32-36); Mean Corpuscular Hemoglobin 28.9 pg (27.0-31.0); Mean Corpuscular Volume 86.8 fL (78.0-102.0); Mean Platelet Volume 9.5 fl (8.7-11.0); Monocytes Absolute Auto 0.52 K/mm3 (0.10-0.90); Monocytes Percent Auto 9.5 % (2.0-11.0); Neutrophils Absolute Auto 4.05 K/mm3 (1.70-7.20); Neutrophils Percent Auto 73.5 % (50.0-70.0); Platelet Count Result 189 K/mm3 (150-420); Red Blood Count 5.01 M/mm3 (4.70-6.10); Red Cell Distribution Width 13.1 % (11.6-14.4); White Blood Count 5.5 K/mm3 (4.8-10.8)
[2025-03-08] MEDS: amLODIPine BESYLATE 5 MG TABLET PO (11:32)
[2025-03-08] MEDS: LOSARTAN POTASSIUM 50 MG TABLET PO (11:32)
[2025-03-08 11:37] LABS: Alanine Aminotransferase 21 U/L (6-50); Albumin Level 3.9 g/dL (3.5-5.1); Alkaline Phosphatase 94 U/L (38-126); Anion Gap 4 mmol/L (4-12); Aspartate Amino Transferase 30 U/L (17-59); Bilirubin,Total 1.6 mg/dL (0.2-1.3); Blood Urea Nitrogen 16 mg/dL (9-20); Calcium 8.6 mg/dL (8.4-10.2); Carbon Dioxide 29 mmol/L (22-30); Chloride 104 mmol/L (98-107); Estimated CRCL calculation 97 ml/min; Estimated Glomerular Filt Rate > 60; Glucose 102 mg/dL (65-110); Osmolality Calculated 285 mOsm/kg (285-295); Potassium 3.8 mmol/L (3.4-5.0); Sodium 137 mmol/L (137-145); Total Protein 6.6 g/dL (6.3-8.2)
[2025-03-08 11:49] LABS: Troponin I < 0.012 ng/mL (0.000-0.034)
[2025-03-08] MEDS: cloNIDine HCL 0.1 MG TABLET PO (12:52)
== END 2025-03-08 14:20 | disposition home or self-care (01) ==
PROVIDERS: Emergency Provider Emergency Medicine; PCP Nurse Practitioner Family
DX: I10 Essential (primary) hypertension (principal); Z85.528 Personal history of other malignant neoplasm of kidney
CPT/HCPCS: 36415; 80053; 84484; 85025; 93005; 99284; A9270

== ENCOUNTER 2025-04-10 09:38 | Outpatient (CLI) | payer MEDICARE, SELFPAY ==
--- OUTSIDE RECORDS SUMMARY | 2025-04-10 09:50 | XMS_ITS | Encounter Summary ---
Author Organization [facility] Address [address] [place] [address] Care Team Providers Care Field Artillery Operations Man Name Role Phone Celi Falk SHERLEY Primary Care Provider +1- [phone] Reason for Referral * Imaging (Routine) - Closed Specialty Diagnoses / Procedures Referred By Contac t Referred To Contact RADIOLOGY Diagnoses Rectal cancer ([facility]/HCC [facility]/HCC) Procedures CT CHEST+ABD+PEL W CON Juliano Mustafa MD [address] [place] [address] Phone: tel: fax: Referral ID Status Reason Start Date Expiration Date Visits Re quested Visits Authorized [id number] Closed 10/17/2019 11/17/2020 1 1 GER CONFIGURATION Encounter Details Date Type Department Care Team (Late st Contact Info) Description 10/17/2019 Community Orders [facility] EPICCARE LINK Juliano Mustafa MD [address] [place] [address] Social History Tobacco Use Types Packs/Day Years Used Date Smoking Tobacco: Never Assessed Sex and Gender Information Value Date Recorded Sex Assigned at Not on file Legal Sex Male 5:47 PM MANAGER CONFIGURATION Gender Identity Not on file Sexual Orientation Not on file documented as of this encounter Plan of Treatment Not on file documented as of this encounter Results * CT CHEST+ABD+PEL W CON (11/13/2019 10:41 AM MANAGER CONFIGURATION) Anatomical Region Laterality Modality Chest, Abdomen, Pelvis Computed Tomography 11/14/2019 1:44 PM MANAGER CONFIGURATION Impressions 11/14/2019 1:55 PM MANAGER CONFIGURATION Impression: 1. Stable postsurgical changes of the colon with no definite signs of recurrent neoplasm. 2. No evidence of metastatic disease within the chest, abdomen or pelvis. 3. Stable soft tissue density in the presacral space, favored to represent posttreatment changes. Interpreted By: Obey Fierro MD, 11/14/2019 1:44 PM Narrative 11/14/2019 1:55 PM MANAGER CONFIGURATION Examination: CT chest, abdomen and pelvis with [...] rectum documented in this encounter Care Teams Field Artillery Operations Man Relationship Specialty Start Date End Date Celi Falk FNP PCP - General NURSE PRACTITIONER 04/27/19 documented as of this encounter
--- OUTSIDE RECORDS SUMMARY | 2025-04-10 09:50 | XMS_ITS | Clinical Summary ---
Author Organization [facility] Address [address] [place] [address] Care Team Providers Care Hat Former Name Role Phone Celi Falk LOT WORKER Primary Care Provider +1- [phone] Allergies Active Allergy Reactions Criticality Noted Date Comments Pentoxifylline Nausea Only,Dizziness 03/18/2021 Abdominal pain Sulfa Antibiotics Hives 03/18/2021 Medications No known medications Active Problems Problem Noted Date Diagnosed Date Primary hypertension 12/13/2022 Rectal cancer metastasized t o intra-abdominal lymph node ([facility]) 03/18/2021 Social History Tobacco Use Types Packs/Day Years Used Date Smoking Tobacco: Never Smokeless Tobacco: Never Tobacco Cessation:Counseling Given: Not Answered Sex and Gender Information Value Date Recorded Sex Assigned at Not on file Legal Sex Male 5:47 PM BLOCKER AND SEWER Gender Identity Not on file Sexual Orientation Not on file Last Filed Vital Signs Vital Sign Reading Time Taken Comments Blood Pressure 198/121 12/13/2022 2:01 PM BLOCKER AND SEWER Pulse 113 12/13/2022 2:01 PM BLOCKER AND SEWER Temperature 36.2 C (97.2 F) 12/13/2022 2:01 PM BLOCKER AND SEWER Respiratory Rate 22 11/18/2021 11:45 AM BLOCKER AND SEWER Oxygen Saturation 96% 11/18/2021 11:45 AM BLOCKER AND SEWER Inhaled Oxygen Concentration - - Weight 94.4 kg (208 lb 3.2 oz) 12/13/2022 2:01 P M BLOCKER AND SEWER Height - - Body Mass Index - - Plan of Treatment Health Maintenance Due Date Last Done Comments Annual Physical 1963 Hepatitis C 1978 DTaP, Tdap and Td Vaccines ( 1 - Tdap) 1979 Pneumococcal Vaccine: 50+ Ye ars (1 of 1 - PCV) 2010 Zoster Vaccines (1 of 2) 2010 COVID-19 Vaccine (1 - 2023-2 5 season) 2024 RSV Immunization or 60+ Years (1 [...] age to complete this topic Insurance MEDICARE [facility] COMMERCIAL PAYER Care Teams Hat Former Relationship Specialty Start Date End Date Celi Falk FNP PCP - General NURSE PRACTITIONER 04/27/19
--- OUTSIDE RECORDS SUMMARY | 2025-04-10 09:50 | XMS_ITS | Patient Health Record ---
Author Organization [facility] Address [address] [place], [place] [id number] Care Team Providers Care Upholstery Cleaner Name Role Phone ADA BARRON Unavailable [phone] Celi Falk Unavailable Unavailable Reason For Referral No Information Plan Of Treatment No Information Insurance Providers Payer Name Payer Address Payer Phone Subscriber Number Group Number Insured Name Patient Relationship to Insured Coverage Start Date Coverage End Date Medicare Part B [facility] [address] [place] [id number] CHIRSTOPHER BALLESTEROS Self - patient is the insured [address] [address] [id number] CHRISTOPHER BALLESTEROS Self - patient is the insured
[2025-04-10 10:35] LABS: Alanine Aminotransferase 23 U/L (6-50); Albumin Level 4.2 g/dL (3.5-5.1); Alkaline Phosphatase 85 U/L (38-126); Anion Gap 6 mmol/L (4-12); Aspartate Amino Transferase 31 U/L (17-59); Bilirubin,Total 1.5 mg/dL (0.2-1.3); Blood Urea Nitrogen 17 mg/dL (9-20); Calcium 9.3 mg/dL (8.4-10.2); Carbon Dioxide 31 mmol/L (22-30); Chloride 101 mmol/L (98-107); Estimated Glomerular Filt Rate > 60; Glucose 97 mg/dL (65-110); Osmolality Calculated 287 mOsm/kg (285-295); Potassium 4.0 mmol/L (3.4-5.0); Sodium 138 mmol/L (137-145); Total Protein 6.7 g/dL (6.3-8.2)
[2025-04-14 02:59] LABS: Hepatitis B Surface Antigen NON-REACTIVE (NON-REACTIVE)
[2025-04-14 03:53] LABS: Hepatitis A Antibody IgM NON-REACTIVE (NON-REACTIVE)
== END 2025-04-10 09:39 | disposition home or self-care (01) ==
LOC: CHSLAB 09:39
PROVIDERS: PCP Nurse Practitioner Family; Visit Provider Nurse Practitioner Family
DX: I10 Essential (primary) hypertension (principal); R17 Unspecified jaundice
CPT/HCPCS: 36415; 80053; 80074

== ENCOUNTER 2025-04-17 08:59 | Outpatient (CLI) | payer MEDICARE, SELFPAY ==
[2025-04-17] VITALS (7 sets, daily range): PULSE 105–146; O2SAT 92–98
--- OUTSIDE RECORDS SUMMARY | 2025-04-17 09:04 | XMS_ITS | Encounter Summary ---
Author Organization [facility] Address [address] [place] [address] Care Team Providers Care Handstitching Machine Collar Feller Name Role Phone Celi Falk SHERLEY Primary Care Provider +1- [phone] Reason for Referral * Imaging (Routine) - Closed Specialty Diagnoses / Procedures Referred By Contac t Referred To Contact RADIOLOGY Diagnoses Rectal cancer ([facility]/HCC [facility]/HCC) Procedures CT CHEST+ABD+PEL W CON Juliano Mustafa MD [address] [place] [address] Phone: tel: fax: Referral ID Status Reason Start Date Expiration Date Visits Re quested Visits Authorized [id number] Closed 10/17/2019 11/17/2020 1 1 N CHECKER Encounter Details Date Type Department Care Team (Late st Contact Info) Description 10/17/2019 Community Orders [facility] EPICCARE LINK Juliano Mustafa MD [address] [place] [address] Social History Tobacco Use Types Packs/Day Years Used Date Smoking Tobacco: Never Assessed Sex and Gender Information Value Date Recorded Sex Assigned at Not on file Legal Sex Male 5:47 PM LINEN CHECKER Gender Identity Not on file Sexual Orientation Not on file documented as of this encounter Plan of Treatment Not on file documented as of this encounter Results * CT CHEST+ABD+PEL W CON (11/13/2019 10:41 AM LINEN CHECKER) Anatomical Region Laterality Modality Chest, Abdomen, Pelvis Computed Tomography 11/14/2019 1:44 PM LINEN CHECKER Impressions 11/14/2019 1:55 PM LINEN CHECKER Impression: 1. Stable postsurgical changes of the colon with no definite signs of recurrent neoplasm. 2. No evidence of metastatic disease within the chest, abdomen or pelvis. 3. Stable soft tissue density in the presacral space, favored to represent posttreatment changes. Interpreted By: Obey Fierro MD, 11/14/2019 1:44 PM Narrative 11/14/2019 1:55 PM LINEN CHECKER Examination: CT chest, abdomen and pelvis with [...] rectum documented in this encounter Care Teams Handstitching Machine Collar Feller Relationship Specialty Start Date End Date Celi Falk FNP PCP - General NURSE PRACTITIONER 04/27/19 documented as of this encounter
--- OUTSIDE RECORDS SUMMARY | 2025-04-17 09:04 | XMS_ITS | Clinical Summary ---
Author Organization [facility] Address [address] [place] [address] Care Team Providers Care Retail Presentation Specialist Name Role Phone Celi Falk INSTRUCTOR EXTENSION WORK Primary Care Provider +1- [phone] Allergies Active Allergy Reactions Criticality Noted Date Comments Pentoxifylline Nausea Only,Dizziness 03/18/2021 Abdominal pain Sulfa Antibiotics Hives 03/18/2021 Medications No known medications Active Problems Problem Noted Date Diagnosed Date Primary hypertension 12/13/2022 Rectal cancer metastasized t o intra-abdominal lymph node ([facility]) 03/18/2021 Social History Tobacco Use Types Packs/Day Years Used Date Smoking Tobacco: Never Smokeless Tobacco: Never Tobacco Cessation:Counseling Given: Not Answered Sex and Gender Information Value Date Recorded Sex Assigned at Not on file Legal Sex Male 5:47 PM DAY HAUL OR FARM CHARTER BUS DRIVER Gender Identity Not on file Sexual Orientation Not on file Last Filed Vital Signs Vital Sign Reading Time Taken Comments Blood Pressure 198/121 12/13/2022 2:01 PM DAY HAUL OR FARM CHARTER BUS DRIVER Pulse 113 12/13/2022 2:01 PM DAY HAUL OR FARM CHARTER BUS DRIVER Temperature 36.2 C (97.2 F) 12/13/2022 2:01 PM DAY HAUL OR FARM CHARTER BUS DRIVER Respiratory Rate 22 11/18/2021 11:45 AM DAY HAUL OR FARM CHARTER BUS DRIVER Oxygen Saturation 96% 11/18/2021 11:45 AM DAY HAUL OR FARM CHARTER BUS DRIVER Inhaled Oxygen Concentration - - Weight 94.4 kg (208 lb 3.2 oz) 12/13/2022 2:01 P M DAY HAUL OR FARM CHARTER BUS DRIVER Height - - Body Mass Index - [...] complete this topic Insurance MEDICARE [facility] COMMERCIAL PAYER Care Teams Retail Presentation Specialist Relationship Specialty Start Date End Date Celi Falk FNP PCP - General NURSE PRACTITIONER 04/27/19
--- OUTSIDE RECORDS SUMMARY | 2025-04-17 09:04 | XMS_ITS | Patient Health Record ---
Author Organization [facility] Address [address] [place], [place] [id number] Care Team Providers Care Housekeeping Director Name Role Phone ADA BARRON Unavailable [phone] Celi Falk Unavailable Unavailable Reason For Referral No Information Plan Of Treatment No Information Insurance Providers Payer Name Payer Address Payer Phone Subscriber Number Group Number Insured Name Patient Relationship to Insured Coverage Start Date Coverage End Date Medicare Part B [facility] [address] [place] [phone] [id number] CHRISTOPHER BALLESTEROS Self - patient is the insured [address] [address] [phone] [id number] CHRISTOPHER BALLESTEROS Self - patient is the insured
--- NOTE | 2025-04-17 10:30 | BUHOMEO2 ---
[place] [facility] [place]
--- NOTE | 2025-05-03 14:44 | WPDPFTINT ---
PFT Procedure Performed PFT Procedure Performed Spirometry with Pre/Post Bronchodilator Plethysmography (Lung Vol) Diffusing Cap (DLCO) Flow Vol Loop PFT Interpretation DOS: 04/17/2025 REQUESTING: Wilfred Reid MD REASON FOR TESTING: Shortness of breath PULMONARY FUNCTION TESTS Results are reliable and reproducible. Repeatability of spirometry FEV1 maneuver pre and post bronchodilator is Grade A. [place]: Fabiola Cotton Dust reference equations were used. Spirometry: The pre-bronchodilator FEV1 is 1.23 L, 47%, decreased. The pre-bronchodilator FVC is 1.89 L, 55%, decreased. The FEV1/FVC ratio is 65%, decreased, consistent with airflow obstruction. After bronchodilator, the FEV1 is 1.45 L, 55%, +18%. After bronchodilator, the FVC is 2.18 L, 64%, +15%. The FEV1/FVC ratio is 67%, reduced consistent with airflow obstruction. Lung volumes: The total lung capacity is 3.82 L, 71%, reduced consistent with restriction. FRC is 1.5 0 L, 56%, reduced. The RV is 0.96 L, 46%. RV/TLC is 25%. Airway resistance is significantly elevated. Diffusion: DLCO is 19, 84%, normal. The DLCO/VA is 5.65, 151%. Flow volume loop: The flow volume loop shows coving of the expiratory limb. IMPRESSION: This study shows a severe obstructive ventilatory impairment with significant response after bronchodilator, mild restriction, and normal diffusion. There are no prior studies for comparison. Adelaida Gagnon MD
--- NOTE | 2025-05-03 14:52 | WPDSIXMINUTE ---
Six Minute Walk Procedure Procedure Performed Pulmonary Stress Test (6 min walk) Six Minute Walk Six Minute Walk: DATE OF SERVICE: 04/17/2025 REQUESTING: Wilfred Reid MD REASON FOR TESTING: Shortness of breath SIX MINUTE WALK This test was conducted per ATS guidelines. The initial saturation was 98%, and initial heart rate was 105 beats per minute. The patient walked without stopping, completing 365.7 m/1200 ft. The saturation at the end of testing was 93%, and the heart rate was 142 beats per minute. After 2 minutes of resting, saturation was 98% and pulse was 109 beats per minute. IMPRESSION: This is a normal study. The patient did not require supplemental oxygen with exertion. The patient has resting tachycardia. Clinical correlation recommended. Adelaida Gagnon MD
== END 2025-04-17 09:00 | disposition home or self-care (01) ==
LOC: CHSCARD 09:00
PROVIDERS: PCP Nurse Practitioner Family; Visit Provider Internal Medicine Pulmonary Disease
DX: R09.02 Hypoxemia (principal)
CPT/HCPCS: 94060; 94618; 94726; 94729

== ENCOUNTER 2025-05-08 09:52 | Outpatient (CLI) | payer MEDICARE, SELFPAY ==
--- NOTE | ~2025-05-08 | US_ITS ---
EXAMINATION: US retroperitoneal duplex ltd DATE: 05/15/2025 8:26 CDT INDICATION: Uncontrolled hypertension. Scoliosis. History of colon cancer with colostomy. TECHNIQUE: Sonographic imaging of the kidneys was performed with a 3.5 MHz transducer. Retroperitone al duplex sonogram of the renal arteries also obtained. FINDINGS: No focal flow abnormalities are seen in the renal arteries on color Doppler. The right kidn ey measures 8.2 cm without discrete mass or hydronephrosis. Left kidney measures 10.7 cm. There is no Doppler evidence of stenosis in the left renal artery. Peak systolic velocity in the left renal yadira ry is 51 cm/s. The right renal artery not visualized. Study limited due to patient body habitus and s coliosis. IMPRESSION: 1. Limited study. Right renal artery and aorta not adequately visualized. No evidence for stenosis i n the left renal artery. Reviewed, dictated and finalized at location A. IMPRESSION: 1. Limited study. Right renal artery and aorta not adequately visualized. No e vidence for stenosis in the left renal artery.
--- OUTSIDE RECORDS SUMMARY | 2025-05-08 10:17 | XMS_ITS | Clinical Summary ---
Author Organization [facility] Address [address] [place] [address] Care Team Providers Care Wig Sales Consultant Name Role Phone Celi Falk LINUX VMWARE ADMINISTRATOR Primary Care Provider +1- [phone] Allergies Active Allergy Reactions Criticality Noted Date Comments Pentoxifylline Nausea Only,Dizziness 03/18/2021 Abdominal pain Sulfa Antibiotics Hives 03/18/2021 Medications No known medications Active Problems Problem Noted Date Diagnosed Date Primary hypertension 12/13/2022 Rectal cancer metastasized t o intra-abdominal lymph node ([facility]) 03/18/2021 Social History Tobacco Use Types Packs/Day Years Used Date Smoking Tobacco: Never Smokeless Tobacco: Never Tobacco Cessation:Counseling Given: Not Answered Sex and Gender Information Value Date Recorded Sex Assigned at Not on file Legal Sex Male 5:47 PM PROPOSAL CONSULTANT Gender Identity Not on file Sexual Orientation Not on file Last Filed Vital Signs Vital Sign Reading Time Taken Comments Blood Pressure 198/121 12/13/2022 2:01 PM PROPOSAL CONSULTANT Pulse 113 12/13/2022 2:01 PM PROPOSAL CONSULTANT Temperature 36.2 C (97.2 F) 12/13/2022 2:01 PM PROPOSAL CONSULTANT Respiratory Rate 22 11/18/2021 11:45 AM PROPOSAL CONSULTANT Oxygen Saturation 96% 11/18/2021 11:45 AM PROPOSAL CONSULTANT Inhaled Oxygen Concentration - - Weight 94.4 kg (208 lb 3.2 oz) 12/13/2022 2:01 P M PROPOSAL CONSULTANT Height - - Body Mass Index [...] age to complete this topic Insurance MEDICARE [facility] COMMERCIAL PAYER Care Teams Wig Sales Consultant Relationship Specialty Start Date End Date Celi Falk FNP PCP - General NURSE PRACTITIONER 04/27/19
--- OUTSIDE RECORDS SUMMARY | 2025-05-08 10:17 | XMS_ITS | Patient Health Record ---
Author Organization [facility] Address [address] [place], [place] [address] Care Team Providers Care Traffic Signal Supervisor Maintenance Name Role Phone ADA BARRON Unavailable [phone] Celi Falk Unavailable Unavailable Reason For Referral No Information Plan Of Treatment No Information Insurance Providers Payer Name Payer Address Payer Phone Subscriber Number Group Number Insured Name Patient Relationship to Insured Coverage Start Date Coverage End Date Medicare Part B [facility] [address] [facility] [place] [phone] [id number] CHRISTOPHER BALLESTEROS Self - patient is the insured [address] [address] [id number] CHRISTOPHER BALLESTEROS Self - patient is the insured
--- OUTSIDE RECORDS SUMMARY | 2025-05-08 10:17 | XMS_ITS | Encounter Summary ---
Author Organization [facility] Address [address] [place] [address] Care Team Providers Care Lang Interpreter Name Role Phone Celi Falk SHERLEY Primary Care Provider [phone]- [phone] Reason for Referral * Imaging (Routine) - Closed Specialty Diagnoses / Procedures Referred By Contac t Referred To Contact RADIOLOGY Diagnoses Rectal cancer ([facility]/HCC [facility]/HCC) Procedures CT CHEST+ABD+PEL W CON Juliano Mustfaa MD [address] [place] [address] Phone: tel: fax: Referral ID Status Reason Start Date Expiration Date Visits Re quested Visits Authorized [id number] Closed 10/17/2019 11/17/2020 1 1 R RACER Encounter Details Date Type Department Care Team (Late st Contact Info) Description 10/17/2019 Community Orders [facility] EPICCARE LINK Juliano Mustafa MD [address] [place] [address] Social History Tobacco Use Types Packs/Day Years Used Date Smoking Tobacco: Never Assessed Sex and Gender Information Value Date Recorded Sex Assigned at Not on file Legal Sex Male 5:47 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 Stable postsurgical changes of the colon with no definite signs of recurrent neoplasm. 2. No evidence of metastatic disease within the chest, abdomen or pelvis. 3. Stable soft tissue density in the presacral space, favored to represent posttreatment changes. Interpreted By: Obey Fierro MD, 11/14/2019 1:44 PM Narrative 11/14/2019 1:55 PM MOTOR RACER Examination: CT chest, abdomen and pelvis with [...] rectum documented in this encounter Care Teams Lang Interpreter Relationship Specialty Start Date End Date Celi Falk FNP PCP - General NURSE PRACTITIONER 04/27/19 documented as of this encounter
== END 2025-05-08 09:53 | disposition home or self-care (01) ==
PROVIDERS: PCP Nurse Practitioner Family; Visit Provider Nurse Practitioner Family
DX: I10 Essential (primary) hypertension (principal)
CPT/HCPCS: 93976

== ENCOUNTER 2025-06-28 00:12 | Day surgery (SDC) | payer MEDICARE, SELFPAY ==
[2025-06-18 09:53] VITALS: BMI 31.4
--- OUTSIDE RECORDS SUMMARY | 2025-06-28 00:17 | XMS_ITS | Encounter Summary ---
Author Organization [facility] Address [address] [place] [address] Care Team Providers Care Maintenance Custodian Name Role Phone Celi Falk SHERLEY Primary Care Provider [phone]- [phone] Reason for Referral * Imaging (Routine) - Closed Specialty Diagnoses / Procedures Referred By Contac t Referred To Contact RADIOLOGY Diagnoses Rectal cancer ([facility]/HCC [facility]/HCC) Procedures CT CHEST+ABD+PEL W CON Juliano Mustafa MD [address] [place] [address] Phone: tel: fax: Referral ID Status Reason Start Date Expiration Date Visits Re quested Visits Authorized [id number] Closed 10/17/2019 11/17/2020 1 1 [employer]ENT [employer] Encounter Details Date Type Department Care Team (Late st Contact Info) Description 10/17/2019 Community Orders [facility] EPICCARE LINK Juliano Mustafa MD [address], [place] [id number] Social History Tobacco Use Types Packs/Day Years Used Date Smoking Tobacco: Never Assessed Sex and Gender Information Value Date Recorded Sex Assigned at Not on file 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 Stable postsurgical changes of the colon with no definite signs of recurrent neoplasm. 2. No evidence of metastatic disease within the chest, abdomen or pelvis. 3. Stable soft tissue density in the presacral space, favored to represent posttreatment changes. Interpreted By: Obey Fierro MD, 11/14/2019 1:44 PM Narrative 11/14/2019 1:55 PM SUPERINTENDENT [employer] Examination: CT chest, abdomen and pelvis with [...] rectum documented in this encounter Care Teams Maintenance Custodian Relationship Specialty Start Date End Date Celi Falk FNP PCP - General NURSE PRACTITIONER 04/27/19 documented as of this encounter
--- OUTSIDE RECORDS SUMMARY | 2025-06-28 00:17 | XMS_ITS | Patient Health Record ---
Author Organization [facility] Address [address] [place], [place] [id number] Care Team Providers Care Fitter/Welder Name Role Phone ADA BARRON Unavailable [phone] Celi Falk Unavailable Unavailable Reason For Referral No Information Plan Of Treatment No Information Insurance Providers Payer Name Payer Address Payer Phone Subscriber Number Group Number Insured Name Patient Relationship to Insured Coverage Start Date Coverage End Date Medicare Part B [facility] [address] [place] [id number] CHRISTOPHER BALLESTEROS Self - patient is the insured [address] [address] [id number] CHRISTOPHER BALLESTEROS Self - patient is the insured
[2025-06-28 07:48] VITALS: BP 169/90; PULSE 100; RESP 18; TEMP 36.9; O2SAT 99
[2025-06-28] MEDS: LACTATED RINGERS 1,000 ML 150 ML IV CONT (07:57)
--- NOTE | 2025-06-28 08:10 | P.PNAN_ITS ---
Anes - Initial Pre Proc Eval Procedure: Operation Date: 06/28/25 09:00 Proposed Procedures p Screening Colonoscopy - Jaspreet Campa MD Date/Time: 06/28/25 08:10 Surgeon: Jaspreet Campa MD Pre Op Diagnosis: screening Patient Data Age: 64 Gender: M Height: 1.7 m Weight: 95.5 kg Last Vital Signs Temp 36.9 C 06/28/25 07:48 Pulse 100 06/28/25 07:48 Resp 18 06/28/25 07:48 BP 169/90 H 06/28/25 07:48 Pulse Ox 99 06/28/25 07:48 O2 Del Method Room Air 06/28/25 07:48 Allergies Allergy/AdvReac Type Severity Reaction Status Date / Time Sulfa (Sulfonamide Allergy Intermediate Rash Verified 06/28/25 07:45 Antibiotics) lisinopril Allergy Mild Cough Verified 06/28/25 07:45 Home Medications ?Medication ?Instructions ?Recorded ?Confirmed ?Type carvedilol 12.5 mg tablet 12.5 mg PO Q12H #60 tabs 06/28/25 Rx hydrocodone 5 mg-acetaminophen 325 1 tablet PO QHS PRN pain (scale 04/24/25 06/28/25 Rx mg tablet score 7-10) #20 tabs amlodipine 5 mg tablet (Norvasc) 10 mg (2 x 5 mg) PO D AILY #60 tabs 05/08/25 06/28/25 Rx losartan 50 mg-hydrochlorothiazide See Rx Instructions .Route 06/26/25 06/28/25 Rx 12.5 mg tablet .COMPLEX #60 tabs Patient hx anesthesia problems: none Family hx anesthesia problems: none Results Review: All pre-operative results and documents have been reviewed as part of the pre- operative evaluation. [facility] Past Medical History Medical History (Updated 06/28/25 @ 08:12 by Trent Reynolds MD) Scoliosis Uncontrolled hypertension Rectal cancer Kyphoscoliosis Asthma Surgical History Surgical History (Updated 06/28/25 @ 08:13 by Trent Reynolds MD) H/O spinal fusion Sampson rods History of colostomy History of colectomy Family History Family History Father Family history of cardiovascular disease Social History Social History (Updated 06/28/25 @ 08:13 by Trent Reynolds MD) Smoking status: Former smoker Smoking end date: 10/10/86 Alcohol intake: current Drinks per week: 1 Substance use: current Substance use type: marijuana Last use: 2 weeks ago Do You Feel Safe in your Home?: Yes Lack of Transportation: No Lack of Food: Never True Current Housing: I Have Housing Concerned About Future Housing: No Difficulty Paying Gas/Electric Bills: No Difficulty Paying for Meds: No Currently Unemployed: No Education: Trade/Vocational Certificate Difficulty w/ Childcare or Family Care: No Living arrangements: with family Spiritual care concerns: No Anes - Eval Final PreProcedure Day of Procedure 06/28/25 08:10 Patient weight: obese Heart: regular rate and rhythm Lungs: clear to auscultation Airway: Mallampati scale class III and special considerations poor extension Neurological: alert and oriented Last oral intake: >/= 8 hours ASA classification: III Emergent: no Anesthetic plan: proceed Anesthesia type and monitoring: general GIVS and standard monitoring Results Review: All pre-operative results and documents have been reviewed as part of the pre- operative evaluation. Informed Consent: The patient's anesthetic plan and its attendant risks and benefits were discussed with the patient/family/POA. Questions were solicited and answers provided to the satisfaction of the patient/family/POA.
--- NOTE | 2025-06-28 08:52 | PM.IMHP ---
H&P: HPI History of Present Illness Date/Time: 06/28/25 08:52 Chief Complaint: History of rectal cancer Narrative: this patient has colorectal cancer treated surgically in 2018, having now at end colostomy. He is here for his 1st surveillance colonoscopy Review of Systems Review of Systems: All systems reviewed & are unremarkable except as noted in HPI and below PMFSH Past Medical History Medical History (Updated 06/28/25 @ 08:12 by Trent Reynolds MD) Scoliosis Uncontrolled hypertension Rectal cancer Kyphoscoliosis Asthma Surgical History Surgical History (Updated 06/28/25 @ 08:13 by Trent Reynolds MD) H/O spinal fusion Sampson rods History of colostomy History of colectomy Family History Family History Father Family history of cardiovascular disease Social History Social History (Updated 06/28/25 @ 08:13 by Trent Reynolds MD) Smoking status: Former smoker Smoking end date: 10/10/86 Alcohol intake: current Drinks per week: 1 Substance use: current Substance use type: marijuana Last use: 2 weeks ago Do You Feel Safe in your Home?: Yes Lack of Transportation: No Lack of Food: Never True Current Housing: I Have Housing Concerned About Future Housing: No Difficulty Paying Gas/Electric Bills: No Difficulty Paying for Meds: No Currently Unemployed: No Education: Trade/Vocational Certificate Difficulty w/ Childcare or Family Care: No Living arrangements: with family Spiritual care concerns: No Meds Home Medications and Allergies Home Medications ?Medication ?Instructions ?Recorded ?Confirmed ?Type carvedilol 12.5 mg tablet 12.5 mg PO Q12H #60 tabs 04/24/25 06/28/25 Rx hydrocodone 5 mg-acetaminophen 325 1 tablet PO QHS PRN pain (scale 04/24/25 06/28/25 Rx mg tablet score 7-10) #20 tabs amlodipine 5 mg tablet (Norvasc) 10 mg (2 x 5 mg) PO DAILY #60 tabs 05/08/25 06/28/25 Rx losartan 50 mg-hydrochlorothiazide See Rx Instructions .Route 06/26/25 06/28/25 Rx 12.5 mg tablet .COMPLEX #60 tabs Allergies Allergy/AdvReac Type Severity Reaction Status Date / Time Sulfa (Sulfonamide Allergy Intermediate Rash Verified 09/19/25 07:45 Antibiotics) lisinopril Allergy Mild Cough Verified 06/28/25 07:45 Vital Signs Vital Signs - 24 hr 06/28/25 07:48 Temperature 98.5 F Pulse Rate 100 Respiratory Rate 18 Blood Pressure 169/90 H Pulse Oximetry 99 Oxygen Delivery Room Air Exam Const: General: cooperative and healthy appearing Resp: Effort & Inspection: normal respiratory effort and able to speak in complete sentences Auscultation: clear to auscultation bilaterally Cardio: Rate: regular rate Rhythm: regular rhythm GI: Inspection: normal to inspection GI Palp: No No hepatosplenomegaly present Auscultation: normal bowel sounds Rectal Exam: deferred Skin: General skin exam: normal color Psych: Appearance: grossly normal Mental Status: mental status grossly normal Assessment and Plan Assessment and plan (1) History of rectal cancer: Code(s): Z85.048 - Personal history of other malignant neoplasm of rectum, rectosigmoid junction, and anus Status: Acute Assessment and Plan: The patient is deemed a good candidate for the procedure. Consent signed. Will proceed.
[2025-06-28] MEDS: SIMETHICONE ORAL SUSPENSION 20 MG/0.3 ML 30 ML BOTTLE 0.6 ML IRRIGATION (09:07)
[2025-06-28 09:20] VITALS: BP 115/76; PULSE 82; RESP 19; O2SAT 96
[2025-06-28 09:30] VITALS: BP 132/80; PULSE 94; RESP 20; O2SAT 98
[2025-06-28 09:40] VITALS: BP 140/85; PULSE 83; RESP 23; O2SAT 98
== END 2025-06-28 09:49 | disposition home or self-care (01) ==
PROVIDERS: PCP Nurse Practitioner Family; Referring Provider Nurse Practitioner Family; Visit Provider Internal Medicine Gastroenterology
PROC: 0DJD8ZZ Inspection of Lower Intestinal Tract, Via Natural or Artificial Opening Endoscopic (ICD-10-PCS; CPT 45378; principal; 2025-06-28 09:00)
DX: Z08 Encounter for follow-up examination after completed treatment for malignant neoplasm (principal); K57.30 Diverticulosis of large intestine without perforation or abscess without bleeding; Z85.048 Personal history of other malignant neoplasm of rectum, rectosigmoid junction, and anus; Z90.49 Acquired absence of other specified parts of digestive tract; Z93.3 Colostomy status; Z87.891 Personal history of nicotine dependence; F12.90 Cannabis use, unspecified, uncomplicated
CPT/HCPCS: 44388; J2003; J2704; J7120